=== PATIENT | female | born 1955 | race Caucasian/White ===

== ENCOUNTER 2020-04-02 23:42 | Inpatient (IN) | payer MEDICARE, SELFPAY ==
[2020-04-02 23:42] VITALS: TEMP 35.9; BMI 30.2
[2020-04-02 23:47] VITALS: PULSE 115; RESP 14; O2SAT 100
[2020-04-02 23:49] VITALS: BP 44/19; BP 78/25; PULSE 164; PULSE 47; RESP 10; RESP 12; TEMP 35.7; O2SAT 100; O2SAT 99
--- NOTE | 2020-04-02 23:54 | EKG12_ITS ---
Test Reason : RESP FAILURE Blood Pressure : / mmHG Vent. Rate : 114 BPM Atrial Rate : 114 BPM P-R Int : 174 ms QRS Dur : 084 ms QT Int : 322 ms P-R-T Axes : 040 077 012 degrees QTc Int : 443 ms Sinus tachycardia Right atrial enlargement Nonspecific ST and T wave abnormality Abnormal ECG Confirmed by MAYA FARRAR, PAPITO ([id number]), scientific editor ROBERT BA ([id number]) on 04/03/2020 12:54:02 PM Referred By: DARIUS Confirmed By:PAPITO TREJO MD
[2020-04-03] VITALS (50 sets, daily range): BP systolic 109–220; BP diastolic 50–114; PULSE 75–116; RESP 12–97; TEMP 35.9–38.7; O2SAT 16–100; BMI 26.4; BMI 58.2
--- NOTE | 2020-04-03 | RAD_ITS ---
STUDY: X-RAY CHEST REASON FOR EXAM: Female, 64 years old. Endotracheal and orogastric tube placements. TECHNIQUE: AP portable chest. COMPARISON: January 24, 2017. FINDINGS: Endotracheal tube tip 3.9 cm above the homer. Orogastric tube looped in the stomach with tip in the gastric fundus under the apex of the left hemidiaphragm. Subtle patchy perihilar and bibasilar lung opacities. Small right pleural effusion may be present. No pneumothorax. Normal size heart. Normal mediastinum and santiago. Normal visualized pulmonary arteries. Normal visualized aortic arch and descending thoracic aorta. Normal visualized thoracic spine. Deformity of the right humeral head unchanged. Degenerative changes of the left shoulder. There is no demonstrated abnormality of the visualized soft tissue structures of the upper abdomen. RAD/Chest 1 View (Portable) IMPRESSION: Support tubes in their expected locations. Mild vascular congestion and/or bilateral pneumonia. Electronically Signed: Raad Farrell MD at 1:14 EST , Service support ,
[2020-04-03] MEDS: Etomidate 20 MG/10 ML Vial 22 MG IV (00:03)
[2020-04-03] MEDS: Rocuronium Bromide 50 MG/5 ML Vial 100 MG IV (00:03)
[2020-04-03] MEDS: 0.9% Normal Saline 1,000 ML 1000 ML IV (00:04)
[2020-04-03] MEDS: Ipratropium/Albuterol Sulfate 3 ML AMPUL.NEB INHALATION ×5 (00:05→18:57)
[2020-04-03] MEDS: Albuterol 2.5 MG/3 ML VIAL.NEB. INHALATION ×3 (00:05)
--- NOTE | 2020-04-03 00:09 | ED.DCSUM_ITS ---
History of Present Illness Chief Complaint: CPR Informant: Patient Onset: Today Context: Sudden Onset Timing: Continuous Current Severity: Severe Maximum Severity: Severe Narrative: The patient is a 64-year-old female with questionable history of COPD, history of prior drug abuse, who presents to the emergency department with acute shortness of breath. Patient lives with her boyfriend. He apparently called because the patient was unresponsive. On squad arrival, the patient had pinpoint pupils and was apneic. There was drug paraphernalia at the scene. She was given intranasal Narcan. After Narcan, the patient became alert, but acutely combative, dyspneic, and markedly hypertensive. There is also concern for methamphetamine use. Squad was able to establish an EJ. The patient was not tolerating BiPAP and was combative the squad. On arrival, she is tachypneic and cyanotic. She does not give much history. Her saturations were in the upper 50s to low 60s. Prior similar symptoms: No Recent Illness/Hospitalization: No Past Medical History - Allergies and Home Meds Allergies/Adverse Reactions: Allergies No Known Allergies Allergy (Verified 01/21/17 17:53) Prior records reviewed: Yes Past Medical History: - - History of severe smoking, history of drug abuse Surgical History: noncontributory Smoking Status: Unknown if ever smoked Review of Systems ROS: Unable to Obtain Physical Exam Vital Signs/Narrative: Vital Signs Temp Temp Pulse Pulse Pulse Resp Resp 04/03/20 00:01 96.7 F L 113 H 14 04/02/20 23:49 96.3 F L 47 L 164 H 10 L 04/02/20 23:42 96.7 F L Resp BP BP BP Pulse Ox 04/03/20 00:01 220/110 H 100 04/02/20 23:49 12 44/19 L 78/25 L 04/02/20 23:42 Inital Vital Signs reviewed: Yes General: Acute Distress Head: Normocephalic Eyes: Perrl, EOMI Neck: Supple Cardiovascular: Regular rate, No murmurs, Tachycardia Respiratory: Diminished, Decreased Air Movement Abdomen: Soft, Nontender, Nondistended, Normal bowel sounds Extremities: Nontender Skin: Cyanosis Neurological: Confused, Disoriented Psychological: Agitated Diagnostic/Tx/Re-eval Clinical Impression(s) from Imaging Studies Chest X-Ray 04/03/20 00:00 IMPRESSION: Support tubes in their expected locations. Mild vascular congestion and/or bilateral pneumonia. Electronically Signed: Raad Farrell MD at 1:14 EST , Service support , Abnormal Lab Results 04/03/20 04/03/20 04/03/20 00:08 00:10 00:10 WBC 20.2 H RBC 4.81 Hgb 15.5 H Hct 50.4 H MCV 104.8 H MCH 32.2 H MCHC 30.8 L RDW Std Deviation 56.0 H RDW Coeff of Josue 14.2 Plt Count 323 MPV 9.8 Immature Gran % (Auto) 1.100 H Neut % (Auto) 77.4 H Lymph % (Auto) 14.9 L [place] % (Auto) 5.8 Eos % (Auto) 0.3 Baso % (Auto) 0.5 Absolute Neuts (auto) 15.6 H Absolute Lymphs (auto) 3.00 Nucleated RBC % 0 PT INR Specimen Type Sample Site pH Bicarbonate Actual Total CO2 Base Excess O2 Saturation O2 % ABG pCO2 ABG pO2 Respiration Rate O2 Delivery Device Vent Mode Tidal Volume POC PEEP Sodium 142 Potassium 4.1 Chloride 111 H Carbon Dioxide 24.0 Anion Gap 7 BUN 41 H Creatinine 1.62 H Estim Creat Clear Calc 28.11 Est GFR (MDRD) Af Amer 41 L Est GFR (MDRD) Non-Af 34 L BUN/Creatinine Ratio 25.3 H Glucose 136 H Lactic Acid Calcium 8.9 Phosphorus Magnesium Total Bilirubin 0.40 AST 302 H ALT 221 H Alkaline Phosphatase 129 H Troponin I 0.112 H B-Natriuretic Peptide Total Protein 7.4 Albumin 3.7 Globulin 3.7 Albumin/Globulin Ratio 1.0 Lipase 59 L Urine Color Urine Clarity Urine pH Ur Specific [place] Urine Protein Urine Glucose (UA) Urine Ketones Urine Occult Blood Urine Nitrite Urine Bilirubin Urine Urobilinogen Ur Leukocyte Esterase Urine RBC Urine WBC Ur Squamous Epith Cells Urine Bacteria Urine Mucus Urine Opiates Screen POSITIVE H Urine Methadone Screen NEGATIVE Ur Barbiturates Screen NEGATIVE Ur Phencyclidine Scrn NEGATIVE Ur Amphetamines Screen POSITIVE H U Methamphetamin-MDMA POSITIVE H U Benzodiazepines Scrn NEGATIVE Urine Cocaine Screen NEGATIVE U Cannabinoids Screen POSITIVE H Ur Drug Screen Comment Ethyl Alcohol 04/03/20 04/03/20 04/03/20 00:10 00:10 00:10 WBC RBC Hgb Hct MCV MCH MCHC RDW Std Deviation RDW Coeff of Jouse Plt Count MPV Immature Gran % (Auto) Neut % (Auto) Lymph % (Auto) [place] % (Auto) Eos % (Auto) Baso % (Auto) Absolute Neuts (auto) Absolute Lymphs (auto) Nucleated RBC % PT INR Specimen Type Sample Site pH Bicarbonate Actual Total CO2 Base Excess O2 Saturation O2 % ABG pCO2 ABG pO2 Respiration Rate O2 Delivery Device Vent Mode Tidal Volume POC PEEP Sodium Potassium Chloride Carbon Dioxide Anion Gap BUN Creatinine Estim Creat Clear Calc Est GFR (MDRD) Af Amer Est GFR (MDRD) Non-Af BUN/Creatinine Ratio Glucose Lactic Acid 1.8 Calcium Phosphorus Magnesium Total Bilirubin AST ALT Alkaline Phosphatase Troponin I B-Natriuretic Peptide 376.8 H Total Protein Albumin Globulin Albumin/Globulin Ratio Lipase Urine Color Urine Clarity Urine pH Ur Specific [place] Urine Protein Urine Glucose (UA) Urine Ketones Urine Occult Blood Urine Nitrite Urine Bilirubin Urine Urobilinogen Ur Leukocyte Esterase Urine RBC Urine WBC Ur Squamous Epith Cells Urine Bacteria Urine Mucus Urine Opiates Screen Urine Methadone Screen Ur Barbiturates Screen Ur Phencyclidine Scrn Ur Amphetamines Screen U Methamphetamin-MDMA U Benzodiazepines Scrn Urine Cocaine Screen U Cannabinoids Screen Ur Drug Screen Comment Ethyl Alcohol < 3.0 04/03/20 04/03/20 04/03/20 00:10 00:10 00:16 WBC RBC Hgb Hct MCV MCH MCHC RDW Std Deviation RDW Coeff of Josue Plt Count MPV Immature Gran % (Auto) Neut % (Auto) Lymph % (Auto) [place] % (Auto) Eos % (Auto) Baso % (Auto) Absolute Neuts (auto) Absolute Lymphs (auto) Nucleated RBC % PT 14.3 INR 1.2 Specimen Type Sample Site pH Bicarbonate Actual Total CO2 Base Excess O2 Saturation O2 % ABG pCO2 ABG pO2 Respiration Rate O2 Delivery Device Vent Mode Tidal Volume POC PEEP Sodium Potassium Chloride Carbon Dioxide Anion Gap BUN Creatinine Estim Creat Clear Calc Est GFR (MDRD) Af Amer Est GFR (MDRD) Non-Af BUN/Creatinine Ratio Glucose Lactic Acid Calcium Phosphorus 5.7 H Magnesium 2.4 Total Bilirubin AST ALT Alkaline Phosphatase Troponin I B-Natriuretic Peptide Total Protein Albumin Globulin Albumin/Globulin Ratio Lipase Urine Color Yellow Urine Clarity Clear Urine pH 6.0 Ur Specific [place] 1.020 Urine Protein 100 H Urine Glucose (UA) Normal Urine Ketones Negative Urine Occult Blood 25 H Urine Nitrite Negative Urine Bilirubin Negative Urine Urobilinogen Normal Ur Leukocyte Esterase Negative Urine RBC 0-5 SEEN Urine WBC 0 SEEN Ur Squamous Epith Cells 0 SEEN Urine Bacteria 0 SEEN Urine Mucus 0 SEEN Urine Opiates Screen Urine Methadone Screen Ur Barbiturates Screen Ur Phencyclidine Scrn Ur Amphetamines Screen U Methamphetamin-MDMA U Benzodiazepines Scrn Urine Cocaine Screen U Cannabinoids Screen Ur Drug Screen Comment Ethyl Alcohol 04/03/20 00:17 WBC RBC Hgb Hct MCV MCH MCHC RDW Std Deviation RDW Coeff of Josue Plt Count MPV Immature Gran % (Auto) Neut % (Auto) Lymph % (Auto) [place] % (Auto) Eos % (Auto) Baso % (Auto) Absolute Neuts (auto) Absolute Lymphs (auto) Nucleated RBC % PT INR Specimen Type ART Sample Site R Radial pH 7.08 L* Bicarbonate Actual 23.5 Total CO2 26 Base Excess -6 L O2 Saturation 99 O2 % 100 ABG pCO2 78.7 H* ABG pO2 197 H Respiration Rate 14 O2 Delivery Device Adult Vent Vent Mode AC Tidal Volume 450 POC PEEP 5 Sodium Potassium Chloride Carbon Dioxide Anion Gap BUN Creatinine Estim Creat Clear Calc Est GFR (MDRD) Af Amer Est GFR (MDRD) Non-Af BUN/Creatinine Ratio Glucose Lactic Acid Calcium Phosphorus Magnesium Total Bilirubin AST ALT Alkaline Phosphatase Troponin I B-Natriuretic Peptide Total Protein Albumin Globulin Albumin/Globulin Ratio Lipase Urine Color Urine Clarity Urine pH Ur Specific [place] Urine Protein Urine Glucose (UA) Urine Ketones Urine Occult Blood Urine Nitrite Urine Bilirubin Urine Urobilinogen Ur Leukocyte Esterase Urine RBC Urine WBC Ur Squamous Epith Cells Urine Bacteria Urine Mucus Urine Opiates Screen Urine Methadone Screen Ur Barbiturates Screen Ur Phencyclidine Scrn Ur Amphetamines Screen U Methamphetamin-MDMA U Benzodiazepines Scrn Urine Cocaine Screen U Cannabinoids Screen Ur Drug Screen Comment Ethyl Alcohol - Rhythm Strip Rhythm Strip: Sinus Tach Rate: 110 Ectopy: None - EKG Initial EKG Interpretation: Sinus Tachycardia, Non-Specific ST Changes Prior: No Prior - Medical Decision Making On arrival, the patient is cyanotic and combative. We were unable to get a good peripheral pulse ox. The highest was in the mid 60s. She would not tolerate the BiPAP. Decision was made to intubate the patient. The patient was intubated easily using glide scope. A 7.5 tube was placed. However, immediately after intubation, the patient had bradycardia and then lost pulses. This was a pproximately 5 to 10 seconds. CPR was started immediately. Patient was given 1 mg of epinephrine. After 2 minutes of CPR, the patient had return of spontaneous circulation. She had a perfusing rhythm. My suspicion is that she likely was markedly hypoxic causing her bradycardia and loss of pulse. Now that her oxygen is improved, her vitals have stabilized. The patient ended up being very hypertensive. She was given 2 mg of Ativan as I do feel that this is likely all drug-induced. Due to concern for aspiration, she was covered with Zosyn. She does have a marked leukocytosis, evidence of mild acute kidney injury, and her blood gas does show that she is hypercapnic. The patient was ventilated. Chest x-ray shows evidence of pulmonary edema and questionable pneumonia. The patient was also given Lasix. Noncontrast head CT was unremarkable. Her urine tox was positive for multiple substances. At this point, given the patient's acute respiratory failure, she will be admitted to the intensive care unit. Impression 1. Acute respiratory failure 2. Drug overdose 3. Flash pulmonary edema 4. Aspiration pneumonia 5. Sepsis 6. Respiratory arrest 7. Intubation by ED physician - Critical Care Time Critical care time (excluding procedures): 30-74 minutes, Discussing w/Patient &/or Family/[employer]r, Discussing w/Consultants, Arranging Admission or Transfer, Performing Direct Patient Care at Bedside ED Disposition - Plan for ED Patient:
[2020-04-03 00:19] LABS: Absolute Neutrophil Count 15.6 X10^3/uL (2.0-7.7); Basophil% 0.5 % (0-1); Eosinophil# 0.06 X10^3/uL; Eosinophils% 0.3 % (0-5); Hematocrit 50.4 % (37-47); Hemoglobin 15.5 g/dL (12.0-15.0); Lymphocyte % 14.9 % (19-41); Mean Corp Hgb Conc 30.8 g/dL (32-36); Mean Corpuscular Hgb 32.2 pg (27.0-32.0); Mean Corpuscular Volume 104.8 fL (81-99); Mean Platelet Vol. 9.8 fl (6.2-12.0); Monocyte# 1.18 X10^3/uL; Monocyte% 5.8 % (0-10); NRBC Flagged by Analyzer 0 % (0-5); Neutrophil # 15.62 X10^3/uL (2.7-7.7); Neutrophil % 77.4 % (47-70); Platelet Count 323 K/mm3 (150-450); RBC Distribution Width CV 14.2 % (11.6-14.6); Red Blood Count 4.81 M/mm3 (4.2-5.4); White Blood Count 20.2 K/mm3 (4.4-11.0)
[2020-04-03 00:20] LABS: Bacteria 0 SEEN /hpf (None Seen); Color, Urine Yellow (Yellow); Glucose, Dipstick Normal (Normal); Ketone-Dipstick Negative (Negative); Leukocyte Esterase-Dipstick Negative /ul (Negative); Mucous, Urine 0 SEEN /hpf (<or=2+); Nitrite-Dipstick Negative (Negative); Occult Blood-Urine 25 /ul (Negative); Protein-Dipstick 100 mg/dl (Negative); Squamous Epithelial Cells - UA 0 SEEN /hpf (5-10); Urine Bilirubin Dipstick Negative (Negative); Urine Clarity Clear (Clear); Urine Urobilinogen Normal (Normal); White Blood Cells 0 SEEN /hpf (0-5)
[2020-04-03] MEDS: LORazepam 2 MG/ML Syringe IV (00:25)
[2020-04-03 00:26] LABS: Base Excess -6 mmol/L (-2 to +2); Bicarbonate 23.5 mmol/L (22-26); Blood Gas Specimen Type ART; FI02 100; Mode AC; O2 Delivery Device Adult Vent; PEEP 5; PO2 197 mmHG (75-100); RR 14; SITE R Radial; SO2 99 % (95-99); Total Carbon Dioxide 26 mmol/L; Vt 450; pCO2 78.7 mmHg (35-45); pH 7.08 (7.35-7.45)
[2020-04-03 00:26] LABS: Red Blood Cells-Urine 0-5 SEEN /hpf (0-5)
[2020-04-03 00:31] LABS: Alcohol, Blood (Medical)-Serum < 3.0 mg/dL
[2020-04-03 00:34] LABS: International Normalized Ratio 1.2; Prothrombin Time (Protime)PT. 14.3 SECONDS (11.7-14.9)
[2020-04-03 00:34] LABS: Amphetamine Urine VISTA POSITIVE (<1000 ng/mL); Barbiturate Urine VISTA NEGATIVE (< 200 ng/mL); Benzodiazepine Urine VISTA NEGATIVE (< 200 ng/mL); Cocaine Urine VISTA NEGATIVE (< 300 ng/mL); Ecstacy Urine VISTA POSITIVE (< 500 ng/mL); Methadone Urine VISTA NEGATIVE (< 300 ng/mL); PCP Urine VISTA NEGATIVE (< 25 ng/mL); THC Urine VISTA POSITIVE (< 50 ng/mL); Vista UDS pH Range 6
[2020-04-03 00:35] LABS: BNP,B-Type NATRIURETIC PEPTIDE 376.8 pg/mL (0-100)
[2020-04-03 00:39] LABS: AST(SGOT) 302 U/L (15-37); Alanine Aminotransfer ALT/SGPT 221 U/L (13-56); Albumin, Serum 3.7 g/dL (3.2-5.0); Alkaline Phosphatase 129 U/L (45-117); Anion Gap 7 (5-15); BUN 41 mg/dL (7-18); BUN/Creat Ratio 25.3 RATIO (10-20); Calcium,Total 8.9 mg/dL (8.5-10.1); Chloride 111 mmol/L (98-107); Creatinine, Serum 1.62 mg/dL (0.55-1.02); EST Glomerular Filtration Rate 34 mL/min (>60); Est Glom Filt Rate - Afr Amer 41 mL/min (>60); Estimated Creatinine Clearance 28.11 ml/min; Globulin 3.7 g/dL (2.2-4.2); Glucose 136 mg/dL (74-106); Lipase 59 U/L (73-393); Potassium 4.1 mmol/L (3.5-5.1); Protein, Total 7.4 g/dL (6.4-8.2); Sodium Level 142 mmol/L (136-145)
[2020-04-03] MEDS: Furosemide 40 MG/4 ML Vial IV ×3 (00:42→17:06)
--- NOTE | 2020-04-03 00:45 | HP.PCM_ITS ---
Problem List (1) Sepsis Status: Acute Qualifiers: Sepsis type: sepsis due to unspecified organism Sepsis acute organ dysfunction status: unspecified Qualified Code(s): A41.9 - Sepsis, unspecified organism (2) Respiratory failure with hypoxia and hypercapnia Status: Acute Qualifiers: Chronicity: acute Qualified Code(s): J96.01 - Acute respiratory failure with hypoxia; J96.02 - Acute respiratory failure with hypercapnia (3) Pneumonia Status: Acute Qualifiers: Pneumonia type: due to unspecified organism Laterality: unspecified laterality Lung location: unspecified part of lung Qualified Code(s): J18.9 - Pneumonia, unspecified organism (4) Flash pulmonary edema Status: Acute (5) Opiate overdose Status: Acute Qualifiers: Encounter type: initial encounter Injury intent: undetermined intent Qualified Code(s): T40.604A - Poisoning by unspecified narcotics, undetermined, initial encounter (6) Cardiac arrest Status: Acute (7) CORNELIUS (acute kidney injury) Status: Acute (8) Elevated LFTs Status: Acute (9) Tobacco use Status: Chronic (10) HTN (hypertension) Status: Chronic Qualifiers: Hypertension type: essential hypertension Qualified Code(s): I10 - Essential (primary) hypertension (11) HLD (hyperlipidemia) Status: Chronic Qualifiers: Hyperlipidemia type: unspecified Qualified Code(s): E78.5 - Hyperlipidemia, unspecified (12) Anxiety and depression Status: Chronic (13) Opiate abuse, continuous Status: Chronic (14) Alcohol abuse Status: Chronic History of Present Illness Date of Admission: 04/03/20 Chief Complaint: OD, cardiac arrest The patient is a 64 y/o F w/ PMHx: Hypothyroidism, Anxiety and Depression, Heavy Tobacco use, EtOH Abuse (6 pack beer daily per daughter), Known Opiate abuse with prior history of withdrawal treatments with unfortunate relapse over the last several years secondary to the of her and son, Obesity who presents to the [facility] ED on 04/03/20 found unresponsive and cyanotic around the mouth and finger tips with agonal breathing per her boyfriend with recent intake of unclear drugs prompting her boyfriend to call EMS. Upon evaluation EMS noted that she was unresponsive with pinpoint pupils with immediate administration of Narcan awaking the patient. Upon transition to the ED patient was noted to be s ignificantly hypertensive with hypoxia in the 60s with no improvement despite even BiPAP usage with immediate intubation upon ED presentation. While in the emergency room patient did have onset of significant bradycardia with cardiac arrest with lack of pulse with initiation of 2 minutes of CPR and 1 mg of epinephrine with resumption of circulation. Additional work-up in the ED included initially T 96.7, heart rate 115, BP is initially extremely hypotensive however following intubation blood pressures became elevated at 220/114, most recent vital signs with T1 100.4 core temperature, heart rate 75, BP 109/64, respiratory rate 21, 97% mechanically ventilated with 70% FiO2, CBC with WBC 20.2, hemoglobin 15.5, platelet 323 with left shift, unremarkable coags, ABG with pH 7.08, PCO2 78.7, PO2 197 ventilated, CMP with chloride 111, BUN/creatinine 41/1.62, glucose 136, lactic acid 1.8, Phos 5.7, magnesium 2.4, total bilirubin 0.40, AST/ALT 302/221, alk phos 129, troponin 0 0.112, BNP 376.8 , lipase 59, urinalysis with specific gravity 1.020 otherwise not marked appearing, UDS with positive opiates, amphetamines, methamphetamines, cannabis, ethyl alcohol less than 3, blood culture x2 pending per ED, chest x-ray with vascular congestion versus bilateral pneumonia with ET tube and OG in place, CT of the brain with no acute intracranial findings per ED report but final read per radiology pending upon evaluation, EKG with sinus tachycardia with nonspecific ST changes with no acute evidence of ischemia. In the ED patient administered normal saline, rocuronium, Zosyn, Ativan, Lasix 40 mg IV x1, etomidate, DuoNeb and albuterol therapies, maintained on a Versed and fentanyl drip. Past Medical History Past Medical History (Chronic Problems): Chronic Problems Tobacco use (Chronic) HTN (hypertension) (Chronic) HLD (hyperlipidemia) (Chronic) Anxiety and depression (Chronic) Opiate abuse, continuous (Chronic) Alcohol abuse (Chronic) Allergies No Known Allergies Allergy (Verified 01/21/17 17:53) Home Medications: Ambulatory Orders Medication Instructions Recorded Amlodipine [Norvasc] 5 mg PO DAILY #30 tab 01/24/17 Amox/Clavulanate Tablet [Augmentin 875 mg PO Q12H #14 tab 01/24/17 Tablet] Fluoxetine [Prozac] 20 mg PO DAILY #30 cap 01/24/17 Folic Acid 1 mg PO DAILY@0800 #30 tab 01/24/17 Levothyroxine [Synthroid] 25 mcg PO DAILY@0600 #30 tab 01/24/17 Metoprolol Tartrate [Lopressor 50 mg PO BID #90 tab 01/24/17 (beta esha)] Nicotine [Nicoderm Cq (PBKC)] 21 mg TRANSDERM. DAILY #42 patch 01/24/17 Potassium Chloride Oral Tablet 20 meq PO DAILY #30 tab 01/24/17 [K-Dur] Thiamine Hydrochloride [Vitamin B1] 100 mg PO DAILYCM #30 tab 01/24/17 Surgical History: - - History of prior shoulder surgery, unclear for placement or arthroscopic per discussion with daughter, tailbone surgery, tonsillectomy. 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 Smoking Status: Current every day smoker Tobacco Use: Cigarettes Alcohol: Heavy - Per daughter report patient intake of at least 6 pack of beer daily. Drugs: - - Patient with reportedly OPD abuse but unclear specific history of usage, EMS commented on methamphetamines at scene, urine drug screen with positive opiates, amphetamine, methamphetamine, cannabis. - *Family History Maternal History Items: Hypertension Paternal History Items: Hypertension Review of Systems Unable to obtain accurate/complete ROS d/t: Unable to obtain as intubated, sedated, presented following OD. VTE Information - Inpt Only VTE Present on Admission: No VTE Mechan Device Prophylaxis: SCD's VTE Pharm Prophylaxis ordered?: Yes Subjective: Patient laying in the ED bed, sedated, intubated, no acute distress currently. Objective: Physical Examination: General: Patient sedated, intubated, laying in the ED bed, no acute distress noted. Skin: normal color, turgor, no icterus, cyanosis. HEENT: AT/NC, EOM unable to be assessed given intubated and sedated status, PERRLA, no longer pinpoint per EMS report initially with Narcan administration, dry MM, no carotid bruits or JVD noted. Lungs: Significantly coarse bilaterally, rales bases, intubated and sedated, symmetric rise, no obvious wheezing. Heart: Tachycardic with regular rhythm; no gallop, rub audible. Abdomen: soft, obese, NTTP, ND, normal BS, no HSM. Extremities: no cyanosis, clubbing, or edema. Neurological: Patient sedated, intubated, unable to answer any orientation questions; cognitive function not baseline intact; pupils equally reactive to light and accomodation; cranial nerves unable to be assessed given intubated and sedated status, not moving extremities to stimuli, strength accordingly severely globally decreased. Psychiatric: affect appears flat, sedated, no acute evidence of depressive or anxiety feelings. - Physical Exam Vitals/I&O's: Vital Signs Temp Pulse Resp BP Pulse Ox 100.3 F H 97 14 164/86 H 96 04/03/20 00:39 04/03/20 00:39 04/03/20 00:39 04/03/20 00:39 04/03/20 00:39 Oxygen Delivery Method Mechanical Ventilator Weight: 165 lb Body Mass Index (BMI) 30.2 Finger Stick Blood Glucose 77 Laboratory Results 04/03/20 00:08: Urine Opiates Screen POSITIVE H, Urine Methadone Screen NEGATIVE, Ur Barbiturates Screen NEGATIVE, Ur Phencyclidine Scrn NEGATIVE, Ur Amphetamines Screen POSITIVE H, U Methamphetamin-MDMA POSITIVE H, U Benzodiazepines Scrn NEGATIVE, Urine Cocaine Screen NEGATIVE, U Cannabinoids Screen POSITIVE H, Ur Drug Screen Comment 04/03/20 00:10: WBC 20.2 H, RBC 4.81, Hgb 15.5 H, Hct 50.4 H, MCV 104.8 H, MCH 32.2 H, MCHC 30.8 L, RDW Std Deviation 56.0 H, RDW Coeff of Josue 14.2, Plt Count 323, MPV 9.8, Immature Gran % (Auto) 1.100 H, Neut % (Auto) 77.4 H, Lymph % (Auto) 14.9 L, [place] % (Auto) 5.8, Eos % (Auto) 0.3, Baso % (Auto) 0.5, Absolute Neuts (auto) 15.6 H, Absolute Lymphs (auto) 3.00, Nucleated RBC % 0 04/03/20 00:10: Sodium 142, Potassium 4.1, Chloride 111 H, Carbon Dioxide 24.0, Anion Gap 7, BUN 41 H, Creatinine 1.62 H, Estim Creat Clear Calc 28.11, Est GFR (MDRD) Af Amer 41 L, Est GFR (MDRD) Non-Af 34 L, BUN/Creatinine Ratio 25.3 H, Glucose 136 H, Calcium 8.9, Total Bilirubin 0.40, AST 302 H, ALT 221 H, Alkaline Phosphatase 129 H, Troponin I 0.112 H, Total Protein 7.4, Albumin 3.7, Globulin 3.7, Albumin/Globulin Ratio 1.0, Lipase 59 L 04/03/20 00:10: Ethyl Alcohol < 3.0 04/03/20 00:10: Lactic Acid Pending 04/03/20 00:10: B-Natriuretic Peptide 376.8 H 04/03/20 00:10: Urine Color Yellow, Urine Clarity Clear, Urine pH 6.0, Ur Specific [place] 1.020, Urine Protein 100 H, Urine Glucose (UA) Normal, Urine Ketones Negative, Urine Occult Blood 25 H, Urine Nitrite Negative, Urine Bilirubin Negative, Urine Urobilinogen Normal, Ur Leukocyte Esterase Negative, Urine RBC 0-5 SEEN, Urine WBC 0 SEEN, Ur Squamous Epith Cells 0 SEEN, Urine Bacteria 0 SEEN, Urine Mucus 0 SEEN 04/03/20 00:10: Phosphorus Pending, Magnesium Pending 04/03/20 00:16: PT 14.3, INR 1.2 04/03/20 00:17: Specimen Type ART, Sample Site R Radial, pH 7.08 L*, Bicarbonate Actual 23.5, Total CO2 26, Base Excess -6 L, O2 Saturation 99, O2 % 100, ABG pCO2 78.7 H*, ABG pO2 197 H, Respiration Rate 14, O2 Delivery Device Adult Vent, Vent Mode AC, Tidal Volume 450, POC PEEP 5 Current Medications Sodium Chloride () 1,000 mls @ 1,000 mls/hr IV .Q1H ONE Stop: 04/03/20 00:53 Last Admin: 04/03/20 00:04 Dose: 1,000 mls/hr Documented by: Fentanyl Citrate 1,000 mcg/ (Sodium Chloride) 100 mls @ 2.5 mls/hr CONT INF .Q40H [facility]; Protocol Last Admin: 04/03/20 00:28 Dose: 25 mcg/hr, 2.5 mls/hr Documented by: Midazolam HCl 50 mg/ Sodium (Chloride) 100 mls @ 2 mls/hr CONT INF .Q50H [facility]; Protocol Last Admin: 04/03/20 00:16 Dose: 1 mg/hr, 2 mls/hr Documented by: Piperacillin Sod/Tazobactam (Sod 4.5 gm/ Sodium Chloride) 100 mls @ 200 mls/hr IV X1 ONE Stop: 04/03/20 01:06 Assessment/Plan All Active Problems Sepsis (Acute) Respiratory failure with hypoxia and hypercapnia (Acute) Pneumonia (Acute) Flash pulmonary edema (Acute) Opiate overdose (Acute) Cardiac arrest (Acute) CORNELIUS (acute kidney injury) (Acute) Elevated LFTs (Acute) The patient is a 64 y/o F w/ PMHx: Hypothyroidism, Anxiety and Depression, Heavy Tobacco use, EtOH Abuse (6 pack beer daily per daughter), Known Opiate abuse with prior history of withdrawal treatments with unfortunate relapse over the last several years secondary to the of her and son, Obesity who presents to the [facility] ED on 04/03/20 found unresponsive and cyanotic around the mouth and finger tips with agonal breathing per her boyfriend with recent intake of unclear drugs prompting her boyfriend to call EMS. 1. Acute Sepsis secondary to Acute Hypoxic and Hypercarbic Respiratory Railure secondary to Acute Opiate Overdose and Suspected Aspiration pneumonia as well as questionable flash pulmonary edema: CXR in the ED w/ questionable vascular con gestion versus pneumonia. Admission CBC w/ WBC elevation 20.2 with significant left shift. 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 Given concern for congestion patient was administered IV Lasix x1 in the emergency room, will plan repeat chest x-ray in a.m. and additional a.m. Lasix dose but defer further than this, echocardiogram requested as noted, continue treatment as noted below. Bld cx x 2 obtained in the ED. request case management involvement for substance abuse. 2. Indeterminate cardiac enzyme with cardiac arrest with ROSC: Patient with cardiac arrest likely secondary demand with overdose with respiratory failure, EKG with sinus tachycardia with no acute evidence of ischemia, troponin 0.112, BNP 376.8, chest x-ray with concern for overload with IV Lasix administered in the ED, will maintain on telemetry monitoring, cycle cardiac enzymes, magnesium 2.4, will cautiously maintain on aspirin therapy given elevated liver functions but normal coags noted, obtain FLP, maintain on therapeutic Lovenox pending repeat cardiac enzyme trending cautiously, will obtain echocardiogram. Given etiology will defer immediate cardiology involvement pending this work-up but if worsening cardiac enzymes would consult cardiology for further evaluation. 3. Elevated liver enzymes: Likely secondary to acute presentation with shock/demand with overdose with cardiac arrest. Admission AST/ALT 302/221, alk phos 129, given history of polysubstance abuse however will obtain concurrently hepatitis panel, will trend CMP. May also consider liver ultrasound. 4. Acute kidney injury: Secondary to acute presentation with shock/demand with overdose with cardiac arrest. Admission BUN/Cr 41/1.62, prior baseline creatinine noted to be 0.8 most recently although no recent labs. Given patient presentation with overloaded appearance with likely suspected flash pulmonary edema will defer any aggressive hydration, will continue to diurese, holding nephrotoxic regimen, if no significant improvement will obtain FeNa assessment, renal US. 5. Anxiety and depression: Likely contributing significantly to patient's polysubstance abuse with of her son and spouse, will continue patient Prozac regimen, will greatly benefit from counseling. 6. EtOH Abuse: Patient with routine consumption of up to 6 beers daily per her daughter. Will maintain on CIWA protocol, MVI, thiamine and folic acid. Will request case management consultation once appropriate for substance abuse. 7. Hypertension: We will hold patient Norvasc as well as metoprolol given blood pressures trending down with usage of sedated regimen for continued intubation/ventilation status, may resume once appropriate. 8. Hypothyroidism: Continue home synthroid regimen. 9. Tobacco Abuse: Encouraged cessation, inpatient consultation per RT, NR if desired. 10. Obesity: Weight loss and lifestyle changes will be encouraged. 11. DVT prophylaxis: SCDs, Lovenox. 12. CODE STATUS: Discussed patient's presentation with her daughter who is present. Daughter reports the patient has had significant issues over the last several years with depression and she cannot be sure that this was not a suicide attempt. Patient currently intubated and sedated and discussed current plan of care with daughter at length. Discussed CODE status at length including difference between FULL code, DNR-CCA and DNR-CC status. Following discussions about the differences in these status, daughter agreed with continued intubation with full code measures. Advanced Care Planning Face to Face Time: 16 minutes. Inpatient E&M: 09106 Init Hosp L3 Procedures: 04711 Advncd Care Plan 30 Min
[2020-04-03 00:50] LABS: Lactic Acid 1.8 mmol/L (0.4-1.9)
[2020-04-03 00:58] LABS: Magnesium 2.4 mg/dL (1.6-2.6); Phosphorus 5.7 mg/dL (2.5-4.9)
--- NOTE | 2020-04-03 01:24 | CPS ---
Dr. Orosco notified regarding pt.'s critically low pH (7.08), as well as pt.'s critically high PaCO2 (78.7 mmHg).
--- NOTE | 2020-04-03 01:31 | ED.RN ---
FAMILY CONTACT: KAYLEN COREAS [phone], NADIR (S/O) [phone].
--- NOTE | 2020-04-03 02:04 | ECHOD_ITS ---
Reason For Study: CARDIAC ARREST Procedure This was a 2D Doppler, Color Flow transthoracic echocardiogram. The study was technically difficult. Exam performed portable in ICU/CCU. PT is on ventilator. Left Ventricle Normal LV size. Severe assymetric septal hypertrophy. Left ventricular systolic function is hyperdynamic. The estimated ejection fraction is 75 %. Transmitral doppler flow suggestive of impaired relaxation of left ventricle. No regional wall motion abnormalities noted. Right Ventricle Mildly dilated right ventricle. Mild global right ventricular systolic dysfunction. Atria Normal left atrium. Normal right atrium. No doppler evidence for ASD. Mitral Valve There is mild mitral annular calcification. Extension of the mitral annular calcification onto the base of the posterior mitral valve leaflet. Mild (1+) mitral valve insufficiency. Tricuspid Valve Normal tricuspid valve. Mild to moderate (1-2+) tricuspid valve insufficiency. Right ventricular systolic pressure estimated to be 76 mmHg. Aortic Valve Trisinus/trileaflet aortic valve. Normal aortic valve. Pulmonic Valve The pulmonic valve is not well visualized. Great Vessels Normal sized aortic root. Pericardium/Pleural No pericardial effusion. MMode/2D Measurements & Calculations LVIDd: 3.6 cm IVSd: 1.7 cm Ao root diam: 2.7 cm LVIDs: 2.6 cm LVPWd: 1.3 cm RVDd: 3.5 cm FS: 27.4 % LAV(MOD-bp): 39.2 ml LA A4 area: 14.6 cm2 LA dimension(2D): 3.2 cm LAV(MOD-bp) Indexed: 24.2 ml/m2 LAV(MOD-sp2): 38.7 ml LAV(MOD-sp4): 35.0 ml RA A4 area: 14.4 cm2 Doppler Measurements & Calculations MV E max buck: 58.6 cm/sec Lat Peak E' Buck: 6.9 cm/sec Med Peak E' Buck: 3.7 cm/sec MV A max buck: 127.2 cm/sec E/E' lat: 8.5 E/E' med: 15.9 MV E/A: 0.46 Ao V2 max: 148.8 cm/sec LV V1 max: 93.7 cm/sec PA V2 max: 98.8 cm/sec Ao max P.9 mmHg LV V1 max P.5 mmHg TR max buck: 416.1 cm/sec TR max P.1 mmHg Interpretation Summary The study was technically difficult. Left ventricular systolic function is hyperdynamic. The estimated ejection fraction is 75 %. Severe assymetric septal hypertrophy. Mildly dilated right ventricle. Mild global right ventricular systolic dysfunction. There is mild mitral annular calcification. Extension of the mitral annular calcification onto the base of the posterior mitral valve leaflet. Mild (1+) mitral valve insufficiency. Mild to moderate (1-2+) tricuspid valve insufficiency. Right ventricular systolic pressure estimated to be 76 mmHg c/w severe pulmonary hypertension. Transmitral doppler flow suggestive of impaired relaxation of left ventricle Ordering Physician: Yenifer Sneed Referring Physician: ROGERS PCP Performed By: Carleen Wong RDCS, RVT
[2020-04-03] MEDS: Propofol 10MG/Ml 1,000 MG/100 ML Bottle 4.5 MG CONT INF (02:43)
[2020-04-03 03:06] LABS: Allen Test Positive; Base Excess -4 mmol/L (-2 to +2); Bicarbonate 22.2 mmol/L (22-26); Blood Gas Specimen Type ART; FI02 70; Mode AC; O2 Delivery Device Adult Vent; PEEP 5; PO2 68 mmHG (75-100); RR 16; SITE R Radial; SO2 91 % (95-99); Total Carbon Dioxide 24 mmol/L; Vt 500; pCO2 45.3 mmHg (35-45)
[2020-04-03 03:14] LABS: Absolute Lymphocyte Count 0.53 X10^3/uL (0.83-4.51); Absolute Neutrophil Count 14.5 X10^3/uL (2.0-7.7); Basophil# 0.03 X10^3/uL; Basophil% 0.2 % (0-1); Differential Indicated SCAN CRITERIA MET; Hematocrit 50.8 % (37-47); Hemoglobin 15.6 g/dL (12.0-15.0); Lymphocyte # 0.53 X10^3/ul (4.0); Lymphocyte % 3.3 % (19-41); Mean Corp Hgb Conc 30.7 g/dL (32-36); Mean Corpuscular Hgb 32.8 pg (27.0-32.0); Mean Corpuscular Volume 106.7 fL (81-99); Mean Platelet Vol. 9.8 fl (6.2-12.0); Monocyte# 0.72 X10^3/uL; Monocyte% 4.5 % (0-10); NRBC Flagged by Analyzer 0 % (0-5); Neutrophil # 14.53 X10^3/uL (2.7-7.7); Neutrophil % 91.6 % (47-70); POSITIVE DIFFERENTIAL YES; Platelet Count 215 K/mm3 (150-450); RBC Distribution Width CV 14.4 % (11.6-14.6); RBC Distribution Width SD 57.1 fl (35.1-43.9); Red Blood Count 4.76 M/mm3 (4.2-5.4); White Blood Count 15.9 K/mm3 (4.4-11.0)
[2020-04-03 03:55] LABS: ALB/GLOB Ratio 0.9 RATIO (0.9-2.4); AST(SGOT) 331 U/L (15-37); Alanine Aminotransfer ALT/SGPT 239 U/L (13-56); Albumin, Serum 3.6 g/dL (3.2-5.0); Alkaline Phosphatase 128 U/L (45-117); Anion Gap 12 (5-15); BUN 41 mg/dL (7-18); BUN/Creat Ratio 26.6 RATIO (10-20); Calcium,Total 9.7 mg/dL (8.5-10.1); Chloride 112 mmol/L (98-107); Cholesterol 164 mg/dL (200); Creatinine, Serum 1.54 mg/dL (0.55-1.02); EST Glomerular Filtration Rate 36 mL/min (>60); Est Glom Filt Rate - Afr Amer 44 mL/min (>60); Estimated Creatinine Clearance 26.86 ml/min; Glucose 89 mg/dL (74-106); High Density Lipoprotein 66 mg/dL; Potassium 4.3 mmol/L (3.5-5.1); Protein, Total 7.6 g/dL (6.4-8.2); Sodium Level 141 mmol/L (136-145); Triglycerides 114 mg/dL; Very Low Density Lipoprotein 23 mg/dL (5-40)
[2020-04-03 04:43] LABS: CPK Total, Creatine Kinase 1742 U/L (26-192); Triglycerides 110 mg/dL
[2020-04-03 04:49] LABS: HIV - WCH Non-Reactive (Nonreactive); Hepatitis B Surface Antibody Non-Reactive; Hepatitis B Surface Antigen Non-Reactive (Nonreactive); Hepatitis C Antibody Non-Reactive (Nonreactive)
[2020-04-03 05:14] LABS: M R Staph aureus DNA By PCR Negative (Negative); Probe Check PASS; Specimen Processing Control PASS
[2020-04-03] MEDS: Acetaminophen 650 MG/20 ML UDC GT (05:17)
[2020-04-03] MEDS: Levothyroxine 25 MCG TABLET PO (05:23)
[2020-04-03] MEDS: Enoxaparin 80 MG/0.8 ML Syringe 75 MG SC (05:23)
--- NOTE | 2020-04-03 05:46 | PCM.CON.CC ---
Reason for Consult Date of Consultation: 04/03/20 Reason for Consultation: Acute respiratory failure History of Present Illness: The patient is a 64-year-old female, with a history as outlined below, who presented to the emergency department on April 03 after becoming unresponsive. Per documentation, upon EMS arrival to the scene, the patient was noted to be unresponsive and apneic with drug paraphernalia present. On arrival to the emergency department, the patient was noted to be cyanotic and combative. The patient was nontolerant of noninvasive positive pressure ventilatory support. Therefore, the decision was made to emergently intubate the patient. Following intubation, the patient became bradycardic and subsequently went into PEA cardiac arrest, for which she received 1 round of epinephrine, prior to return of spontaneous circulation. Initial laboratory evaluation revealed an elevated white blood cell count to 16,000. Coagulation profile was within normal limits. Arterial blood gas obtained following intubation revealed a pH of 7.3 with a corresponding PCO2 of 45 and PO2 of 68. Chemistry profile was notable for a bicarbonate of 17 and creatinine of 1.54. AST and ALT were increased to 331 and 239, respectively. Alkaline phosphatase was increased to 128. CK was elevated to 1742. Initial troponin was elevated at 0.358 with a BNP of 376. Toxicology screen was positive for opiates, amphetamines, methamphetamine and cannabinoids. Alcohol level was negative. MRSA screen was negative. The patient initially received supplemental IV fluids and was placed on antimicrobials. She was admitted to the medical intensive care unit for further management. Past Medical History Past Medical History (Chronic Problems): Chronic Problems Tobacco use (Chronic) HTN (hypertension) (Chronic) HLD (hyperlipidemia) (Chronic) Anxiety and depression (Chronic) Opiate abuse, continuous (Chronic) Alcohol abuse (Chronic) Allergies No Known Allergies Allergy (Verified 01/21/17 17:53) Home Medications: Ambulatory Orders Medication Instructions Recorded Amlodipine [Norvasc] 5 mg PO DAILY #30 tab 01/24/17 Amox/Clavulanate Tablet [Augmentin 875 mg PO Q12H #14 tab 01/24/17 Tablet] Fluoxetine [Prozac] 20 mg PO DAILY #30 cap 01/24/17 Folic Acid 1 mg PO DAILY@0800 #30 tab 01/24/17 Levothyroxine [Synthroid] 25 mcg PO DAILY@0600 #30 tab 01/24/17 Metoprolol Tartrate [Lopressor 50 mg PO BID #90 tab 01/24/17 (beta esha)] Nicotine [Nicoderm Cq (PBKC)] 21 mg TRANSDERM. DAILY #42 patch 01/24/17 Potassium Chloride Oral Tablet 20 meq PO DAILY #30 tab 01/24/17 [K-Dur] Thiamine Hydrochloride [Vitamin B1] 100 mg PO DAILYCM #30 tab 01/24/17 Surgical History: - - History of prior shoulder surgery, unclear for placement or arthroscopic per discussion with daughter, tailbone surgery, tonsillectomy. 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 Smoking Status: Current every day smoker Tobacco Use: Cigarettes Alcohol: Heavy - Per daughter report patient intake of at least 6 pack of beer daily. Drugs: - - Patient with reportedly OPD abuse but unclear specific history of usage, EMS commented on methamphetamines at scene, urine drug screen with positive opiates, amphetamine, methamphetamine, cannabis. - *Family History Maternal History Items: Hypertension Paternal History Items: Hypertension Review of Systems Unable to obtain accurate/complete ROS d/t: Due to current intubation and mechanical ventilation status Patient Problems: Active and Suspected Problems Sepsis (Acute) Respiratory failure with hypoxia and hypercapnia (Acute) Pneumonia (Acute) Flash pulmonary edema (Acute) Opiate overdose (Acute) Cardiac arrest (Acute) CORNELIUS (acute kidney injury) (Acute) Elevated LFTs (Acute) Objective: The patient's most recent lab work, culture data and imaging studies have all been personally reviewed. Strep pneumoniae urinary antigen was positive. Respiratory viral panel was negative. Blood and sputum cultures are pending. - Physical Exam Vitals/I&O's: Vital Signs Temp Pulse Resp BP Pulse Ox 101.5 F H 93 16 166/87 H 100 04/03/20 05:00 04/03/20 05:11 04/03/20 05:11 04/03/20 05:00 04/03/20 05:11 Oxygen Delivery Method Mechanical Ventilator Weight: 135 lb 0.883 oz Body Mass Index (BMI) 26.4 Finger Stick Blood Glucose 77 Intake and Output for Last 24 Hours 04/01/20 04/02/20 04/03/20 23:59 23:59 23:59 Intake Total 1214.41 / 1214.41 Output Total 2100 / 2100 Balance -885.59 / -885.59 General: - - Intubated, sedated and mechanically ventilated. No ventilator dyssynchrony noted. HEENT: Atraumatic, PERRLA, Normocephalic Oral: No Gingival or Mucosal Lesions/ Ulcerations, - - Endotracheal and OG tubes in place Neck: Supple, No Nodes, Trachea Midline Lungs: No rhonchi, No wheeze, No rales, Diminished Cardiovascular: Regular rate, Regular Rhythm Abdomen: Bowel Sounds Present, Soft, Non Tender Extremities: No clubbing, No cyanosis, No edema Skin: No breakdown Musculoskeletal: No Muscle Wasting Lymphatic: No Cervical, Supraclavicular, or Inguinal Adenopathy Neurological: - - No focal neurological deficits. Currently sedated on the ventilator. Labs (Last 48 Hours) 04/03/20 04/03/20 04/03/20 00:08 00:10 00:10 WBC 20.2 H RBC 4.81 Hgb 15.5 H Hct 50.4 H MCV 104.8 H MCH 32.2 H MCHC 30.8 L RDW Std Deviation 56.0 H RDW Coeff of Josue 14.2 Plt Count 323 MPV 9.8 Immature Gran % (Auto) 1.100 H Neut % (Auto) 77.4 H Lymph % (Auto) 14.9 L Smyth % (Auto) 5.8 Eos % (Auto) 0.3 Baso % (Auto) 0.5 Absolute Neuts (auto) 15.6 H Absolute Lymphs (auto) 3.00 Nucleated RBC % 0 PT INR Specimen Type Sample Site pH Bicarbonate Actual Total CO2 Base Excess O2 Saturation O2 % ABG pCO2 ABG pO2 Michael Test Respiration Rate O2 Delivery Device Vent Mode Tidal Volume POC PEEP Sodium 142 Potassium 4.1 Chloride 111 H Carbon Dioxide 24.0 Anion Gap 7 BUN 41 H Creatinine 1.62 H Estim Creat Clear Calc 28.11 Est GFR (MDRD) Af Amer 41 L Est GFR (MDRD) Non-Af 34 L BUN/Creatinine Ratio 25.3 H Glucose 136 H Lactic Acid Calcium 8.9 Phosphorus Magnesium Total Bilirubin 0.40 AST 302 H ALT 221 H Alkaline Phosphatase 129 H Total Creatine Kinase Troponin I 0.112 H B-Natriuretic Peptide Total Protein 7.4 Albumin 3.7 Globulin 3.7 Albumin/Globulin Ratio 1.0 Triglycerides Cholesterol LDL Cholesterol VLDL Cholesterol HDL Cholesterol Lipase 59 L Urine Color Urine Clarity Urine pH Ur Specific [place] Urine Protein Urine Glucose (UA) Urine Ketones Urine Occult Blood Urine Nitrite Urine Bilirubin Urine Urobilinogen Ur Leukocyte Esterase Urine RBC Urine WBC Ur Squamous Epith Cells Urine Bacteria Urine Mucus Urine Opiates Screen POSITIVE H Urine Methadone Screen NEGATIVE Ur Barbiturates Screen NEGATIVE Ur Phencyclidine Scrn NEGATIVE Ur Amphetamines Screen POSITIVE H U Methamphetamin-MDMA POSITIVE H U Benzodiazepines Scrn NEGATIVE Urine Cocaine Screen NEGATIVE U Cannabinoids Screen POSITIVE H Ur Drug Screen Comment Ethyl Alcohol Hep Bs Antigen Hep Bs Antibody Hepatitis C Antibody HIV 1&2 Antibody MRSA (PCR) 04/03/20 04/03/20 04/03/20 00:10 00:10 00:10 WBC RBC Hgb Hct MCV MCH MCHC RDW Std Deviation RDW Coeff of Josue Plt Count MPV Immature Gran % (Auto) Neut % (Auto) Lymph % (Auto) Smyth % (Auto) Eos % (Auto) Baso % (Auto) Absolute Neuts (auto) Absolute Lymphs (auto) Nucleated RBC % PT INR Specimen Type Sample Site pH Bicarbonate Actual Total CO2 Base Excess O2 Saturation O2 % ABG pCO2 ABG pO2 Michael Test Respiration Rate O2 Delivery Device Vent Mode Tidal Volume POC PEEP Sodium Potassium Chloride Carbon Dioxide Anion Gap BUN Creatinine Estim Creat Clear Calc Est GFR (MDRD) Af Amer Est GFR (MDRD) Non-Af BUN/Creatinine Ratio Glucose Lactic Acid 1.8 Calcium Phosphorus Magnesium Total Bilirubin AST ALT Alkaline Phosphatase Total Creatine Kinase Troponin I B-Natriuretic Peptide 376.8 H Total Protein Albumin Globulin Albumin/Globulin Ratio Triglycerides Cholesterol LDL Cholesterol VLDL Cholesterol HDL Cholesterol Lipase Urine Color Urine Clarity Urine pH Ur Specific [place] Urine Protein Urine Glucose (UA) Urine Ketones Urine Occult Blood Urine Nitrite Urine Bilirubin Urine Urobilinogen Ur Leukocyte Esterase Urine RBC Urine WBC Ur Squamous Epith Cells Urine Bacteria Urine Mucus Urine Opiates Screen Urine Methadone Screen Ur Barbiturates Screen Ur Phencyclidine Scrn Ur Amphetamines Screen U Methamphetamin-MDMA U Benzodiazepines Scrn Urine Cocaine Screen U Cannabinoids Screen Ur Drug Screen Comment Ethyl Alcohol < 3.0 Hep Bs Antigen Hep Bs Antibody Hepatitis C Antibody HIV 1&2 Antibody MRSA (PCR) 04/03/20 04/03/20 04/03/20 00:10 00:10 00:10 WBC RBC Hgb Hct MCV MCH MCHC RDW Std Deviation RDW Coeff of Josue Plt Count MPV Immature Gran % (Auto) Neut % (Auto) Lymph % (Auto) Smyth % (Auto) Eos % (Auto) Baso % (Auto) Absolute Neuts (auto) Absolute Lymphs (auto) Nucleated RBC % PT INR Specimen Type Sample Site pH Bicarbonate Actual Total CO2 Base Excess O2 Saturation O2 % ABG pCO2 ABG pO2 Michael Test Respiration Rate O2 Delivery Device Vent Mode Tidal Volume POC PEEP Sodium Potassium Chloride Carbon Dioxide Anion Gap BUN Creatinine Estim Creat Clear Calc Est GFR (MDRD) Af Amer Est GFR (MDRD) Non-Af BUN/Creatinine Ratio Glucose Lactic Acid Calcium Phosphorus 5.7 H Magnesium 2.4 Total Bilirubin AST ALT Alkaline Phosphatase Total Creatine Kinase Troponin I B-Natriuretic Peptide Total Protein Albumin Globulin Albumin/Globulin Ratio Triglycerides Cholesterol LDL Cholesterol VLDL Cholesterol HDL Cholesterol Lipase Urine Color Yellow Urine Clarity Clear Urine pH 6.0 Ur Specific [place] 1.020 Urine Protein 100 H Urine Glucose (UA) Normal Urine Ketones Negative Urine Occult Blood 25 H Urine Nitrite Negative Urine Bilirubin Negative Urine Urobilinogen Normal Ur Leukocyte Esterase Negative Urine RBC 0-5 SEEN Urine WBC 0 SEEN Ur Squamous Epith Cells 0 SEEN Urine Bacteria 0 SEEN Urine Mucus 0 SEEN Urine Opiates Screen Urine Methadone Screen Ur Barbiturates Screen Ur Phencyclidine Scrn Ur Amphetamines Screen U Methamphetamin-MDMA U Benzodiazepines Scrn Urine Cocaine Screen U Cannabinoids Screen Ur Drug Screen Comment Ethyl Alcohol Hep Bs Antigen Non-Reactive Hep Bs Antibody Non-Reactive Hepatitis C Antibody Non-Reactive HIV 1&2 Antibody Non-Reactive MRSA (PCR) 04/03/20 04/03/20 04/03/20 00:16 00:17 02:45 WBC RBC Hgb Hct MCV MCH MCHC RDW Std Deviation RDW Coeff of Josue Plt Count MPV Immature Gran % (Auto) Neut % (Auto) Lymph % (Auto) Smyth % (Auto) Eos % (Auto) Baso % (Auto) Absolute Neuts (auto) Absolute Lymphs (auto) Nucleated RBC % PT 14.3 INR 1.2 Specimen Type ART Sample Site R Radial pH 7.08 L* Bicarbonate Actual 23.5 Total CO2 26 Base Excess -6 L O2 Saturation 99 O2 % 100 ABG pCO2 78.7 H* ABG pO2 197 H Michael Test Respiration Rate 14 O2 Delivery Device Adult Vent Vent Mode AC Tidal Volume 450 POC PEEP 5 Sodium Potassium Chloride Carbon Dioxide Anion Gap BUN Creatinine Estim Creat Clear Calc Est GFR (MDRD) Af Amer Est GFR (MDRD) Non-Af BUN/Creatinine Ratio Glucose Lactic Acid Calcium Phosphorus Magnesium Total Bilirubin AST ALT Alkaline Phosphatase Total Creatine Kinase Troponin I B-Natriuretic Peptide Total Protein Albumin Globulin Albumin/Globulin Ratio Triglycerides Cholesterol LDL Cholesterol VLDL Cholesterol HDL Cholesterol Lipase Urine Color Urine Clarity Urine pH Ur Specific [place] Urine Protein Urine Glucose (UA) Urine Ketones Urine Occult Blood Urine Nitrite Urine Bilirubin Urine Urobilinogen Ur Leukocyte Esterase Urine RBC Urine WBC Ur Squamous Epith Cells Urine Bacteria Urine Mucus Urine Opiates Screen Urine Methadone Screen Ur Barbiturates Screen Ur Phencyclidine Scrn Ur Amphetamines Screen U Methamphetamin-MDMA U Benzodiazepines Scrn Urine Cocaine Screen U Cannabinoids Screen Ur Drug Screen Comment Ethyl Alcohol Hep Bs Antigen Hep Bs Antibody Hepatitis C Antibody HIV 1&2 Antibody MRSA (PCR) Negative 04/03/20 04/03/20 04/03/20 02:58 03:00 03:00 WBC 15.9 H RBC 4.76 Hgb 15.6 H Hct 50.8 H MCV 106.7 H MCH 32.8 H MCHC 30.7 L RDW Std Deviation 57.1 H RDW Coeff of Josue 14.4 Plt Count 215 MPV 9.8 Immature Gran % (Auto) 0.400 Neut % (Auto) 91.6 H Lymph % (Auto) 3.3 L Smyth % (Auto) 4.5 Eos % (Auto) 0.0 Baso % (Auto) 0.2 Absolute Neuts (auto) 14.5 H Absolute Lymphs (auto) 0.53 L Nucleated RBC % 0 PT INR Specimen Type ART Sample Site R Radial pH 7.30 L Bicarbonate Actual 22.2 Total CO2 24 Base Excess -4 L O2 Saturation 91 L O2 % 70 ABG pCO2 45.3 H ABG pO2 68 L Michael Test Positive Respiration Rate 16 O2 Delivery Device Adult Vent Vent Mode AC Tidal Volume 500 POC PEEP 5 Sodium 141 Potassium 4.3 Chloride 112 H Carbon Dioxide 17.0 L Anion Gap 12 BUN 41 H Creatinine 1.54 H Estim Creat Clear Calc 26.86 Est GFR (MDRD) Af Amer 44 L Est GFR (MDRD) Non-Af 36 L BUN/Creatinine Ratio 26.6 H Glucose 89 Lactic Acid Calcium 9.7 Phosphorus Magnesium Total Bilirubin 0.80 AST 331 H ALT 239 H Alkaline Phosphatase 128 H Total Creatine Kinase Troponin I B-Natriuretic Peptide Total Protein 7.6 Albumin 3.6 Globulin 4.0 Albumin/Globulin Ratio 0.9 Triglycerides 114 Cholesterol 164 LDL Cholesterol 75 VLDL Cholesterol 23 HDL Cholesterol 66 Lipase Urine Color Urine Clarity Urine pH Ur Specific [place] Urine Protein Urine Glucose (UA) Urine Ketones Urine Occult Blood Urine Nitrite Urine Bilirubin Urine Urobilinogen Ur Leukocyte Esterase Urine RBC Urine WBC Ur Squamous Epith Cells Urine Bacteria Urine Mucus Urine Opiates Screen Urine Methadone Screen Ur Barbiturates Screen Ur Phencyclidine Scrn Ur Amphetamines Screen U Methamphetamin-MDMA U Benzodiazepines Scrn Urine Cocaine Screen U Cannabinoids Screen Ur Drug Screen Comment Ethyl Alcohol Hep Bs Antigen Hep Bs Antibody Hepatitis C Antibody HIV 1&2 Antibody MRSA (PCR) 04/03/20 04/03/20 03:00 03:00 WBC RBC Hgb Hct MCV MCH MCHC RDW Std Deviation RDW Coeff of Josue Plt Count MPV Immature Gran % (Auto) Neut % (Auto) Lymph % (Auto) Smyth % (Auto) Eos % (Auto) Baso % (Auto) Absolute Neuts (auto) Absolute Lymphs (auto) Nucleated RBC % PT INR Specimen Type Sample Site pH Bicarbonate Actual Total CO2 Base Excess O2 Saturation O2 % ABG pCO2 ABG pO2 Michael Test Respiration Rate O2 Delivery Device Vent Mode Tidal Volume POC PEEP Sodium Potassium Chloride Carbon Dioxide Anion Gap BUN Creatinine Estim Creat Clear Calc Est GFR (MDRD) Af Amer Est GFR (MDRD) Non-Af BUN/Creatinine Ratio Glucose Lactic Acid Calcium Phosphorus Magnesium Total Bilirubin AST ALT Alkaline Phosphatase Total Creatine Kinase 1742 H Troponin I 0.358 H B-Natriuretic Peptide Total Protein Albumin Globulin Albumin/Globulin Ratio Triglycerides 110 Cholesterol LDL Cholesterol VLDL Cholesterol HDL Cholesterol Lipase Urine Color Urine Clarity Urine pH Ur Specific [place] Urine Protein Urine Glucose (UA) Urine Ketones Urine Occult Blood Urine Nitrite Urine Bilirubin Urine Urobilinogen Ur Leukocyte Esterase Urine RBC Urine WBC Ur Squamous Epith Cells Urine Bacteria Urine Mucus Urine Opiates Screen Urine Methadone Screen Ur Barbiturates Screen Ur Phencyclidine Scrn Ur Amphetamines Screen U Methamphetamin-MDMA U Benzodiazepines Scrn Urine Cocaine Screen U Cannabinoids Screen Ur Drug Screen Comment Ethyl Alcohol Hep Bs Antigen Hep Bs Antibody Hepatitis C Antibody HIV 1&2 Antibody MRSA (PCR) Microbiology 04/03/20 02:30 Mucosa - Nose Respiratory Panel (PCR) - Final 04/03/20 00:08 Urine Catheter - Catheter Legionella Antigen - Final 04/03/20 00:08 Urine Catheter - Catheter Streptococcus pneumoniae Antigen (M - Final Streptococcus pneumonia Ag Clinical Impression(s) from Imaging Studies Chest X-Ray 04/03/20 00:00 IMPRESSION: Support tubes in their expected locations. Mild vascular congestion and/or bilateral pneumonia. Electronically Signed: Raad Farrell MD at 1:14 EST , Service support , Brain CT 04/03/20 23:54 IMPRESSION: Normal unenhanced CT scan of the brain. Electronically Signed: Raad Farrell MD at 1:45 EST , Service support , Current Medications Acetaminophen (Acetaminophen 650 Mg/20 Ml Udc) 650 mg GT Q6H PRN PRN PRN Reason: Pain 1-10 or Fever Last Admin: 04/03/20 05:17 Dose: 650 mg Documented by: Albuterol Sulfate (Albuterol 2.5 Mg/3 Ml Vial.Neb.) 2.5 mg INHALATION Q2H PRN PRN PRN Reason: Dyspnea, wheezing Albuterol/Ipratropium (Ipratropium/Albuterol Sulfate 3 Ml Ampul.Neb) 3 ml INHALATION Q4HWA.RT SHARDA Aspirin (Aspirin 81 Mg Tab.Chew) 81 mg PO DAILY@0800 [facility] Chlorhexidine Gluconate (Chlorhexidine 15 Ml) 15 ml PO BID [facility] Enoxaparin Sodium (Enoxaparin 80 Mg/0.8 Ml Syringe) 75 mg SC Q12@0600,1800 [facility] Last Admin: 04/03/20 05:23 Dose: 75 mg Documented by: Famotidine (Famotidine 20 Mg Tablet) 20 mg GT BID SHARDA Fluoxetine HCl (Fluoxetine 20 Mg Capsule) 20 mg PO DAILY [facility] Folic Acid (Folic Acid 1 Mg Tablet) 1 mg PO DAILY@0800 [facility] Stop: 04/05/20 08:01 Furosemide (Furosemide 40 Mg/4 Ml Vial) 40 mg IV BID@1000,1800 [facility] Stop: 04/03/20 18:01 Hydralazine HCl (Hydralazine 20 Mg/Ml Vial) 10 mg IV Q4H PRN PRN PRN Reason: SBP > 160 Fentanyl Citrate 1,000 mcg/ (Sodium Chloride) 100 mls @ 5 mls/hr CONT INF .Q20H [facility]; Protocol Last Admin: 04/03/20 02:35 Dose: Not Given Documented by: Piperacillin Sod/Tazobactam (Sod 3.375 gm/ Sodium Chloride) 50 mls @ 12.5 mls/hr IV Q8 [facility] Last Admin: 04/03/20 05:16 Dose: 12.5 mls/hr Documented by: Propofol (Diprivan) 1,000 mg in 100 mls @ 4.491 mls/hr CONT INF .Q12H [facility]; Protocol Last Titration: 04/03/20 05:15 Dose: 15 mcg/kg/min, 6.7 mls/hr Documented by: Sodium Chloride () 250 mls @ 15 mls/hr IV .[id number] PRN PRN Reason: Saline Flush Last Infusion: 04/03/20 05:17 Dose: 0 mls/hr Documented by: Sodium Chloride () 250 mls @ 15 mls/hr IV .[id number] PRN PRN Reason: Additional IVPB Infusion Levothyroxine Sodium (Levothyroxine 25 Mcg Tablet) 25 mcg PO DAILY@0600 [facility] Last Admin: 04/03/20 05:23 Dose: 25 mcg Documented by: Lorazepam (Lorazepam 1 Mg Tablet) 2 mg PO Q2H PRN PRN; Protocol PRN Reason: CIWA score > 8 but <15 Lorazepam (Lorazepam 1 Mg Tablet) 2 mg PO UD PRN; Protocol PRN Reason: CIWA score >/=15. Lorazepam (Lorazepam 2 Mg/Ml Syringe) 2 mg IV Q2H PRN PRN; Protocol PRN Reason: CIWA score > 8 but <15 Lorazepam (Lorazepam 2 Mg/Ml Syringe) 2 mg IV UD PRN; Protocol PRN Reason: CIWA score >/=15. Multivitamins/Minerals (Multivitamins,Ther W-Minerals Tablet) [facility] Nicotine (Nicotine 21 Mg Patch) 21 mg TD DAILY [facility] Sodium Chloride (Sodium Cl For Inhalation 15 Ml Vial.Neb.) 5 ml INHALATION Q5M PRN PRN Reason: Suctioning Sodium Chloride (0.9% Saline Lock 10 Ml Syringe) 10 - 40 ml IV UD PRN PRN Reason: SALINE FLUSH Thiamine HCl (Thiamine Hydrochloride 100 Mg Tablet) 100 mg PO BIDCM [facility] Stop: 04/05/20 17:01 Assessment/Plan Active and Suspected Problems Sepsis (Acute) Respiratory failure with hypoxia and hypercapnia (Acute) Pneumonia (Acute) Flash pulmonary edema (Acute) Opiate overdose (Acute) Cardiac arrest (Acute) CORNELIUS (acute kidney injury) (Acute) Elevated LFTs (Acute) RECOMMENDATIONS: 1. Continue patient on assist control mode of mechanical ventilation and wean FiO2 to maintain saturations at or above 90%. 2. Continue propofol and fentanyl for sedation. Goal to maintain a RASS of -1 to 1. 3. Continue scheduled bronchodilator therapy. 4. Discontinue CIWA monitoring while the patient is intubated. 5. Okay to start tube feeds today from my perspective. 6. Continue empiric antimicrobials. IMPRESSIONS: 1. Acute combined respiratory failure Most likely secondary to acute illicit drug ingestion coupled with possible aspiration/pneumococcal pneumonia. Low suspicion for coronavirus. The patient will be continued on invasive mechanical ventilatory support, with plans to wean FiO2 and PEEP as tolerated to maintain saturations at or above 90%. The patient will be continued on empiric antimicrobials, pending finalized infectious work-up. Continue propofol and fentanyl for sedation. Okay from my perspective to start tube feeds today. 2. Encephalopathy As above, the patient's initial presenting encephalopathy was likely secondary to acute illicit drug intoxication. In addition, the patient reportedly drinks a significant amount of alcohol on a daily basis. CT head was unremarkable. Continue to provide supportive measures as noted above. 3. Acute kidney injury Most likely prerenal in etiology. Continue to monitor urine output for now. No current indication for renal replacement therapy. 4. Indeterminate troponin elevation Likely secondary to acute presentation coupled with transient PEA arrest. Echocardiogram is currently pending. 5. Transaminitis Again, likely secondary to acute presentation and history of polysubstance/alcohol abuse. Hepatitis panel was unremarkable. We will continue to monitor for now. 6. History of polysubstance dependency The patient did have a markedly positive toxicology screen and reportedly has a history of alcoholism as well. Anticipate acute withdrawal symptoms within the next 24 to 48 hours. 7. Anxiety/hypertension/hypothyroidism Complicates care, management, recovery and prognosis. Continue home medications as indicated. TIME: 42 minutes of critical care time, independent of procedures, was spent addressing the patient's acute combined respiratory failure, encephalopathy, acute kidney injury, troponin elevation, transaminitis, history of polysubstance dependency, review of all data and collaboration with the care team. [phone]) [phone] [id number] Critical care first hour
--- NOTE | 2020-04-03 05:55 | RAD_ITS ---
STUDY: X-RAY CHEST REASON FOR EXAM: Female, 64 years old. Dyspnea, cough. Overdose. Intubated. TECHNIQUE: AP portable chest. COMPARISON: April 03, 2020 at 12:27 AM. FINDINGS: Endotracheal tube tip 3.9 cm above the homer. Enteric tube looped in the stomach with the tip directed medially in the region of the gastric cardia. Decreasing lung opacities suggestive of resolving vascular congestion. No effusions. No focal areas of consolidation. No pneumothorax. Normal size heart. Normal mediastinum and santiago. Normal visualized pulmonary arteries. Normal visualized aortic arch and descending thoracic aorta. Normal visualized thoracic spine. Normal visualized ribs, clavicles, and shoulders. There is no demonstrated abnormality of the visualized soft tissue structures of the upper abdomen. RAD/Chest 1 View (Portable) IMPRESSION: Resolving vascular congestion. Enteric tube tip at the gastric cardia. Consider repositioning tube. Endotracheal tube in its expected location. Electronically Signed: Raad Farrell MD at 6:51 EST , Service support ,
--- NOTE | 2020-04-03 05:55 | EKG12_ITS ---
Test Reason : AM EKG Blood Pressure : / mmHG Vent. Rate : 092 BPM Atrial Rate : 092 BPM P-R Int : 146 ms QRS Dur : 084 ms QT Int : 390 ms P-R-T Axes : 037 077 083 degrees QTc Int : 482 ms Normal sinus rhythm Normal ECG When compared with ECG of 21-JAN-2017 20:49, Questionable change in QRS axis Nonspecific T wave abnormality now evident in Lateral leads Confirmed by PHIL FARRAR, MICKI ([id number]), editor managing director ROBERT BA ([id number]) on 04/03/2020 12:56:19 P M Referred By: SHAILESH Confirmed By:SEVERO VILLARREAL MD
[2020-04-03] MEDS: Aspirin 81 MG TAB.CHEW PO (09:54)
[2020-04-03] MEDS: Thiamine Hydrochloride 100 MG Tablet PO (09:54)
[2020-04-03] MEDS: Folic Acid 1 MG Tablet PO (09:54)
[2020-04-03] MEDS: Famotidine 20 MG Tablet GT (09:54)
[2020-04-03] MEDS: FLUoxetine 20 MG Capsule PO (09:57)
--- NOTE | 2020-04-03 10:09 | PCM.NTREPORT ---
Nutrition Therapy Report - History Nutrition Services has been consulted to:: Manage enteral nutrition Current diet / nutrition support order:: NPO - Anthropometric Measurements Height:: 5 ft Weight:: 61.26 kg Body Mass Index (BMI):: 26.4 - Relevant Labs Relevant Labs:: WBC 15.9 K/mm3 (4.4-11.0) H 04/03/20 03:00 Hgb 15.6 g/dL (12.0-15.0) H 04/03/20 03:00 Hct 50.8 % (37-47) H 04/03/20 03:00 MCV 106.7 fL (81-99) H 04/03/20 03:00 MCH 32.8 pg (27.0-32.0) H 04/03/20 03:00 MCHC 30.7 g/dL (32-36) L 04/03/20 03:00 RDW Std Deviation 57.1 fl (35.1-43.9) H 04/03/20 03:00 Immature Gran % (Auto) 1.100 % (0.0-0.9) H 04/03/20 00:10 Neut % (Auto) 91.6 % (47-70) H 04/03/20 03:00 Lymph % (Auto) 3.3 % (19-41) L 04/03/20 03:00 Absolute Neuts (auto) 14.5 X10^3/uL (2.0-7.7) H 04/03/20 03:00 Absolute Lymphs (auto) 0.53 X10^3/uL (0.83-4.51) L 04/03/20 03:00 Chloride 112 mmol/L (98-107) H 04/03/20 03:00 Carbon Dioxide 17.0 mmol/L (21.0-32.0) L 04/03/20 03:00 BUN 41 mg/dL (7-18) H 04/03/20 03:00 Creatinine 1.54 mg/dL (0.55-1.02) H 04/03/20 03:00 Est GFR (MDRD) Af Amer 44 mL/min (>60) L 04/03/20 03:00 Est GFR (MDRD) Non-Af 36 mL/min (>60) L 04/03/20 03:00 BUN/Creatinine Ratio 26.6 RATIO (10-20) H 04/03/20 03:00 Glucose 136 mg/dL (74-106) H 04/03/20 00:10 Phosphorus 5.7 mg/dL (2.5-4.9) H 04/03/20 00:10 AST 331 U/L (15-37) H 04/03/20 03:00 ALT 239 U/L (13-56) H 04/03/20 03:00 Alkaline Phosphatase 128 U/L (45-117) H 04/03/20 03:00 Total Creatine Kinase 1742 U/L (26-192) H 04/03/20 03:00 Troponin I 0.869 ng/mL (<0.045) H* 04/03/20 06:10 B-Natriuretic Peptide 376.8 pg/mL (0-100) H 04/03/20 00:10 Lipase 59 U/L (73-393) L 04/03/20 00:10 - Assessment Food / Nutrition-Related History:: Currently intubated. Information gathered from EMR and ICU rounds. Pt unable to answer nutrition screening questions upon admission. No recent wt hx available in EMR. Per rounds, irene for enteral nutrition support this date. - Nutrition Diagnosis Problem / Etiology / Signs & Symptoms (PES):: inadequate oral intake related to resp. failure r/t resp. failure/mechanical intubation as evidenced by inability to consume sufficient engery via PO diet Evidence of Malnutrition Exists:: No - Nutrition Intervention Nutrition Prescription:: 4669-1634 calories/day (RMRx1.3). 90-122 g protein (1.5-2 g/kg). 1600mL fluid/day (1mL/calorie) - Food / Nutrient Delivery Interventions Summary of nutrition intervention:: will order enteral nutrition, NPO diet while intubated Nutrition support ordered as / adjusted to:: Vital AF 1.2 via OGT at goal rate of 55mL/hour w/ 90mL H2O flush every 4 hours to provide 1584 calories, 99 g protein, and 1610mL fluid/day. Would start at 25mL/hour and increase by 10mL every 8-12 hours as tolerated until goal rate achieved. - MNT Monitoring Further MNT monitoring and evaluation required?: Yes MNT Follow-up in:: 1-2 days
[2020-04-03] MEDS: Chlorhexidine 15 ML PO ×2 (10:31→21:26)
--- NOTE | 2020-04-03 10:45 | RAD_ITS ---
STUDY: X-RAY - ABDOMEN/PELVIS REASON FOR EXAM: Female, 64 years old. OG repositioning TECHNIQUE: Single AP view of the abdomen / pelvis. COMPARISON: None. FINDINGS: Enteric tube extends to the left upper quadrant/gastric fundus. No obvious dilated bowel seen on provided images. There is no demonstrated free abdominal air. The visualized liver, spleen and kidneys are grossly normal in size and morphology. Normal soft tissue structures. There is advanced degenerative changes of the shoulders. RAD/Abdomen Single View (Portable) IMPRESSION: Enteric tube extends to the left upper abdomen/gastric fundus. Electronically Signed: Tj Shepherd MD (Brooks) at 11:24 EST , Service support ,
--- NOTE | 2020-04-03 10:59 | CASEMGMT ---
Addendum entered by Elyse Oh 04/03/20 12:57: Social Work SW placed call to pt daughter Brenda Shelton and completed assessment. SW introduced self and role of SW. PCP: Daughter Uncertain Specialists: Daughter Uncertain Preferred Pharmacy: [facility] in [place] Insurance: [employer] Prescription Benefit: yes Living Will/HPOA: Daughter does not believe pt has made LW or HCPOA LNOK: Oldest daughter Yakelin Romero, youngest daughter Brenda Shelton, Significant other Jonathan Casanova Living Arrangements: Pt lives independently in a two story home with significant other. Bed and bath are on the first floor. Transportation: Pt does not drive, which according to dgt, can cause difficulties for pt to get to appointments. When needed, pt significant other drives. DME: Denies using any DME and denies needs. States has the following DME: shower chair, electric wheelchair which was sons. HHC/SNF: none Mental Health: Daughter denies any mental health diagnosis or concerns. 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 Alcohol use: Daughter states that as long as she remembers, pt has drank a 6 pack of beer a day. Dgt stating this is a life long habit and pt is very functional with no alcohol concerns. Drug use: Daughter states pt smokes cigarettes and smokes marijuana. No other drug use to daughter's knowledge. Deisy does state that 27 years ago pt became addicted to pain medication after a surgery and consequently went through a drug rehab program. Per Deisy, pt has had no relapses since that time. Toxicology screen from hospital admission shows patient testing positive for opiates, amphetamines, methamphetamines, and cannabinoids. SW did not inquire about this finding with daughter Deisy at this time. SW will follow up with patient when she is able to communicate. Plan: SW will continue to follow at this time. MEHRDAD will follow up with pt for discharge planning and drug use when she is able to communicate. ISADORA Rick Original Note: Social Work SW participated in interdisciplinary rounds. Pt currently on ventilator. Chart review indicates history of drug use and possible overdose. VM left with pt daughter Deisy requesting return call to complete initial assessment. SW will await return call. ISADORA Rick
--- NOTE | 2020-04-03 11:11 | RAD_ITS ---
STUDY: X-RAY - ABDOMEN/PELVIS REASON FOR EXAM: Female, 64 years old. OG TUBE REPOSITIONING #2 TECHNIQUE: Single AP view of the abdomen / pelvis. COMPARISON: None. FINDINGS: Enteric tube extends to the left upper quadrant/gastric fundus. No obvious dilated bowel seen on provided images. There is no demonstrated free abdominal air. The visualized liver, spleen and kidneys are grossly normal in size and morphology. Normal soft tissue structures. There is advanced degenerative changes of the shoulders. RAD/Abdomen Single View (Portable) IMPRESSION: Enteric tube extends to the left upper abdomen/gastric fundus. Electronically Signed: Tj Shepherd MD (Brooks) at 11:25 EST , Service support ,
--- NOTE | 2020-04-03 11:16 | PCM.CONS.C ---
Reason for Consult Date of Consultation: 04/03/20 Reason for Consultation: Cardiac arrest History of Present Illness: The patient is a 64 year old F [admitted to [facility] ICU after being found unresponsive with drug paraphernalia around her. Her UDS was positive for multiple substances. Patient was in respiratory arrest upon presentation to the ER and was intubated. Immediately after intubation patient briefly became bradycardic and was apparently in PEA. She required CPR for about 2 minutes and then her circulation returned. She has been admitted to the ICU overnight. 2D echo reveals preserved EF and asymmetric septal hypertrophy. Telemetry overnight does not reveal significant arrhythmias. She is intubated and sedated currently and the history is obtained from medical records and other providers. She is not on any pressors. Review of systems: Review of systems cannot be obtained as patient is intubated and sedated.] Past Medical History Allergies/Adverse Reactions: Allergies No Known Allergies Allergy (Verified 01/21/17 17:53) Home Medications: Ambulatory Orders Medication Instructions Recorded Amlodipine [Norvasc] 5 mg PO DAILY #30 tab 01/24/17 Amox/Clavulanate Tablet [Augmentin 875 mg PO Q12H #14 tab 01/24/17 Tablet] Fluoxetine [Prozac] 20 mg PO DAILY #30 cap 01/24/17 Folic Acid 1 mg PO DAILY@0800 #30 tab 01/24/17 Levothyroxine [Synthroid] 25 mcg PO DAILY@0600 #30 tab 01/24/17 Metoprolol Tartrate [Lopressor 50 mg PO BID #90 tab 01/24/17 (beta esha)] Nicotine [Nicoderm Cq (PBKC)] 21 mg TRANSDERM. DAILY #42 patch 01/24/17 Potassium Chloride Oral Tablet 20 meq PO DAILY #30 tab 01/24/17 [K-Dur] Thiamine Hydrochloride [Vitamin B1] 100 mg PO DAILYCM #30 tab 01/24/17 Past Medical History (Chronic Problems): Chronic Problems Tobacco use (Chronic) HTN (hypertension) (Chronic) HLD (hyperlipidemia) (Chronic) Anxiety and depression (Chronic) Opiate abuse, continuous (Chronic) Alcohol abuse (Chronic) Surgical History: - - History of prior shoulder surgery, unclear for placement or arthroscopic per discussion with daughter, tailbone surgery, tonsillectomy. 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 Smoking Status: Current every day smoker Tobacco Use: Cigarettes Alcohol: Heavy - Per daughter report patient intake of at least 6 pack of beer daily. Drugs: - - Patient with reportedly OPD abuse but unclear specific history of usage, EMS commented on methamphetamines at scene, urine drug screen with positive opiates, amphetamine, methamphetamine, cannabis. Objective: Vital Signs Temp Pulse Resp BP Pulse Ox 101.1 F H 91 16 136/76 H 97 04/03/20 10:00 04/03/20 10:09 04/03/20 10:09 04/03/20 10:00 04/03/20 10:09 Oxygen Flow Rate (L/min) 40 Oxygen Delivery Method Mechanical Ventilator Weight: 135 lb 0.883 oz Body Mass Index (BMI) 26.4 Finger Stick Blood Glucose 77 Intake and Output for Last 24 Hours 04/01/20 04/02/20 04/03/20 23:59 23:59 23:59 Intake Total 1389.77 / 1389.77 Output Total 2350 / 2350 Balance -960.23 / -960.23 General: - - Intubated, sedated Neck: Supple, No JVD Lungs: - - Coarse breath sounds Cardiovascular: Regular Rhythm Extremities: No edema 04/03/20 00:10: WBC 20.2 H, RBC 4.81, Hgb 15.5 H, Hct 50.4 H, MCV 104.8 H, MCH 32.2 H, MCHC 30.8 L, Plt Count 323, MPV 9.8, Immature Gran % (Auto) 1.100 H, Neut % (Auto) 77.4 H, Lymph % (Auto) 14.9 L, [place] % (Auto) 5.8, Eos % (Auto) 0.3, Baso % (Auto) 0.5, Absolute Neuts (auto) 15.6 H, Nucleated RBC % 0 04/03/20 00:10: Sodium 142, Potassium 4.1, Chloride 111 H, Carbon Dioxide 24.0, Anion Gap 7, BUN 41 H, Creatinine 1.62 H, Est GFR (MDRD) Af Amer 41 L, Est GFR (MDRD) Non-Af 34 L, BUN/Creatinine Ratio 25.3 H, Glucose 136 H, Calcium 8.9, Total Bilirubin 0.40, Troponin I 0.112 H 04/03/20 00:10: Lactic Acid 1.8 04/03/20 00:10: B-Natriuretic Peptide 376.8 H 04/03/20 00:10: Urine Color Yellow, Urine Clarity Clear, Urine pH 6.0, Ur Specific [place] 1.020, Urine Protein 100 H, Urine Glucose (UA) Normal, Urine Ketones Negative, Urine Occult Blood 25 H, Urine Nitrite Negative, Urine Bilirubin Negative, Urine Urobilinogen Normal, Ur Leukocyte Esterase Negative, Urine RBC 0-5 SEEN, Urine WBC 0 SEEN 04/03/20 00:10: Phosphorus 5.7 H, Magnesium 2.4 04/03/20 00:16: PT 14.3, INR 1.2 04/03/20 00:17: pH 7.08 L*, Bicarbonate Actual 23.5, Base Excess -6 L, O2 Saturation 99, ABG pCO2 78.7 H*, ABG pO2 197 H 04/03/20 02:58: pH 7.30 L, Bicarbonate Actual 22.2, Base Excess -4 L, O2 Saturation 91 L, ABG pCO2 45.3 H, ABG pO2 68 L, Michael Test Positive 04/03/20 03:00: WBC 15.9 H, RBC 4.76, Hgb 15.6 H, Hct 50.8 H, MCV 106.7 H, MCH 32.8 H, MCHC 30.7 L, Plt Count 215, MPV 9.8, Immature Gran % (Auto) 0.400, Neut % (Auto) 91.6 H, Lymph % (Auto) 3.3 L, [place] % (Auto) 4.5, Eos % (Auto) 0.0, Baso % (Auto) 0.2, Absolute Neuts (auto) 14.5 H, Nucleated RBC % 0 04/03/20 03:00: Sodium 141, Potassium 4.3, Chloride 112 H, Carbon Dioxide 17.0 L, Anion Gap 12, BUN 41 H, Creatinine 1.54 H, Est GFR (MDRD) Af Amer 44 L, Est GFR (MDRD) Non-Af 36 L, BUN/Creatinine Ratio 26.6 H, Glucose 89, Calcium 9.7, Total Bilirubin 0.80, Triglycerides 114, Cholesterol 164, LDL Cholesterol 75, VLDL Cholesterol 23, HDL Cholesterol 66 04/03/20 03:00: Triglycerides 110 04/03/20 03:00: Troponin I 0.358 H 04/03/20 06:10: Troponin I 0.869 H* Rhythm: EKG: ECHO: Stress Test: Cardiac Cath: PCI: CT Surgery: Holter monitor: EPS: PPM: CXR: Chest CT Scan: Assessment/Plan 1. Cardiac arrest: Appears to be related to drug overdose, hypoxia etc. No further cardiac work-up required at this time. Continue telemetry monitoring. If her clinical situation changes then we can consider further work-up. 2. Asymmetric septal hypertrophy: Patient can follow-up with Dr. Moe or primary care physician for this. 3. Elevated troponin: Likely related to respiratory arrest due to drug overdose. If patient has anginal symptoms then we can consider further work-up at that time. At this time she does not need any work-up or specific treatment for this.
[2020-04-03] MEDS: Vital AF 1.2 Cal Liquid 1,000 ML 55 ML GT (11:17)
--- NOTE | 2020-04-03 12:53 | NURSING ---
Patient's daughter, Deisy, given patient's phone.
[2020-04-03] MEDS: Propofol 10MG/Ml 1,000 MG/100 ML Bottle 9 MG CONT INF (13:46)
[2020-04-03] MEDS: Thiamine Hydrochloride 100 MG Tablet GT (17:06)
[2020-04-03] MEDS: 0.9% Saline Lock 10 ML Syringe IV (17:07)
--- NOTE | 2020-04-03 18:13 | PCM.HOSP.N ---
Hospitalist Note Patient was seen and examined briefly today in ICU, she remains on the ventilator at this time, she is able to follow some commands. Patient is being seen by critical care as well as cardiology at this time. I have made no changes in her medical care at this time.
[2020-04-03] MEDS: Senna/Docusate Sodium 1 Tablet 2 TABLET GT (21:26)
--- NOTE | 2020-04-03 22:34 | PCM.HOSP.N ---
Hospitalist Note Lab reported blood culture with gram positive cocci specifically in clusters, currently on zosyn only, will add Vancomycin.
--- NOTE | 2020-04-03 23:54 | CT_ITS ---
STUDY: CT BRAIN WITHOUT CONTRAST REASON FOR EXAM: Female, 64 years old. Unresponsive, narcan was given. Questionable overdose. Confusion. RADIATION DOSAGE (If Supplied By Facility): CTDIvol = ( 44.99 ) mGy, DLP = ( 762.36 ) mGycm TECHNIQUE: Transaxial CT imaging of the brain was performed without administration of intravenous contrast material. Individualized dose optimization techniques were used for this CT. COMPARISON: January 21, 2017. FINDINGS: Normal soft tissue structures. Normal calvarium. Normal size ventricles and extra-axial spaces for the patient''s age. Normal white matter tracts of the cerebral hemispheres. Normal basal ganglia and thalami. Normal brainstem. Normal cerebellum. There is no intracranial hemorrhage. There are no findings of an acute ischemic infarction. Normal visualized paranasal sinuses. The patient is intubated. An enteric tube is present. CT/Brain/Head without Contrast IMPRESSION: Normal unenhanced CT scan of the brain. Electronically Signed: Raad Farrell MD at 1:45 EST , Service support ,
[2020-04-04] VITALS (33 sets, daily range): BP systolic 110–165; BP diastolic 58–100; PULSE 80–102; RESP 14–25; TEMP 36.4–37.5; O2SAT 91–98
--- NOTE | 2020-04-04 00:44 | PCM.RX.CS ---
Consult Pharmacy has been consulted to manage selected antiobiotic: Vancomycin Type of Consult: New start Suspected Infection: Sepsis Labs: Sodium 141 mmol/L (136-145) 04/03/20 03:00 Potassium 4.3 mmol/L (3.5-5.1) 04/03/20 03:00 Chloride 112 mmol/L (98-107) H 04/03/20 03:00 Carbon Dioxide 17.0 mmol/L (21.0-32.0) L 04/03/20 03:00 Anion Gap 12 (5-15) 04/03/20 03:00 BUN 41 mg/dL (7-18) H 04/03/20 03:00 Creatinine 1.54 mg/dL (0.55-1.02) H 04/03/20 03:00 Est GFR (MDRD) Af Amer 44 mL/min (>60) L 04/03/20 03:00 Est GFR (MDRD) Non-Af 36 mL/min (>60) L 04/03/20 03:00 BUN/Creatinine Ratio 26.6 RATIO (10-20) H 04/03/20 03:00 Glucose 89 mg/dL (74-106) 04/03/20 03:00 Microbiology: Microbiology 04/03/20 00:10 Blood Culture (Wb) - Neck Blood Culture - Preliminary 04/03/20 02:30 Sputum, Induced/[place] Gram Stain - Final 04/03/20 07:35 Mucosa - Nose SARS-CoV-2 Antigen (Rapid) - Final 04/03/20 02:30 Mucosa - Nose Respiratory Panel (PCR) - Final 04/03/20 00:08 Urine Catheter - Catheter Legionella Antigen - Final 04/03/20 00:08 Urine Catheter - Catheter Streptococcus pneumoniae Antigen (M - Final Streptococcus pneumonia Ag Weight used for dosin.26 kg Estimated Creatinine Clearance: 30.58 Goal Trough: 15-20 mcg/mL Pharmacy Plan for Drug Dosing: Pharmacy Service will continue to monitor and adjust dosing as required. Medications Vancomycin HCl 750 mg/ Sodium (Chloride) 265 mls @ 250 mls/hr IV Q24H SHARDA Vancomycin HCl 1,500 mg/ (Sodium Chloride) 530 mls @ 250 mls/hr IV X1 ONE Stop: 04/04/20 01:07 Last Admin: 04/03/20 23:36 Dose: 250 mls/hr Documented by: Follow-Up Labs: Trough Vancomycin Labs to be done on [date and time ordered]: 04/05 @ 2300
[2020-04-04] MEDS: Propofol 10MG/Ml 1,000 MG/100 ML Bottle 9 MG CONT INF (01:00)
[2020-04-04] MEDS: Levothyroxine 25 MCG TABLET GT (05:08)
[2020-04-04] MEDS: Enoxaparin 30 MG/0.3 ML Syringe SC (05:08)
--- NOTE | 2020-04-04 06:36 | PN_ITS ---
Subjective: The patient was seen and examined at the bedside this morning. Events from the last 24 hours have been reviewed. The patient is currently afebrile, hemodynamically stable and maintaining appropriate oxygen saturations on spontaneous mode of mechanical ventilation with an FiO2 requirement of 30%. There were no overnight issues identified by the nursing staff. Secretions are minimal. The patient has been tolerating tube feeds. She is currently doing well this morning on her spontaneous breathing trial. Objective: The patient's most recent lab work, culture data and imaging studies have all been personally reviewed. Surface echocardiogram revealed normal LV size with severe asymmetric septal hypertrophy, along with evidence of diastolic dysfunction. The RV was mildly dilated with global RV systolic dysfunction and a right ventricular systolic pressure estimated to be 76 mmHg. Strep pneumoniae urinary antigen was positive. Initial blood culture was positive for coag negative staph. Respiratory viral panel was negative. Rapid coronavirus antigen testing was negative. Sputum culture is pending. General: Alert, Cooperative, - - Tolerating spontaneous mode of mechanical ventilation currently. Remains intubated. HEENT: Atraumatic, Normocephalic Oral: No Gingival or Mucosal Lesions/ Ulcerations, - - Endotracheal and OG tubes remain in place. Neck: Supple, No Nodes, Trachea Midline Lungs: No rhonchi, No wheeze, No rales, Diminished Cardiovascular: Regular rate, Regular Rhythm Abdomen: Bowel Sounds Present, Soft, Non Tender Extremities: No clubbing, No cyanosis, No edema Skin: No breakdown Musculoskeletal: No Tenderness to Palpation of Joints or Extremities Lymphatic: No Cervical, Supraclavicular, or Inguinal Adenopathy Neurological: - - No focal neurological deficits. Alert and following commands appropriately. Vital Signs Temp Pulse Resp BP Pulse Ox 99.0 F 94 14 140/68 H 94 04/04/20 06:00 04/04/20 06:00 04/04/20 06:00 04/04/20 06:00 04/04/20 06:00 Oxygen Flow Rate (L/min) 40 Oxygen Delivery Method Mechanical Ventilator Weight: 131 lb Body Mass Index (BMI) 26.4 Finger Stick Blood Glucose 77 Intake and Output for Last 24 Hours 04/02/20 04/03/20 04/04/20 23:59 23:59 23:59 Intake Total 3073.14 / 3083.14 899.90 / 899.90 Output Total 5050 / 5050 450 / 450 Balance -1976.86 / -1965.86 449.90 / 449.90 Labs (Last 48 Hours) 04/03/20 04/03/20 04/03/20 00:08 00:10 00:10 WBC 20.2 H RBC 4.81 Hgb 15.5 H Hct 50.4 H MCV 104.8 H MCH 32.2 H MCHC 30.8 L RDW Std Deviation 56.0 H RDW Coeff of Josue 14.2 Plt Count 323 MPV 9.8 Immature Gran % (Auto) 1.100 H Neut % (Auto) 77.4 H Lymph % (Auto) 14.9 L [place] % (Auto) 5.8 Eos % (Auto) 0.3 Baso % (Auto) 0.5 Absolute Neuts (auto) 15.6 H Absolute Lymphs (auto) 3.00 Nucleated RBC % 0 PT INR Specimen Type Sample Site pH Bicarbonate Actual Total CO2 Base Excess O2 Saturation O2 % ABG pCO2 ABG pO2 Michael Test Respiration Rate O2 Delivery Device Vent Mode Tidal Volume POC PEEP Sodium 142 Potassium 4.1 Chloride 111 H Carbon Dioxide 24.0 Anion Gap 7 BUN 41 H Creatinine 1.62 H Estim Creat Clear Calc 28.11 Est GFR (MDRD) Af Amer 41 L Est GFR (MDRD) Non-Af 34 L BUN/Creatinine Ratio 25.3 H Glucose 136 H Lactic Acid Calcium 8.9 Phosphorus Magnesium Total Bilirubin 0.40 AST 302 H ALT 221 H Alkaline Phosphatase 129 H Total Creatine Kinase Troponin I 0.112 H B-Natriuretic Peptide Total Protein 7.4 Albumin 3.7 Globulin 3.7 Albumin/Globulin Ratio 1.0 Triglycerides Cholesterol LDL Cholesterol VLDL Cholesterol HDL Cholesterol Lipase 59 L Urine Color Urine Clarity Urine pH Ur Specific [place] Urine Protein Urine Glucose (UA) Urine Ketones Urine Occult Blood Urine Nitrite Urine Bilirubin Urine Urobilinogen Ur Leukocyte Esterase Urine RBC Urine WBC Ur Squamous Epith Cells Urine Bacteria Urine Mucus Urine Opiates Screen POSITIVE H Urine Methadone Screen NEGATIVE Ur Barbiturates Screen NEGATIVE Ur Phencyclidine Scrn NEGATIVE Ur Amphetamines Screen POSITIVE H U Methamphetamin-MDMA POSITIVE H U Benzodiazepines Scrn NEGATIVE Urine Cocaine Screen NEGATIVE U Cannabinoids Screen POSITIVE H Ur Drug Screen Comment Ethyl Alcohol Hep Bs Antigen Hep Bs Antibody Hepatitis C Antibody HIV 1&2 Antibody MRSA (PCR) 04/03/20 04/03/20 04/03/20 00:10 00:10 00:10 WBC RBC Hgb Hct MCV MCH MCHC RDW Std Deviation RDW Coeff of Josue Plt Count MPV Immature Gran % (Auto) Neut % (Auto) Lymph % (Auto) [place] % (Auto) Eos % (Auto) Baso % (Auto) Absolute Neuts (auto) Absolute Lymphs (auto) Nucleated RBC % PT INR Specimen Type Sample Site pH Bicarbonate Actual Total CO2 Base Excess O2 Saturation O2 % ABG pCO2 ABG pO2 Michael Test Respiration Rate O2 Delivery Device Vent Mode Tidal Volume POC PEEP Sodium Potassium Chloride Carbon Dioxide Anion Gap BUN Creatinine Estim Creat Clear Calc Est GFR (MDRD) Af Amer Est GFR (MDRD) Non-Af BUN/Creatinine Ratio Glucose Lactic Acid 1.8 Calcium Phosphorus Magnesium Total Bilirubin AST ALT Alkaline Phosphatase Total Creatine Kinase Troponin I B-Natriuretic Peptide 376.8 H Total Protein Albumin Globulin Albumin/Globulin Ratio Triglycerides Cholesterol LDL Cholesterol VLDL Cholesterol HDL Cholesterol Lipase Urine Color Urine Clarity Urine pH Ur Specific [place] Urine Protein Urine Glucose (UA) Urine Ketones Urine Occult Blood Urine Nitrite Urine Bilirubin Urine Urobilinogen Ur Leukocyte Esterase Urine RBC Urine WBC Ur Squamous Epith Cells Urine Bacteria Urine Mucus Urine Opiates Screen Urine Methadone Screen Ur Barbiturates Screen Ur Phencyclidine Scrn Ur Amphetamines Screen U Methamphetamin-MDMA U Benzodiazepines Scrn Urine Cocaine Screen U Cannabinoids Screen Ur Drug Screen Comment Ethyl Alcohol < 3.0 Hep Bs Antigen Hep Bs Antibody Hepatitis C Antibody HIV 1&2 Antibody MRSA (PCR) 04/03/20 04/03/20 04/03/20 00:10 00:10 00:10 WBC RBC Hgb Hct MCV MCH MCHC RDW Std Deviation RDW Coeff of Josue Plt Count MPV Immature Gran % (Auto) Neut % (Auto) Lymph % (Auto) [place] % (Auto) Eos % (Auto) Baso % (Auto) Absolute Neuts (auto) Absolute Lymphs (auto) Nucleated RBC % PT INR Specimen Type Sample Site pH Bicarbonate Actual Total CO2 Base Excess O2 Saturation O2 % ABG pCO2 ABG pO2 Michael Test Respiration Rate O2 Delivery Device Vent Mode Tidal Volume POC PEEP Sodium Potassium Chloride Carbon Dioxide Anion Gap BUN Creatinine Estim Creat Clear Calc Est GFR (MDRD) Af Amer Est GFR (MDRD) Non-Af BUN/Creatinine Ratio Glucose Lactic Acid Calcium Phosphorus 5.7 H Magnesium 2.4 Total Bilirubin AST ALT Alkaline Phosphatase Total Creatine Kinase Troponin I B-Natriuretic Peptide Total Protein Albumin Globulin Albumin/Globulin Ratio Triglycerides Cholesterol LDL Cholesterol VLDL Cholesterol HDL Cholesterol Lipase Urine Color Yellow Urine Clarity Clear Urine pH 6.0 Ur Specific [place] 1.020 Urine Protein 100 H Urine Glucose (UA) Normal Urine Ketones Negative Urine Occult Blood 25 H Urine Nitrite Negative Urine Bilirubin Negative Urine Urobilinogen Normal Ur Leukocyte Esterase Negative Urine RBC 0-5 SEEN Urine WBC 0 SEEN Ur Squamous Epith Cells 0 SEEN Urine Bacteria 0 SEEN Urine Mucus 0 SEEN Urine Opiates Screen Urine Methadone Screen Ur Barbiturates Screen Ur Phencyclidine Scrn Ur Amphetamines Screen U Methamphetamin-MDMA U Benzodiazepines Scrn Urine Cocaine Screen U Cannabinoids Screen Ur Drug Screen Comment Ethyl Alcohol Hep Bs Antigen Non-Reactive Hep Bs Antibody Non-Reactive Hepatitis C Antibody Non-Reactive HIV 1&2 Antibody Non-Reactive MRSA (PCR) 04/03/20 04/03/20 04/03/20 00:16 00:17 02:45 WBC RBC Hgb Hct MCV MCH MCHC RDW Std Deviation RDW Coeff of Josue Plt Count MPV Immature Gran % (Auto) Neut % (Auto) Lymph % (Auto) [place] % (Auto) Eos % (Auto) Baso % (Auto) Absolute Neuts (auto) Absolute Lymphs (auto) Nucleated RBC % PT 14.3 INR 1.2 Specimen Type ART Sample Site R Radial pH 7.08 L* Bicarbonate Actual 23.5 Total CO2 26 Base Excess -6 L O2 Saturation 99 O2 % 100 ABG pCO2 78.7 H* ABG pO2 197 H Michael Test Respiration Rate 14 O2 Delivery Device Adult Vent Vent Mode AC Tidal Volume 450 POC PEEP 5 Sodium Potassium Chloride Carbon Dioxide Anion Gap BUN Creatinine Estim Creat Clear Calc Est GFR (MDRD) Af Amer Est GFR (MDRD) Non-Af BUN/Creatinine Ratio Glucose Lactic Acid Calcium Phosphorus Magnesium Total Bilirubin AST ALT Alkaline Phosphatase Total Creatine Kinase Troponin I B-Natriuretic Peptide Total Protein Albumin Globulin Albumin/Globulin Ratio Triglycerides Cholesterol LDL Cholesterol VLDL Cholesterol HDL Cholesterol Lipase Urine Color Urine Clarity Urine pH Ur Specific [place] Urine Protein Urine Glucose (UA) Urine Ketones Urine Occult Blood Urine Nitrite Urine Bilirubin Urine Urobilinogen Ur Leukocyte Esterase Urine RBC Urine WBC Ur Squamous Epith Cells Urine Bacteria Urine Mucus Urine Opiates Screen Urine Methadone Screen Ur Barbiturates Screen Ur Phencyclidine Scrn Ur Amphetamines Screen U Methamphetamin-MDMA U Benzodiazepines Scrn Urine Cocaine Screen U Cannabinoids Screen Ur Drug Screen Comment Ethyl Alcohol Hep Bs Antigen Hep Bs Antibody Hepatitis C Antibody HIV 1&2 Antibody MRSA (PCR) Negative 04/03/20 04/03/20 04/03/20 02:58 03:00 03:00 WBC 15.9 H RBC 4.76 Hgb 15.6 H Hct 50.8 H MCV 106.7 H MCH 32.8 H MCHC 30.7 L RDW Std Deviation 57.1 H RDW Coeff of Josue 14.4 Plt Count 215 MPV 9.8 Immature Gran % (Auto) 0.400 Neut % (Auto) 91.6 H Lymph % (Auto) 3.3 L [place] % (Auto) 4.5 Eos % (Auto) 0.0 Baso % (Auto) 0.2 Absolute Neuts (auto) 14.5 H Absolute Lymphs (auto) 0.53 L Nucleated RBC % 0 PT INR Specimen Type ART Sample Site R Radial pH 7.30 L Bicarbonate Actual 22.2 Total CO2 24 Base Excess -4 L O2 Saturation 91 L O2 % 70 ABG pCO2 45.3 H ABG pO2 68 L Michael Test Positive Respiration Rate 16 O2 Delivery Device Adult Vent Vent Mode AC Tidal Volume 500 POC PEEP 5 Sodium 141 Potassium 4.3 Chloride 112 H Carbon Dioxide 17.0 L Anion Gap 12 BUN 41 H Creatinine 1.54 H Estim Creat Clear Calc 26.86 Est GFR (MDRD) Af Amer 44 L Est GFR (MDRD) Non-Af 36 L BUN/Creatinine Ratio 26.6 H Glucose 89 Lactic Acid Calcium 9.7 Phosphorus Magnesium Total Bilirubin 0.80 AST 331 H ALT 239 H Alkaline Phosphatase 128 H Total Creatine Kinase Troponin I B-Natriuretic Peptide Total Protein 7.6 Albumin 3.6 Globulin 4.0 Albumin/Globulin Ratio 0.9 Triglycerides 114 Cholesterol 164 LDL Cholesterol 75 VLDL Cholesterol 23 HDL Cholesterol 66 Lipase Urine Color Urine Clarity Urine pH Ur Specific [place] Urine Protein Urine Glucose (UA) Urine Ketones Urine Occult Blood Urine Nitrite Urine Bilirubin Urine Urobilinogen Ur Leukocyte Esterase Urine RBC Urine WBC Ur Squamous Epith Cells Urine Bacteria Urine Mucus Urine Opiates Screen Urine Methadone Screen Ur Barbiturates Screen Ur Phencyclidine Scrn Ur Amphetamines Screen U Methamphetamin-MDMA U Benzodiazepines Scrn Urine Cocaine Screen U Cannabinoids Screen Ur Drug Screen Comment Ethyl Alcohol Hep Bs Antigen Hep Bs Antibody Hepatitis C Antibody HIV 1&2 Antibody MRSA (PCR) 04/03/20 04/03/20 04/03/20 03:00 03:00 06:10 WBC RBC Hgb Hct MCV MCH MCHC RDW Std Deviation RDW Coeff of Josue Plt Count MPV Immature Gran % (Auto) Neut % (Auto) Lymph % (Auto) [place] % (Auto) Eos % (Auto) Baso % (Auto) Absolute Neuts (auto) Absolute Lymphs (auto) Nucleated RBC % PT INR Specimen Type Sample Site pH Bicarbonate Actual Total CO2 Base Excess O2 Saturation O2 % ABG pCO2 ABG pO2 Michael Test Respiration Rate O2 Delivery Device Vent Mode Tidal Volume POC PEEP Sodium Potassium Chloride Carbon Dioxide Anion Gap BUN Creatinine Estim Creat Clear Calc Est GFR (MDRD) Af Amer Est GFR (MDRD) Non-Af BUN/Creatinine Ratio Glucose Lactic Acid Calcium Phosphorus Magnesium Total Bilirubin AST ALT Alkaline Phosphatase Total Creatine Kinase 1742 H Troponin I 0.358 H 0.869 H* B-Natriuretic Peptide Total Protein Albumin Globulin Albumin/Globulin Ratio Triglycerides 110 Cholesterol LDL Cholesterol VLDL Cholesterol HDL Cholesterol Lipase Urine Color Urine Clarity Urine pH Ur Specific [place] Urine Protein Urine Glucose (UA) Urine Ketones Urine Occult Blood Urine Nitrite Urine Bilirubin Urine Urobilinogen Ur Leukocyte Esterase Urine RBC Urine WBC Ur Squamous Epith Cells Urine Bacteria Urine Mucus Urine Opiates Screen Urine Methadone Screen Ur Barbiturates Screen Ur Phencyclidine Scrn Ur Amphetamines Screen U Methamphetamin-MDMA U Benzodiazepines Scrn Urine Cocaine Screen U Cannabinoids Screen Ur Drug Screen Comment Ethyl Alcohol Hep Bs Antigen Hep Bs Antibody Hepatitis C Antibody HIV 1&2 Antibody MRSA (PCR) Microbiology 04/03/20 00:10 Blood Culture (Wb) - Neck Bacteria Detection (PCR) - Preliminary Coag Negative Staph 04/03/20 00:10 Blood Culture (Wb) - Neck Blood Culture - Preliminary 04/03/20 02:30 Sputum, Induced/Lukens Gram Stain - Final 04/03/20 07:35 Mucosa - Nose SARS-CoV-2 Antigen (Rapid) - Final 04/03/20 02:30 Mucosa - Nose Respiratory Panel (PCR) - Final 04/03/20 00:08 Urine Catheter - Catheter Legionella Antigen - Final 04/03/20 00:08 Urine Catheter - Catheter Streptococcus pneumoniae Antigen (M - Final Streptococcus pneumonia Ag Clinical Impression(s) from Imaging Studies Chest X-Ray 04/03/20 00:00 IMPRESSION: Support tubes in their expected locations. Mild vascular congestion and/or bilateral pneumonia. Electronically Signed: Raad Farrell MD at 1:14 EST , Service support , Chest X-Ray 04/03/20 05:55 IMPRESSION: Resolving vascular congestion. Enteric tube tip at the gastric cardia. Consider repositioning tube. Endotracheal tube in its expected location. Electronically Signed: Raad Farrell MD at 6:51 EST , Service support , KUB X-Ray 04/03/20 10:45 IMPRESSION: Enteric tube extends to the left upper abdomen/gastric fundus. Electronically Signed: Tj Shepherd MD ([place]) at 11:24 EST , Service support , KUB X-Ray 04/03/20 11:11 IMPRESSION: Enteric tube extends to the left upper abdomen/gastric fundus. Electronically Signed: Tj Shepherd MD ([place]) at 11:25 EST , Service support , Brain CT 04/03/20 23:54 IMPRESSION: Normal unenhanced CT scan of the brain. Electronically Signed: Raad Farrell MD at 1:45 EST , Service support , Medical Necessity - Tobacco Use Smoking Status: Current every day smoker Tobacco Use: Cigarettes Assessment/Plan All Active Problems Sepsis (Acute) Respiratory failure with hypoxia and hypercapnia (Acute) Pneumonia (Acute) Flash pulmonary edema (Acute) Opiate overdose (Acute) Cardiac arrest (Acute) CORNELIUS (acute kidney injury) (Acute) Elevated LFTs (Acute) RECOMMENDATIONS: 1. Proceed with a trial of extubation this morning. 2. Once extubated, wean supplemental oxygen to maintain saturations at or above 90%. 3. Encourage incentive spirometer use and mobilize patient as tolerated. 4. Perform bedside swallow evaluation and advance diet accordingly. 5. Restart CIWA protocol. 6. Continue antimicrobials. 7. Continue scheduled bronchodilator therapy. IMPRESSIONS: 1. Acute combined respiratory failure Most likely secondary to acute illicit drug ingestion coupled with possible aspiration/pneumococcal pneumonia. Low suspicion for coronavirus. The patient has improved from an oxygenation standpoint. She passed her spontaneous breathing trial this morning and will be extubated accordingly. We will plan to continue antimicrobials to complete treatment course. Continue scheduled bronchodilator therapy. Once extubated, wean supplemental oxygen to maintain saturations at or above 90%. Encourage incentive spirometer use and mobilize patient as tolerated. 2. Encephalopathy Resolved. As above, the patient's initial presenting encephalopathy was likely secondary to acute illicit drug intoxication. In addition, the patient reportedly drinks a significant amount of alcohol on a daily basis. CT head was unremarkable. Continue to provide supportive measures as noted above. 3. Acute kidney injury Most likely prerenal in etiology. Continue to monitor urine output for now. No current indication for renal replacement therapy. 4. Indeterminate troponin elevation Likely secondary to acute presentation coupled with transient PEA arrest. 5. Transaminitis Again, likely secondary to acute presentation and history of polysubstance/alcohol abuse. Hepatitis panel was unremarkable. We will continue to monitor for now. 6. History of polysubstance dependency The patient did have a markedly positive toxicology screen and reportedly has a history of alcoholism as well. Once extubated, will restart CIWA protocol. 7. Anxiety/hypertension/hypothyroidism Complicates care, management, recovery and prognosis. Continue home medications as indicated. TIME: 38 minutes of critical care time, independent of procedures, was spent addressing the patient's acute combined respiratory failure, encephalopathy, acute kidney injury, troponin elevation, transaminitis, history of polysubstance dependency, review of all data and collaboration with the care team. ([id number]) [id number] Critical care first hour
[2020-04-04] MEDS: Ipratropium/Albuterol Sulfate 3 ML AMPUL.NEB INHALATION ×3 (07:08→19:04)
[2020-04-04 08:34] LABS: ALB/GLOB Ratio 0.8 RATIO (0.9-2.4); AST(SGOT) 97 U/L (15-37); Alanine Aminotransfer ALT/SGPT 142 U/L (13-56); Albumin, Serum 3.1 g/dL (3.2-5.0); Alkaline Phosphatase 89 U/L (45-117); Anion Gap 6 (5-15); BUN 49 mg/dL (7-18); BUN/Creat Ratio 30.4 RATIO (10-20); Calcium,Total 9.2 mg/dL (8.5-10.1); Chloride 108 mmol/L (98-107); Creatinine, Serum 1.61 mg/dL (0.55-1.02); EST Glomerular Filtration Rate 34 mL/min (>60); Est Glom Filt Rate - Afr Amer 42 mL/min (>60); Estimated Creatinine Clearance 25.69 ml/min; Globulin 3.9 g/dL (2.2-4.2); Glucose 120 mg/dL (74-106); Potassium 3.6 mmol/L (3.5-5.1); Sodium Level 141 mmol/L (136-145)
[2020-04-04] MEDS: Acetaminophen 325 MG Tablet 650 MG PO ×2 (09:19→15:21)
[2020-04-04] MEDS: Thiamine Hydrochloride 100 MG Tablet GT (09:20)
[2020-04-04] MEDS: Multivitamins,Ther W-Minerals Tablet 1 TABLET GT (09:20)
[2020-04-04] MEDS: Folic Acid 1 MG Tablet GT (09:20)
[2020-04-04] MEDS: Famotidine 20 MG Tablet GT (09:21)
[2020-04-04] MEDS: FLUoxetine 20 MG Capsule GT (09:21)
[2020-04-04] MEDS: Aspirin 81 MG TAB.CHEW GT (09:21)
--- NOTE | 2020-04-04 09:59 | PCM.PN.HOSP ---
Patient Problems: Active and Suspected Problems Sepsis (Acute) Respiratory failure with hypoxia and hypercapnia (Acute) Pneumonia (Acute) Flash pulmonary edema (Acute) Opiate overdose (Acute) Cardiac arrest (Acute) CORNELIUS (acute kidney injury) (Acute) Elevated LFTs (Acute) Reason for Visit: Follow-up for acute combined respiratory failure, encephalopathy, acute kidney injury and bacteremia Objective: Seen and examined Change of attending was done as per request of patient from Dr. Francisco to me. Patient does not want to see Dr. Hung In summary, patient was admitted for acute combined respiratory failure with acute shortness of breath, unresponsive state, pinpoint pupils, severely hypoxic and apneic and drug paraphernalia at the scene found by paramedics.. She was given intranasal Narcan and was intubated in ED. As per patient, her friend, nurse at house told him that her lips are blue and cyanotic. She was intubated after she was not tolerant to NIPPV. Soon after intubation she went into brief period of cardiac arrest, PEA for which she required 1 epinephrine and CPR before ROSC. She is extubated in the morning. U tox positive of opioids, amphetamines, methamphetamines and cannabinoids. She admitted using oral opioids but denies using IV heroine or fentanyl. She is current, respiratory status is stable. Heart rate in the 80s. Complain of mild chest pain due to CPR. Physical exam General: Alert, Oriented x3, Cooperative HEENT: Atraumatic, PERRLA, EOMI, Normocephalic Oral: No Gingival or Mucosal Lesions/ Ulcerations Neck: Supple, No JVD, Negative Carotid Bruits Lungs: Air entry diminished in bilateral lung bases. No crepitation/rhonchi Cardiovascular: Mild tenderness over right upper and midsternal chest. Regular rate, Regular Rhythm, Normal S1, Normal S2, No murmurs Abdomen: Bowel Sounds Present, Soft, Non Tender, Non-Distended : No renal angle tenderness. No suprapubic tenderness. Extremities: No edema, Capillary Refill Less than 3 Seconds Skin: No rashes, No breakdown Musculoskeletal: No Tenderness to Palpation of Joints or Extremities Neurological: Cranial nerves II-XII grossly intact, Deep Tendon Reflexes 2+/4 and Symmetrical, Neuro grossly intact Psych/Mental Status: Normal Affect, Appropriate. Vitals/I&O's: Vital Signs Temp Pulse Resp BP Pulse Ox 99 F 80 16 121/58 H 98 04/04/20 08:00 04/04/20 09:00 04/04/20 09:00 04/04/20 09:00 04/04/20 09:00 Oxygen Flow Rate (L/min) 2 Oxygen Delivery Method Nasal Cannula Weight: 131 lb Body Mass Index (BMI) 26.4 Finger Stick Blood Glucose 77 Intake and Output for Last 24 Hours 04/02/20 04/03/20 04/04/20 23:59 23:59 23:59 Intake Total 3073.14 / 3083.14 949.90 / 949.90 Output Total 5050 / 5050 450 / 450 Balance -1976.86 / -1966.86 499.90 / 499.90 Microbiology Past 72 Hours 04/03/20 00:10 Blood Culture (Wb) - Neck Bacteria Detection (PCR) - Final Coag Negative Staph 04/03/20 00:10 Blood Culture (Wb) - Neck Blood Culture - Preliminary Coag Negative Staph 04/03/20 02:30 Sputum, Induced/Lukens Gram Stain - Final 04/03/20 07:35 Mucosa - Nose SARS-CoV-2 Antigen (Rapid) - Final 04/03/20 02:30 Mucosa - Nose Respiratory Panel (PCR) - Final 04/03/20 00:08 Urine Catheter - Catheter Legionella Antigen - Final 04/03/20 00:08 Urine Catheter - Catheter Streptococcus pneumoniae Antigen (M - Final Streptococcus pneumonia Ag Laboratory Results 04/04/20 07:57: WBC Cancelled, Corrected WBC Cancelled, RBC Cancelled, Hgb Cancelled, Hct Cancelled, MCV Cancelled, MCH Cancelled, MCHC Cancelled, RDW Std Deviation Cancelled, RDW Coeff of Josue Cancelled, Plt Count Cancelled, MPV Cancelled, Immature Gran % (Auto) Cancelled, Neut % (Auto) Cancelled, Lymph % (Auto) Cancelled, [place] % (Auto) Cancelled, Eos % (Auto) Cancelled, Baso % (Auto) Cancelled, Absolute Neuts (auto) Cancelled, Absolute Lymphs (auto) Cancelled, Total Counted Cancelled, Neutrophils % (Manual) Cancelled, Band Neutrophils % Cancelled, Lymphocytes % (Manual) Cancelled, Monocytes % (Manual) Cancelled, Eosinophils % (Manual) Cancelled, Basophils % (Manual) Cancelled, Metamyelocytes % Cancelled, Myelocytes % Cancelled, Promyelocytes % Cancelled, Blast Cells % Cancelled, Plasma Cell % (Manual) Cancelled, Other Cells % Cancelled, Nucleated RBC % Cancelled, Nucleated RBCs/100 WBC Cancelled, Differential Comment Cancelled, Diff Path Review Cancelled, Hypersegmented Neuts Cancelled, Atypical Lymphocytes Cancelled, Reactive Lymphocytes Cancelled, Smudge Cells Cancelled, Toxic Granulation Cancelled, Toxic Vacuolation Cancelled, Dohle Bodies Cancelled, Tyrone Rods Cancelled, Platelet Estimate Cancelled, Plt Morphology Comment Cancelled, RBC Morphology Cancelled, Polychromasia Cancelled, Hypochromasia Cancelled, Poikilocytosis Cancelled, Basophilic Stippling Cancelled, Anisocytosis Cancelled, Microcytosis Cancelled, Macrocytosis Cancelled, Spherocytes Cancelled, Sickle Cells Cancelled, Target Cells Cancelled, Tear Drop Cells Cancelled, Ovalocytes Cancelled, Stomatocytes Cancelled, [place] Bodies Cancelled, Kenneth Cells Cancelled, Bite Cells Cancelled, Crenated Cell Cancelled, Acanthocytes (Spur) Cancelled, Rouleaux Cancelled, Schistocytes Cancelled 04/04/20 07:57: Sodium 141, Potassium 3.6, Chloride 108 H, Carbon Dioxide 27.0, Anion Gap 6, BUN 49 H, Creatinine 1.61 H, Estim Creat Clear Calc 25.69, Est GFR (MDRD) Af Amer 42 L, Est GFR (MDRD) Non-Af 34 L, BUN/Creatinine Ratio 30.4 H, Glucose 120 H, Calcium 9.2, Total Bilirubin 0.80, AST 97 H, ALT 142 H, Alkaline Phosphatase 89, Total Protein 7.0, Albumin 3.1 L, Globulin 3.9, Albumin/Globulin Ratio 0.8 L Current Medications Acetaminophen (Acetaminophen 325 Mg Tablet) 650 mg PO Q6H PRN PRN PRN Reason: Pain 1-10 or Fever Last Admin: 04/04/20 09:19 Dose: 650 mg Documented by: Albuterol Sulfate (Albuterol 2.5 Mg/3 Ml Vial.Neb.) 2.5 mg INHALATION Q2H PRN PRN PRN Reason: Dyspnea, wheezing Albuterol/Ipratropium (Ipratropium/Albuterol Sulfate 3 Ml Ampul.Neb) 3 ml INHALATION Q4HWA.RT [facility] Last Admin: 04/04/20 07:08 Dose: 3 ml Documented by: Aspirin (Aspirin 81 Mg Tab.Chew) 81 mg GT DAILY@0800 [facility] Last Admin: 04/04/20 09:21 Dose: 81 mg Documented by: Enoxaparin Sodium (Enoxaparin 30 Mg/0.3 Ml Syringe) 30 mg SC DAILY@0600 [facility] Last Admin: 04/04/20 05:08 Dose: 30 mg Documented by: Famotidine (Famotidine 20 Mg Tablet) 20 mg GT DAILY [facility] Last Admin: 04/04/20 09:21 Dose: 20 mg Documented by: Fluoxetine HCl (Fluoxetine 20 Mg Capsule) 20 mg GT DAILY [facility] Last Admin: 04/04/20 09:21 Dose: 20 mg Documented by: Folic Acid (Folic Acid 1 Mg Tablet) 1 mg GT DAILY@0800 [facility] Stop: 04/05/20 08:01 Last Admin: 04/04/20 09:20 Dose: 1 mg Documented by: Hydralazine HCl (Hydralazine 20 Mg/Ml Vial) 10 mg IV Q4H PRN PRN PRN Reason: SBP > 160 Piperacillin Sod/Tazobactam (Sod 3.375 gm/ Sodium Chloride) 50 mls @ 12.5 mls/hr IV Q8 [facility] Last Infusion: 04/04/20 09:16 Dose: Infused Documented by: Sodium Chloride () 250 mls @ 15 mls/hr IV .[id number] PRN PRN Reason: Saline Flush Last Infusion: 04/04/20 01:25 Dose: 15 mls/hr Documented by: Sodium Chloride () 250 mls @ 15 mls/hr IV .[id number] PRN PRN Reason: Additional IVPB Infusion Last Infusion: 04/04/20 01:49 Dose: 15 mls/hr Documented by: Vancomycin IV Pharmacy to Dose (1 ea/ Sodium Chloride) 500 mls @ 250 mls/hr IV X1 PRN; Protocol PRN Reason: Rx to Dose Vancomycin HCl 750 mg/ Sodium (Chloride) 265 mls @ 250 mls/hr IV Q24H [facility] Levothyroxine Sodium (Levothyroxine 25 Mcg Tablet) 25 mcg GT DAILY@0600 [facility] Last Admin: 04/04/20 05:08 Dose: 25 mcg Documented by: Multivitamins/Minerals (Multivitamins,Ther W-Minerals Tablet) [facility] Last Admin: 04/04/20 09:20 Dose: 1 tablet Documented by: Nicotine (Nicotine 21 Mg Patch) 21 mg TD DAILY [facility] Last Admin: 04/04/20 09:20 Dose: 21 mg Documented by: Senna/Docusate Sodium (Senna/Docusate Sodium 1 Tablet) 2 tablet GT BID [facility] Last Admin: 04/03/20 21:26 Dose: 2 tablet Documented by: Sodium Chloride (Sodium Cl For Inhalation 15 Ml Vial.Neb.) 5 ml INHALATION Q5M PRN PRN Reason: Suctioning Sodium Chloride (0.9% Saline Lock 10 Ml Syringe) 10 - 40 ml IV UD PRN PRN Reason: SALINE FLUSH Last Admin: 04/03/20 17:07 Dose: 10 ml Documented by: Thiamine HCl (Thiamine Hydrochloride 100 Mg Tablet) [facility] Stop: 04/05/20 17:01 Last Admin: 04/04/20 09:20 Dose: 100 mg Documented by: STROKE Vital Signs/Narrative: Vital Signs Temp Pulse Resp BP Pulse Ox 04/04/20 09:00 80 16 121/58 H 98 04/04/20 08:00 99 F 93 15 148/100 H 95 04/04/20 07:49 88 20 H 94 04/04/20 07:20 88 17 04/04/20 07:16 92 04/04/20 07:00 90 24 H 135/87 H 97 04/04/20 06:00 99.0 F 94 14 140/68 H 94 Medical Necessity - Tobacco Use Smoking Status: Current every day smoker Tobacco Use: Cigarettes Assessment/Plan All Active Problems Sepsis (Acute) Respiratory failure with hypoxia and hypercapnia (Acute) Pneumonia (Acute) Flash pulmonary edema (Acute) Opiate overdose (Acute) Cardiac arrest (Acute) CORNELIUS (acute kidney injury) (Acute) Elevated LFTs (Acute) This 64-year-old patient female admitted with shortness of breath, apnea, hypoxia with drug paraphernalia resulting into acute combined respiratory failure and then intubation. She is a chronic alcohol and opioid use and dependence/polysubstance dependency. 1. Acute combined respiratory failure mostly secondary to polysubstance use with possible aspiration/pneumococcal pneumonia: Patient is extubated in the morning. Urinary antigen positive for strep pneumonia. Blood culture showed coagulase-negative staph. Respiratory panel rapid SARS-CoV-2 antigen negative. On 2 L of oxygen. On IV Zosyn and vancomycin but seems preliminary blood culture shows staph is coagulase-negative therefore does not need vancomycin. 2. Chronic alcohol use, chronic opioid/polysubstance use including methamphetamine, amphetamine, cannabinoids with chronic alcoholic/polysubstance use hepatitis: Patient takes sixpack of beer daily as per the daughter. On admission, EtOH was negative. Transaminases AST more than ALT elevated; improving. Total bili normal. Serum albumin low. 3. Acute kidney injury with rhabdomyolysis: Total CK 1742. Continue IV fluid. Repeat CK level. BUN/creatinine elevated. 49/1.61. Patient chest x-ray was reviewed which previously showed vascular congestion hand bilateral pneumonia. Repeat chest x-ray has cleared. Lasix is discontinued. Will consult nephrology. 4. Acute encephalopathy from polysubstance use: Resolved. Patient is talking coherent and is alert awake oriented x3. 5. Cardiac arrest, PEA status post CPR mostly secondary to polysubstance use with elevated troponin: Cardiology Manager is consulted. The echo was reported below. Mild right ventricular failure, chronic diastolic heart failure, mild MR Mild to moderate TR. Interpretation Summary Left ventricular systolic function is hyperdynamic. The estimated ejection fraction is 75 %. Severe assymetric septal hypertrophy. Mildly dilated right ventricle. Mild global right ventricular systolic dysfunction. There is mild mitral annular calcification. Extension of the mitral annular calcification onto the base of the posterior mitral valve leaflet. Mild (1+) mitral valve insufficiency. Mild to moderate (1-2+) tricuspid valve insufficiency. Right ventricular systolic pressure estimated to be 76 mmHg c/w severe pulmonary hypertension. Transmitral doppler flow suggestive of impaired relaxation of left ventricle Other comorbidities include hypertension, dyslipidemia, anxiety and depression, and hypothyroidism: VTE prophylaxis: Lovenox 30 mg subcu daily. CODE STATUS: Full code. Total time of the visit including total time spent in counseling or coordination of care, (more than 50% of the total time, spent in obtaining medical information from nurses and other ancillary care providers,explaining to the patient about labs, imaging, diagnosis and management), discussion with application consultant, review of labs and imaging is 30 minutes. Clinical Impression(s) from Imaging Studies Chest X-Ray 04/03/20 00:00 IMPRESSION: Support tubes in their expected locations. Mild vascular congestion and/or bilateral pneumonia. Electronically Signed: Raad Farrell MD at 1:14 EST , Service support , Chest X-Ray 04/03/20 05:55 IMPRESSION: Resolving vascular congestion. Enteric tube tip at the gastric cardia. Consider repositioning tube. Endotracheal tube in its expected location. Electronically Signed: Raad Farrell MD at 6:51 EST , Service support , KUB X-Ray 04/03/20 10:45 IMPRESSION: Enteric tube extends to the left upper abdomen/gastric fundus. Electronically Signed: Tj Shepherd MD ([place]) at 11:24 EST , Service support , KUB X-Ray 04/03/20 11:11 IMPRESSION: Enteric tube extends to the left upper abdomen/gastric fundus. Electronically Signed: Tj Shepherd MD ([place]) at 11:25 EST , Service support , Brain CT 04/03/20 23:54 IMPRESSION: Normal unenhanced CT scan of the brain. Electronically Signed: Raad Farrell MD at 1:45 EST , Service support , Inpatient E&M: [id number] [facility] L3
[2020-04-04 10:50] LABS: Basophil# 0.04 X10^3/uL; Basophil% 0.2 % (0-1); Eosinophil# 0.01 X10^3/uL; Eosinophils% 0.1 % (0-5); Hematocrit 42.4 % (37-47); Hemoglobin 14.1 g/dL (12.0-15.0); Mean Corp Hgb Conc 33.3 g/dL (32-36); Mean Corpuscular Hgb 32.7 pg (27.0-32.0); Mean Corpuscular Volume 98.4 fL (81-99); Mean Platelet Vol. 10.4 fl (6.2-12.0); Monocyte# 0.94 X10^3/uL; Monocyte% 5.8 % (0-10); NRBC Flagged by Analyzer 0 % (0-5); Neutrophil # 12.98 X10^3/uL (2.7-7.7); Neutrophil % 80.5 % (47-70); Platelet Count 244 K/mm3 (150-450); RBC Distribution Width CV 14.6 % (11.6-14.6); Red Blood Count 4.31 M/mm3 (4.2-5.4); White Blood Count 16.1 K/mm3 (4.4-11.0)
[2020-04-04 11:08] LABS: CPK Total, Creatine Kinase 297 U/L (26-192)
--- NOTE | 2020-04-04 12:10 | CASEMGMT ---
Social Work SW attended pt rounds. Pt extubated this morning and is sitting in bed, A&Ox3. SW met with pt after rounds and confirmed information obtained from daughter yesterday. Pt states she did just get insurance and has not found a PCP as of yet. SW provided list of area PCP for pt to choose from. Pt appreciative. Pt has no specialists, would like to use [facility] as pharmacy. Pt states she does not have a living will or health care POA but would like to complete these documents during hospital stay. Pt states she wants to talk to her daughter first and will then meet with SW to complete AD. SW will attempt to see pt later today as time allows. SW spoke with pt about drug and alcohol use. Pt states she drinks 3-4 beers a day and only on the weekends. Pt also states she smokes marijuana, but denies any other drug use at this time. SW inquired about opioids, methamphetamines and amphetamines, all of which were present on toxicology report, and pt denies using illicit drugs. SW inquired if she used drugs prior to hospitalization and pt denies. Pt does eventually states that she parties once in a while but denies using drugs regularly and not prior to hospitalization. SW inquired if pt would like resources for drug or alcohol use and pt adamantly denies. Pt denies any concerns with returning home at time of discharge. Per Pt, significant other can assist as needed. SW will follow up for advance directives. ISADORA Rick
--- NOTE | 2020-04-04 12:58 | CON.PCM_ITS ---
Consultation - Renal PCP/ Referring MD: Requesting physician: [] Primary care physician: No Primary Care Phys - History of Present Illness History of Present Illness: The patient is a 64 year old F PMH of Etoh abuse, polysubstance abuse, depression and anxiety, hypothyroidism . Patient was brought in to [facility] yesterday after she was found to be cyanotic and unresponsive. EMS gave her Narcan which help her to wake up. In ED she was severe hypertensive and hypoxic despite BiPAP so she was intubated . shortly after that she had CPA and CPR applied .she gained the circulation after 2 minutes. Patient was admitted to ICU. Chest xray showed b/l infiltrates from pneumonia/Pulmonary edema Patient was started on Abx and lasix. BC came back positive for G- staph. Patient improved . she was extubated this am. On NC at 2 l/min Renal team was consulted for CORNELIUS. Cr in 2017 was 0.9 mg/dl. Patient presented with Cr 1.6 mg/dl. She made 5 L with lasix 40 mg IV BID yesterday. lasix stopped Patient is hemodynamically stable. Echo reviewed. Patient has severe pulmonary HTN with Right ventricle systolic dysfunction and TR +2. Patient also left ventricle septal hypertrophy No complaints No NSADs use [] ROS: 12 systems review is negative today - Allergies Allergies: Allergies No Known Allergies Allergy (Verified 01/21/17 17:53) - Current Medications Current Medications: Current Medications Acetaminophen (Acetaminophen 325 Mg Tablet) 650 mg PO Q6H PRN PRN PRN Reason: Pain 1-10 or Fever Last Admin: 04/04/20 09:19 Dose: 650 mg Documented by: Albuterol Sulfate (Albuterol 2.5 Mg/3 Ml Vial.Neb.) 2.5 mg INHALATION Q2H PRN PRN PRN Reason: Dyspnea, wheezing Albuterol/Ipratropium (Ipratropium/Albuterol Sulfate 3 Ml Ampul.Neb) 3 ml INHALATION Q4HWA.RT [facility] Last Admin: 04/04/20 07:08 Dose: 3 ml Documented by: Aspirin (Aspirin 81 Mg Tab.Chew) 81 mg PO DAILY@0800 SHAR[facility] Enoxaparin Sodium (Enoxaparin 30 Mg/0.3 Ml Syringe) 30 mg SC DAILY@0600 [facility] Last Admin: 04/04/20 05:08 Dose: 30 mg Documented by: Famotidine (Famotidine 20 Mg Tablet) 20 mg PO DAILY [facility] Fluoxetine HCl (Fluoxetine 20 Mg Capsule) 20 mg PO DAILY [facility] Folic Acid (Folic Acid 1 Mg Tablet) 1 mg PO DAILY@0800 [facility] Stop: 04/05/20 08:01 Hydralazine HCl (Hydralazine 20 Mg/Ml Vial) 10 mg IV Q4H PRN PRN PRN Reason: SBP > 160 Piperacillin Sod/Tazobactam (Sod 3.375 gm/ Sodium Chloride) 50 mls @ 12.5 mls/hr IV Q8 [facility] Last Infusion: 04/04/20 09:16 Dose: Infused Documented by: Sodium Chloride () 250 mls @ 15 mls/hr IV .[id number] PRN PRN Reason: Saline Flush Last Infusion: 04/04/20 01:25 Dose: 15 mls/hr Documented by: Sodium Chloride () 250 mls @ 15 mls/hr IV .[id number] PRN PRN Reason: Additional IVPB Infusion Last Infusion: 04/04/20 01:49 Dose: 15 mls/hr Documented by: Levothyroxine Sodium (Levothyroxine 25 Mcg Tablet) 25 mcg PO DAILY@0600 [facility] Lorazepam (Lorazepam 1 Mg Tablet) 2 mg PO Q2H PRN PRN; Protocol PRN Reason: CIWA score > 8 but <15 Lorazepam (Lorazepam 1 Mg Tablet) 2 mg PO UD PRN; Protocol PRN Reason: CIWA score >/=15. Lorazepam (Lorazepam 2 Mg/Ml Syringe) 2 mg IV Q2H PRN PRN; Protocol PRN Reason: CIWA score > 8 but <15 Lorazepam (Lorazepam 2 Mg/Ml Syringe) 2 mg IV UD PRN; Protocol PRN Reason: CIWA score >/=15. Multivitamins/Minerals (Multivitamins,Ther W-Minerals Tablet) 1 tablet GT DAILYCM [facility] Last Admin: 04/04/20 09:20 Dose: 1 tablet Documented by: Nicotine (Nicotine 21 Mg Patch) 21 mg TD DAILY [facility] Last Admin: 04/04/20 09:20 Dose: 21 mg Documented by: Senna/Docusate Sodium (Senna/Docusate Sodium 1 Tablet) 2 tablet PO BID [facility] Sodium Chloride (Sodium Cl For Inhalation 15 Ml Vial.Neb.) 5 ml INHALATION Q5M PRN PRN Reason: Suctioning Sodium Chloride (0.9% Saline Lock 10 Ml Syringe) 10 - 40 ml IV UD PRN PRN Reason: SALINE FLUSH Last Admin: 04/03/20 17:07 Dose: 10 ml Documented by: Thiamine HCl (Thiamine Hydrochloride 100 Mg Tablet) 100 mg PO BIDCM [facility]AR[facility] Stop: 04/05/20 17:01 - Past Medical History Past Medical History (Chronic Problems): Chronic Problems Tobacco use (Chronic) HTN (hypertension) (Chronic) HLD (hyperlipidemia) (Chronic) Anxiety and depression (Chronic) Opiate abuse, continuous (Chronic) Alcohol abuse (Chronic) - Past Surgical History Surgical History: - - History of prior shoulder surgery, unclear for placement or arthroscopic per discussion with daughter, tailbone surgery, tonsillectomy. - Social History Smoking Status: Current every day smoker Alcohol: Heavy - Per daughter report patient intake of at least 6 pack of beer daily. Drugs: - - Patient with reportedly OPD abuse but unclear specific history of usage, EMS commented on methamphetamines at scene, urine drug screen with positive opiates, amphetamine, methamphetamine, cannabis. - Family History Maternal History Items: Hypertension Paternal History Items: Hypertension Patient Problems: Active and Suspected Problems Sepsis (Acute) Respiratory failure with hypoxia and hypercapnia (Acute) Pneumonia (Acute) Flash pulmonary edema (Acute) Opiate overdose (Acute) Cardiac arrest (Acute) CORNELIUS (acute kidney injury) (Acute) Elevated LFTs (Acute) - Physical Exam Vitals/I&O's: Vital Signs Temp Pulse Resp BP Pulse Ox 98.7 F 84 17 160/86 H 96 04/04/20 12:00 04/04/20 12:00 04/04/20 12:00 04/04/20 12:00 04/04/20 12:00 Oxygen Flow Rate (L/min) 2 Oxygen Delivery Method Nasal Cannula Weight: 59.421 kg Body Mass Index (BMI) 26.4 Finger Stick Blood Glucose 77 Intake and Output for Last 24 Hours 04/02/20 04/03/20 04/04/20 23:59 23:59 23:59 Intake Total 3073.14 / 3083.14 1349.90 / 1349.90 Output Total 5050 / 5050 800 / 800 Balance -1976.86 / -1965.86 549.90 / 549.90 General: Alert, Oriented x3 HEENT: Atraumatic Oral: Moist Mucosa Neck: Supple, No JVD Lungs: - - b/l coarse BS Cardiovascular: Regular rate, Regular Rhythm, Normal S1, Normal S2 Abdomen: Bowel Sounds Present, Soft, Non Tender Extremities: No clubbing, No cyanosis, No edema Skin: No rashes Musculoskeletal: No Tenderness to Palpation of Joints or Extremities Lymphatic: No Cervical, Supraclavicular, or Inguinal Adenopathy Neurological: Cranial nerves II-XII grossly intact, Neuro grossly intact Psych/Mental Status: Appropriate Microbiology Past 72 Hours 04/03/20 02:30 Sputum, Induced/Lukens Gram Stain - Final 04/03/20 02:30 Sputum, Induced/Lukens Respiratory Culture - Preliminary Alpha Hemolytic Streptococcus GNR Possible Haemophilus sp. 04/03/20 00:10 Blood Culture (Wb) - Neck Bacteria Detection (PCR) - Final Coag Negative Staph 04/03/20 00:10 Blood Culture (Wb) - Neck Blood Culture - Preliminary Coag Negative Staph 04/03/20 07:35 Mucosa - Nose SARS-CoV-2 Antigen (Rapid) - Final 04/03/20 02:30 Mucosa - Nose Respiratory Panel (PCR) - Final 04/03/20 00:08 Urine Catheter - Catheter Legionella Antigen - Final 04/03/20 00:08 Urine Catheter - Catheter Streptococcus pneumoniae Antigen (M - Final Streptococcus pneumonia Ag Laboratory Results 04/04/20 07:57: WBC Cancelled, Corrected WBC Cancelled, RBC Cancelled, Hgb Cancelled, Hct Cancelled, MCV Cancelled, MCH Cancelled, MCHC Cancelled, RDW Std Deviation Cancelled, RDW Coeff of Josue Cancelled, Plt Count Cancelled, MPV Cancelled, Immature Gran % (Auto) Cancelled, Neut % (Auto) Cancelled, Lymph % (Auto) Cancelled, [place] % (Auto) Cancelled, Eos % (Auto) Cancelled, Baso % (Auto) Cancelled, Absolute Neuts (auto) Cancelled, Absolute Lymphs (auto) Cancelled, Total Counted Cancelled, Neutrophils % (Manual) Cancelled, Band Neutrophils % Cancelled, Lymphocytes % (Manual) Cancelled, Monocytes % (Manual) Cancelled, Eosinophils % (Manual) Cancelled, Basophils % (Manual) Cancelled, Metamyelocytes % Cancelled, Myelocytes % Cancelled, Promyelocytes % Cancelled, Blast Cells % Cancelled, Plasma Cell % (Manual) Cancelled, Other Cells % Cancelled, Nucleated RBC % Cancelled, Nucleated RBCs/100 WBC Cancelled, Differential Comment Cancelled, Diff Path Review Cancelled, Hypersegmented Neuts Cancelled, Atypical Lymphocytes Cancelled, Reactive Lymphocytes Cancelled, Smudge Cells Cancelled, Toxic Granulation Cancelled, Toxic Vacuolation Cancelled, Dohle Bodies Cancelled, Tyrone Rods Cancelled, Platelet Estimate Cancelled, Plt Morphology Comment Cancelled, RBC Morphology Cancelled, Polychromasia Cancelled, Hypoc hromasia Cancelled, Poikilocytosis Cancelled, Basophilic Stippling Cancelled, Anisocytosis Cancelled, Microcytosis Cancelled, Macrocytosis Cancelled, Spherocytes Cancelled, Sickle Cells Cancelled, Target Cells Cancelled, Tear Drop Cells Cancelled, Ovalocytes Cancelled, Stomatocytes Cancelled, [place] Bodies Cancelled, Oj Cells Cancelled, Bite Cells Cancelled, Crenated Cell Cancelled, Acanthocytes (Spur) Cancelled, Rouleaux Cancelled, Schistocytes Cancelled 04/04/20 07:57: Sodium 141, Potassium 3.6, Chloride 108 H, Carbon Dioxide 27.0, Anion Gap 6, BUN 49 H, Creatinine 1.61 H, Estim Creat Clear Calc 25.69, Est GFR (MDRD) Af Amer 42 L, Est GFR (MDRD) Non-Af 34 L, BUN/Creatinine Ratio 30.4 H, Glucose 120 H, Calcium 9.2, Total Bilirubin 0.80, AST 97 H, ALT 142 H, Alkaline Phosphatase 89, Total Protein 7.0, Albumin 3.1 L, Globulin 3.9, Albumin/Globulin Ratio 0.8 L 04/04/20 07:57: Total Creatine Kinase 297 H 04/04/20 10:40: WBC 16.1 H, RBC 4.31, Hgb 14.1, Hct 42.4, MCV 98.4 D, MCH 32.7 H, MCHC 33.3 D, RDW Std Deviation 53.0 H, RDW Coeff of Josue 14.6, Plt Count 244, MPV 10.4, Immature Gran % (Auto) 0.400, Neut % (Auto) 80.5 H, Lymph % (Auto) 1 3.0 L, [place] % (Auto) 5.8, Eos % (Auto) 0.1, Baso % (Auto) 0.2, Absolute Neuts (auto) 13.0 H, Absolute Lymphs (auto) 2.10, Nucleated RBC % 0 Current Medications Acetaminophen (Acetaminophen 325 Mg Tablet) 650 mg PO Q6H PRN PRN PRN Reason: Pain 1-10 or Fever Last Admin: 04/04/20 09:19 Dose: 650 mg Documented by: Albuterol Sulfate (Albuterol 2.5 Mg/3 Ml Vial.Neb.) 2.5 mg INHALATION Q2H PRN PRN PRN Reason: Dyspnea, wheezing Albuterol/Ipratropium (Ipratropium/Albuterol Sulfate 3 Ml Ampul.Neb) 3 ml INHALATION Q4HWA.RT [facility] Last Admin: 04/04/20 07:08 Dose: 3 ml Documented by: Aspirin (Aspirin 81 Mg Tab.Chew) 81 mg PO DAILY@0800 [facility] Enoxaparin Sodium (Enoxaparin 30 Mg/0.3 Ml Syringe) 30 mg SC DAILY@0600 [facility] Last Admin: 04/04/20 05:08 Dose: 30 mg Documented by: Famotidine (Famotidine 20 Mg Tablet) 20 mg PO DAILY [facility] Fluoxetine HCl (Fluoxetine 20 Mg Capsule) 20 mg PO DAILY [facility] Folic Acid (Folic Acid 1 Mg Tablet) 1 mg PO DAILY@0800 [facility] Stop: 04/05/20 08:01 Hydralazine HCl (Hydralazine 20 Mg/Ml Vial) 10 mg IV Q4H PRN PRN PRN Reason: SBP > 160 Piperacillin Sod/Tazobactam (Sod 3.375 gm/ Sodium Chloride) 50 mls @ 12.5 mls/hr IV Q8 [facility] Last Infusion: 04/04/20 09:16 Dose: Infused Documented by: Sodium Chloride () 250 mls @ 15 mls/hr IV .[id number] PRN PRN Reason: Saline Flush Last Infusion: 04/04/20 01:25 Dose: 15 mls/hr Documented by: Sodium Chloride () 250 mls @ 15 mls/hr IV .[id number] PRN PRN Reason: Additional IVPB Infusion Last Infusion: 04/04/20 01:49 Dose: 15 mls/hr Documented by: Levothyroxine Sodium (Levothyroxine 25 Mcg Tablet) 25 mcg PO DAILY@0600 [facility] Lorazepam (Lorazepam 1 Mg Tablet) 2 mg PO Q2H PRN PRN; Protocol PRN Reason: CIWA score > 8 but <15 Lorazepam (Lorazepam 1 Mg Tablet) 2 mg PO UD PRN; Protocol PRN Reason: CIWA score >/=15. Lorazepam (Lorazepam 2 Mg/Ml Syringe) 2 mg IV Q2H PRN PRN; Protocol PRN Reason: CIWA score > 8 but <15 Lorazepam (Lorazepam 2 Mg/Ml Syringe) 2 mg IV UD PRN; Protocol PRN Reason: CIWA score >/=15. Multivitamins/Minerals (Multivitamins,Ther [facility]inerals [facility]t) [facility] Last Admin: 04/04/20 09:20 Dose: 1 tablet Documented by: Nicotine (Nicotine 21 Mg Patch) 21 mg TD DAILY [facility] Last Admin: 04/04/20 09:20 Dose: 21 mg Documented by: Senna/Docusate Sodium (Senna/Docusate Sodium 1 Tablet) 2 tablet PO BID [facility] Sodium Chloride (Sodium Cl For Inhalation 15 Ml Vial.Neb.) 5 ml INHALATION Q5M PRN PRN Reason: Suctioning Sodium Chloride (0.9% Saline Lock 10 Ml Syringe) 10 - 40 ml IV UD PRN PRN Reason: SALINE FLUSH Last Admin: 04/03/20 17:07 Dose: 10 ml Documented by: Thiamine HCl ([facility] Hydro[facility]ide 100 Mg Tablet) [facility] Stop: 04/05/20 17:01 Assessment/Plan All Active Problems Sepsis (Acute) Respiratory failure with hypoxia and hypercapnia (Acute) Pneumonia (Acute) Flash pulmonary edema (Acute) Opiate overdose (Acute) Cardiac arrest (Acute) CORNELIUS (acute kidney injury) (Acute) Elevated LFTs (Acute) 1- Acute kidney injury. Unknown if the patient has CKD at baseline. last Cr from 2.17 was 0.9 mg/dl UA showed 100 protein. Patient has severe pulmonary HTN along with reduce R ventricle systolic function. Patient could have CRS contributing to CORNELIUS/CKD CORNELIUS could be hemodynamic from CPA and overdiuresis Cr is 1.6 mg/dl this am. patient made 5 L with lasix Agree with holding diuretics for now. VS has been stable Keep MAP > 65 No need for FILTERER Check RFP in am 2- Acute hypoxic RF from aspiration pneumonia. CHF could be contributing too Improved. extubated. continue pneumonia treatment as you are doing Hold lasix for now. Might have to resume it if respiratory status worsens 3- HTN: BP is above the target. Will add norvasc 5 mg PO daily On hydralazine PRN 4- Opiate and polysubstance over dose. Better. s/p Narcan administration Depression and anxiety management as per the primary service Thank you for the consult, Renal team will continue to follow Please call if any question or concern at [phone] Jens Shen MD
[2020-04-04] MEDS: 0.9% Saline Lock 10 ML Syringe IV (13:07)
[2020-04-04] MEDS: hydrALAZINE 20 MG/ML Vial 10 MG IV (13:14)
--- NOTE | 2020-04-04 13:33 | PN.CARD_ITS ---
Subjectve: Patient is extubated. Patient denies any anginal symptoms prior to the respiratory arrest. She does have history of shortness of breath but is also a smoker and intends to quit. She denies any dizziness prior to this event. Objective: Vital Signs Temp Pulse Resp BP Pulse Ox 98.7 F 86 19 H 165/85 H 97 04/04/20 12:00 04/04/20 13:24 04/04/20 13:24 04/04/20 13:14 04/04/20 13:00 Oxygen Flow Rate (L/min) 2 Oxygen Delivery Method Nasal Cannula Weight: 131 lb Body Mass Index (BMI) 26.4 Finger Stick Blood Glucose 77 Intake and Output for Last 24 Hours 04/02/20 04/03/20 04/04/20 23:59 23:59 23:59 Intake Total 3073.14 / 3083.14 1699.90 / 1699.90 Output Total 5050 / 5050 900 / 900 Balance -1976.86 / -1966.86 799.90 / 799.90 General: Awake, Alert, Oriented x 3 HEENT: Atraumatic Oral: Moist Mucosa Cardiovascular: Regular Rhythm 04/04/20 07:57: WBC Cancelled, Corrected WBC Cancelled, RBC Cancelled, Hgb Cancelled, Hct Cancelled, MCV Cancelled, MCH Cancelled, MCHC Cancelled, Plt Count Cancelled, MPV Cancelled, Immature Gran % (Auto) Cancelled, Neut % (Auto) Cancelled, Lymph % (Auto) Cancelled, [place] % (Auto) Cancelled, Eos % (Auto) Cancelled, Baso % (Auto) Cancelled, Absolute Neuts (auto) Cancelled, Total Counted Cancelled, Neutrophils % (Manual) Cancelled, Band Neutrophils % Cancelled, Lymphocytes % (Manual) Cancelled, Monocytes % (Manual) Cancelled, Eosinophils % (Manual) Cancelled, Basophils % (Manual) Cancelled, Metamyelocytes % Cancelled, Myelocytes % Cancelled, Promyelocytes % Cancelled, Blast Cells % Cancelled, Plasma Cell % (Manual) Cancelled, Other Cells % Cancelled, Nucleated RBC % Cancelled 04/04/20 07:57: Sodium 141, Potassium 3.6, Chloride 108 H, Carbon Dioxide 27.0, Anion Gap 6, BUN 49 H, Creatinine 1.61 H, Est GFR (MDRD) Af Amer 42 L, Est GFR (MDRD) Non-Af 34 L, BUN/Creatinine Ratio 30.4 H, Glucose 120 H, Calcium 9.2, Total Bilirubin 0.80 04/04/20 10:40: WBC 16.1 H, RBC 4.31, Hgb 14.1, Hct 42.4, MCV 98.4 D, MCH 32.7 H, MCHC 33.3 D, Plt Count 244, MPV 10.4, Immature Gran % (Auto) 0.400, Neut % (Auto) 80.5 H, Lymph % (Auto) 13.0 L, [place] % (Auto) 5.8, Eos % (Auto) 0.1, Baso % (Auto) 0.2, Absolute Neuts (auto) 13.0 H, Nucleated RBC % 0 Rhythm: EKG: ECHO: Stress Test: Cardiac Cath: PCI: CT Surgery: Holter monitor: EPS: PPM: CXR: Chest CT Scan: Medical Necessity - Tobacco Use Smoking Status: Current every day smoker Tobacco Use: Cigarettes Assessment/Plan 1. Cardiac arrest: Appears to be related to drug overdose, hypoxia etc. No further cardiac work-up required at this time. Follow-up with Dr. Moe as an outpatient. 2. Asymmetric septal hypertrophy: Patient can follow-up with Dr. Moe. 3. Elevated troponin: Likely related to respiratory arrest due to drug overdose. If patient has anginal symptoms then we can consider further work-up at that time. At this time she does not need any work-up or specific treatment for this. 4. Pulmonary hypertension: Patient has history of smoking. She was also intuba xiang due to respiratory arrest when the echo was done. 2D echo can be repeated as an outpatient to recheck the pulmonary pressures. We will sign off at this time. Please let us know if we can be of any further assistance.
--- NOTE | 2020-04-04 15:11 | CASEMGMT ---
Social Work SW assisted pt in completing Healthcare POA and Living Will documents. Pt naming her daughter Brenda Shelton as HCPOA. Originals given to pt and copies placed on pt chart. ISADORA Hwang
[2020-04-04] MEDS: amLODIPine 5 MG Tablet PO (15:21)
[2020-04-04] MEDS: Thiamine Hydrochloride 100 MG Tablet PO (16:57)
[2020-04-04] MEDS: Ibuprofen 600 MG Tablet PO (19:59)
[2020-04-05] VITALS (17 sets, daily range): BP systolic 149–168; BP diastolic 78–90; PULSE 64–89; RESP 16–20; TEMP 36.1–36.8; O2SAT 91–99
[2020-04-05] MEDS: Acetaminophen 325 MG Tablet 650 MG PO ×2 (00:19→06:21)
[2020-04-05] MEDS: Ketorolac 15 MG/ML Vial IV (05:11)
--- NOTE | 2020-04-05 05:49 | PCM.PN.INT ---
Subjective: The patient was seen and examined at the bedside this morning. Events from the last 24 hours have been reviewed. The patient is currently afebrile, hemodynamically stable and maintaining appropriate oxygen saturations on 1 L/min via nasal cannula. The patient did report the presence of rib pain overnight, which was treated with Toradol x1. Objective: The patient's most recent lab work, culture data and imaging studies have all been personally reviewed. Surface echocardiogram revealed normal LV size with severe asymmetric septal hypertrophy, along with evidence of diastolic dysfunction. The RV was mildly dilated with global RV systolic dysfunction and a right ventricular systolic pressure estimated to be 76 mmHg. Strep pneumoniae urinary antigen was positive. Initial blood culture was positive for coag negative staph. Respiratory viral panel was negative. Rapid coronavirus antigen testing was negative. Sputum culture is currently growing alpha hemolytic Streptococcus and possible Haemophilus. General: Alert, Cooperative, No apparent distress HEENT: Atraumatic, Normocephalic Oral: No Gingival or Mucosal Lesions/ Ulcerations Neck: Supple, No Nodes, Trachea Midline Lungs: No rhonchi, No wheeze, No rales, Diminished Cardiovascular: Regular rate, Regular Rhythm, Normal S1, Normal S2, No murmurs Abdomen: Bowel Sounds Present, Soft, Non Tender Extremities: No clubbing, No cyanosis, No edema Skin: No breakdown Musculoskeletal: No Tenderness to Palpation of Joints or Extremities Lymphatic: No Cervical, Supraclavicular, or Inguinal Adenopathy Neurological: Cranial nerves II-XII grossly intact, Neuro grossly intact Psych/Mental Status: Normal Affect Vital Signs Temp Pulse Resp BP Pulse Ox 98.0 F 82 19 H 164/88 H 96 04/05/20 02:00 04/05/20 03:16 04/05/20 02:00 04/05/20 02:00 04/05/20 02:00 Oxygen Flow Rate (L/min) 1 Oxygen Delivery Method Nasal Cannula Weight: 128 lb 8 oz Body Mass Index (BMI) 26.4 Finger Stick Blood Glucose 77 Intake and Output for Last 24 Hours 04/03/20 04/04/20 04/05/20 23:59 23:59 23:59 Intake Total 3073.14 / 3083.14 2678.15 / 2678.15 50 / 50 Output Total 5050 / 5050 1225 / 1225 Balance -86 / -1965.86 1453.15 / 1453.15 50 / 50 Labs (Last 48 Hours) 04/03/20 04/04/20 04/04/20 06:10 07:57 07:57 WBC Cancelled Corrected WBC Cancelled RBC Cancelled Hgb Cancelled Hct Cancelled MCV Cancelled MCH Cancelled MCHC Cancelled RDW Std Deviation Cancelled RDW Coeff of Josue Cancelled Plt Count Cancelled MPV Cancelled Immature Gran % (Auto) Cancelled Neut % (Auto) Cancelled Lymph % (Auto) Cancelled Will % (Auto) Cancelled Eos % (Auto) Cancelled Baso % (Auto) Cancelled Absolute Neuts (auto) Cancelled Absolute Lymphs (auto) Cancelled Total Counted Cancelled Neutrophils % (Manual) Cancelled Band Neutrophils % Cancelled Lymphocytes % (Manual) Cancelled Monocytes % (Manual) Cancelled Eosinophils % (Manual) Cancelled Basophils % (Manual) Cancelled Metamyelocytes % Cancelled Myelocytes % Cancelled Promyelocytes % Cancelled Blast Cells % Cancelled Plasma Cell % (Manual) Cancelled Other Cells % Cancelled Nucleated RBC % Cancelled Nucleated RBCs/100 WBC Cancelled Differential Comment Cancelled Diff Path Review Cancelled Hypersegmented Neuts Cancelled Atypical Lymphocytes Cancelled Reactive Lymphocytes Cancelled Smudge Cells Cancelled Toxic Granulation Cancelled Toxic Vacuolation Cancelled Dohle Bodies Cancelled Tyrone Rods Cancelled Platelet Estimate Cancelled Plt Morphology Comment Cancelled RBC Morphology Cancelled Polychromasia Cancelled Hypochromasia Cancelled Poikilocytosis Cancelled Basophilic Stippling Cancelled Anisocytosis Cancelled Microcytosis Cancelled Macrocytosis Cancelled Spherocytes Cancelled Sickle Cells Cancelled Target Cells Cancelled Tear Drop Cells Cancelled Ovalocytes Cancelled Stomatocytes Cancelled [place] Bodies Cancelled [place] Cells Cancelled Bite Cells Cancelled Crenated Cell Cancelled Acanthocytes (Spur) Cancelled Rouleaux Cancelled Schistocytes Cancelled Sodium 141 Potassium 3.6 Chloride 108 H Carbon Dioxide 27.0 Anion Gap 6 BUN 49 H Creatinine 1.61 H Estim Creat Clear Calc 25.69 Est GFR (MDRD) Af Amer 42 L Est GFR (MDRD) Non-Af 34 L BUN/Creatinine Ratio 30.4 H Glucose 120 H Calcium 9.2 Total Bilirubin 0.80 AST 97 H ALT 142 H Alkaline Phosphatase 89 Total Creatine Kinase Troponin I 0.869 H* Total Protein 7.0 Albumin 3.1 L Globulin 3.9 Albumin/Globulin Ratio 0.8 L 04/04/20 04/04/20 07:57 10:40 WBC 16.1 H Corrected WBC RBC 4.31 Hgb 14.1 Hct 42.4 MCV 98.4 D MCH 32.7 H MCHC 33.3 D RDW Std Deviation 53.0 H RDW Coeff of Josue 14.6 Plt Count 244 MPV 10.4 Immature Gran % (Auto) 0.400 Neut % (Auto) 80.5 H Lymph % (Auto) 13.0 L Will % (Auto) 5.8 Eos % (Auto) 0.1 Baso % (Auto) 0.2 Absolute Neuts (auto) 13.0 H Absolute Lymphs (auto) 2.10 Total Counted Neutrophils % (Manual) Band Neutrophils % Lymphocytes % (Manual) Monocytes % (Manual) Eosinophils % (Manual) Basophils % (Manual) Metamyelocytes % Myelocytes % Promyelocytes % Blast Cells % Plasma Cell % (Manual) Other Cells % Nucleated RBC % 0 Nucleated RBCs/100 WBC Differential Comment Diff Path Review Hypersegmented Neuts Atypical Lymphocytes Reactive Lymphocytes Smudge Cells Toxic Granulation Toxic Vacuolation Dohle Bodies Tyrone Rods Platelet Estimate Plt Morphology Comment RBC Morphology Polychromasia Hypochromasia Poikilocytosis Basophilic Stippling Anisocytosis Microcytosis Macrocytosis Spherocytes Sickle Cells Target Cells Tear Drop Cells Ovalocytes Stomatocytes [place] Bodies [place] Cells Bite Cells Crenated Cell Acanthocytes (Spur) Rouleaux Schistocytes Sodium Potassium Chloride Carbon Dioxide Anion Gap BUN Creatinine Estim Creat Clear Calc Est GFR (MDRD) Af Amer Est GFR (MDRD) Non-Af BUN/Creatinine Ratio Glucose Calcium Total Bilirubin AST ALT Alkaline Phosphatase Total Creatine Kinase 297 H Troponin I Total Protein Albumin Globulin Albumin/Globulin Ratio Microbiology 04/03/20 02:30 Sputum, Induced/Lukens Gram Stain - Final 04/03/20 02:30 Sputum, Induced/Lukens Respiratory Culture - Preliminary Alpha Hemolytic Streptococcus GNR Possible Haemophilus sp. 04/03/20 00:10 Blood Culture (Wb) - Neck Bacteria Detection (PCR) - Final Coag Negative Staph 04/03/20 00:10 Blood Culture (Wb) - Neck Blood Culture - Preliminary Coag Negative Staph 04/03/20 07:35 Mucosa - Nose SARS-CoV-2 Antigen (Rapid) - Final 04/03/20 02:30 Mucosa - Nose Respiratory Panel (PCR) - Final 04/03/20 00:08 Urine Catheter - Catheter Legionella Antigen - Final 04/03/20 00:08 Urine Catheter - Catheter Streptococcus pneumoniae Antigen (M - Final Streptococcus pneumonia Ag Clinical Impression(s) from Imaging Studies Chest X-Ray 04/03/20 00:00 IMPRESSION: Support tubes in their expected locations. Mild vascular congestion and/or bilateral pneumonia. Electronically Signed: Raad Farrell MD at 1:14 EST , Service support , Chest X-Ray 04/03/20 05:55 IMPRESSION: Resolving vascular congestion. Enteric tube tip at the gastric cardia. Consider repositioning tube. Endotracheal tube in its expected location. Electronically Signed: Raad Farrell MD at 6:51 EST , Service support , KUB X-Ray 04/03/20 10:45 IMPRESSION: Enteric tube extends to the left upper abdomen/gastric fundus. Electronically Signed: Tj Shepherd MD ([place]) at 11:24 EST , Service support , KUB X-Ray 04/03/20 11:11 IMPRESSION: Enteric tube extends to the left upper abdomen/gastric fundus. Electronically Signed: Tj Shepherd MD ([place]) at 11:25 EST , Service support , Brain CT 04/03/20 23:54 IMPRESSION: Normal unenhanced CT scan of the brain. Electronically Signed: Raad Farrell MD at 1:45 EST , Service support , Medical Necessity - Tobacco Use Smoking Status: Current every day smoker Tobacco Use: Cigarettes Assessment/Plan All Active Problems Sepsis (Acute) Respiratory failure with hypoxia and hypercapnia (Acute) Pneumonia (Acute) Flash pulmonary edema (Acute) Opiate overdose (Acute) Cardiac arrest (Acute) CORNELIUS (acute kidney injury) (Acute) Elevated LFTs (Acute) RECOMMENDATIONS: 1. Continue antimicrobials as ordered. 2. Wean supplemental oxygen to maintain saturations at or above 90%. 3. Encourage incentive spirometer use and mobilize patient as tolerated. 4. Continue scheduled bronchodilator therapy. 5. Continue CIWA protocol and nicotine replacement therapy. 6. The patient is medically stable for transfer out of the intensive care unit. 7. Given the patient's lack of further ICU needs, will sign off. Please call with any additional questions. IMPRESSIONS: 1. Acute combined respiratory failure Most likely secondary to acute illicit drug ingestion coupled with probable aspiration/pneumococcal pneumonia. Although the patient was intubated in the emergency department, she was able to be liberated from invasive mechanical ventilatory support within 48 hours. She remains on antimicrobials. Plan to continue to wean oxygen to maintain saturations at or above 90%. Encourage incentive spirometer use and mobilize patient as tolerated. Scheduled bronchodilators will also be continued. 2. Encephalopathy Resolved. As above, the patient's initial presenting encephalopathy was likely secondary to acute illicit drug intoxication. In addition, the patient reportedly drinks a significant amount of alcohol on a daily basis. CT head was unremarkable. Continue to provide supportive measures as noted above. 3. Acute kidney injury Most likely prerenal in etiology. Continue to monitor urine output for now. No current indication for renal replacement therapy. 4. History of polysubstance dependency The patient did have a markedly positive toxicology screen and reportedly has a history of alcoholism as well. Continue CIWA protocol. 5. Anxiety/hypertension/hypothyroidism Complicates care, management, recovery and prognosis. Continue home medications as indicated. This note was generated with [employer] software. It may contain incorrect words, spelling, and punctuation that were not noted in checking the note before signing. Inpatient E&M: 33014 [facility]
[2020-04-05] MEDS: Enoxaparin 30 MG/0.3 ML Syringe SC (06:21)
[2020-04-05] MEDS: Levothyroxine 25 MCG TABLET PO (06:21)
[2020-04-05] MEDS: Ipratropium/Albuterol Sulfate 3 ML AMPUL.NEB INHALATION ×5 (07:08→22:59)
--- NOTE | 2020-04-05 07:36 | PN_ITS ---
Patient Problems: Active and Suspected Problems Sepsis (Acute) Respiratory failure with hypoxia and hypercapnia (Acute) Pneumonia (Acute) Flash pulmonary edema (Acute) Opiate overdose (Acute) Cardiac arrest (Acute) CORNELIUS (acute kidney injury) (Acute) Elevated LFTs (Acute) Reason for Visit: Follow-up for polysubstance use, acute respiratory failure status post intubation and then extubation and opioid withdrawal syndrome Objective: Seen and examined. No fever. T-max 99.5 yesterday afternoon. In the morning afebrile. Blood pressure was elevated in systolic 170s to 180s prior related to withdrawal syndrome. Pulse ox 96% on 1 L of oxygen. Patient having restlessness of legs, anxiety, sweating, high blood pressure suggestive of opioid withdrawal syndrome Physical exam General: Alert, Oriented x3, Cooperative HEENT: Atraumatic, PERRLA, EOMI, Normocephalic Oral: No Gingival or Mucosal Lesions/ Ulcerations Neck: Supple, No JVD, Negative Carotid Bruits Lungs: Air entry diminished in bilateral lung bases. No crepitation/rhonchi Cardiovascular: Mild tenderness over right upper and midsternal chest. Regular rate, Regular Rhythm, Normal S1, Normal S2, No murmurs Abdomen: Bowel Sounds Present, Soft, Non Tender, Non-Distended : No renal angle tenderness. No suprapubic tenderness. Extremities: No edema, Capillary Refill Less than 3 Seconds Skin: No rashes, No breakdown Musculoskeletal: No Tenderness to Palpation of Joints or Extremities Neurological: Cranial nerves II-XII grossly intact, Deep Tendon Reflexes 2+/4 and Symmetrical, Neuro grossly intact Psych/Mental Status: Restless, anxious Vitals/I&O's: Vital Signs Temp Pulse Resp BP Pulse Ox 98.0 F 82 19 H 164/88 H 96 04/05/20 02:00 04/05/20 03:16 04/05/20 02:00 04/05/20 02:00 04/05/20 02:00 Oxygen Flow Rate (L/min) 1 Oxygen Delivery Method Nasal Cannula Weight: 128 lb 8 oz Body Mass Index (BMI) 26.4 Finger Stick Blood Glucose 77 Intake and Output for Last 24 Hours 04/03/20 04/04/20 04/05/20 23:59 23:59 23:59 Intake Total 3073.14 / 3083.14 2678.15 / 2678.15 50 / 50 Output Total 5050 / 5050 1225 / 1225 350 / 350 Balance -1975.86 / -1966.86 1453.15 / 1453.15 -300 / -300 Microbiology Past 72 Hours 04/03/20 02:30 Sputum, Induced/Lukens Gram Stain - Final 04/03/20 02:30 Sputum, Induced/Lukens Respiratory Culture - Preliminary Streptococcus pneumoniae GNR Possible Haemophilus sp. Staphylococcus aureus 04/03/20 00:10 Blood Culture (Wb) - Neck Bacteria Detection (PCR) - Final Coag Negative Staph 04/03/20 00:10 Blood Culture (Wb) - Neck Blood Culture - Preliminary Coag Negative Staph 04/03/20 07:35 Mucosa - Nose SARS-CoV-2 Antigen (Rapid) - Final 04/03/20 02:30 Mucosa - Nose Respiratory Panel (PCR) - Final 04/03/20 00:08 Urine Catheter - Catheter Legionella Antigen - Final 04/03/20 00:08 Urine Catheter - Catheter Streptococcus pneumoniae Antigen (M - Final Streptococcus pneumonia Ag Laboratory Results 04/04/20 07:57: WBC Cancelled, Corrected WBC Cancelled, RBC Cancelled, Hgb Cancelled, Hct Cancelled, MCV Cancelled, MCH Cancelled, MCHC Cancelled, RDW Std Deviation Cancelled, RDW Coeff of Josue Cancelled, Plt Count Cancelled, MPV Cancelled, Immature Gran % (Auto) Cancelled, Neut % (Auto) Cancelled, Lymph % (Auto) Cancelled, Bates % (Auto) Cancelled, Eos % (Auto) Cancelled, Baso % (Auto) Cancelled, Absolute Neuts (auto) Cancelled, Absolute Lymphs (auto) Cancelled, Total Counted Cancelled, Neutrophils % (Manual) Cancelled, Band Neutrophils % Cancelled, Lymphocytes % (Manual) Cancelled, Monocytes % (Manual) Cancelled, Eosinophils % (Manual) Cancelled, Basophils % (Manual) Cancelled, Metamyelocytes % Cancelled, Myelocytes % Cancelled, Promyelocytes % Cancelled, Blast Cells % Cancelled, Plasma Cell % (Manual) Cancelled, Other Cells % Cancelled, Nucleated RBC % Cancelled, Nucleated RBCs/100 WBC Cancelled, Differential Comment Cancelled, Diff Path Review Cancelled, Hypersegmented Neuts Cancelled, Atypical Lymphocytes Cancelled, Reactive Lymphocytes Cancelled, Smudge Cells Cancelled, Toxic Granulation Cancelled, Toxic Vacuolation Cancelled, Dohle Bodies Cancelled, Tyrone Rods Cancelled, Platelet Estimate Cancelled, Plt Morphology C omment Cancelled, RBC Morphology Cancelled, Polychromasia Cancelled, Hypochromasia Cancelled, Poikilocytosis Cancelled, Basophilic Stippling Cancelled, Anisocytosis Cancelled, Microcytosis Cancelled, Macrocytosis Cancelled, Spherocytes Cancelled, Sickle Cells Cancelled, Target Cells Cancelled, Tear Drop Cells Cancelled, Ovalocytes Cancelled, Stomatocytes Cancelled, Renteria-Whitmore Bodies Cancelled, Oj Cells Cancelled, Bite Cells Cancelled, Crenated Cell Cancelled, Acanthocytes (Spur) Cancelled, Rouleaux Cancelled, Schistocytes Cancelled 04/04/20 07:57: Sodium 141, Potassium 3.6, Chloride 108 H, Carbon Dioxide 27.0, Anion Gap 6, BUN 49 H, Creatinine 1.61 H, Estim Creat Clear Calc 25.69, Est GFR (MDRD) Af Amer 42 L, Est GFR (MDRD) Non-Af 34 L, BUN/Creatinine Ratio 30.4 H, Glucose 120 H, Calcium 9.2, Total Bilirubin 0.80, AST 97 H, ALT 142 H, Alkaline Phosphatase 89, Total Protein 7.0, Albumin 3.1 L, Globulin 3.9, Albumin/Globulin Ratio 0.8 L 04/04/20 07:57: Total Creatine Kinase 297 H 04/04/20 10:40: WBC 16.1 H, RBC 4.31, Hgb 14.1, Hct 42.4, MCV 98.4 D, MCH 32.7 H, MCHC 33.3 D, RDW Std Deviation 53.0 H, RDW Coeff of Josue 14.6, Plt Count 244, MPV 10.4, Immature Gran % (Auto) 0.400, Neut % (Auto) 80.5 H, Lymph % (Auto) 13.0 L, Bates % (Auto) 5.8, Eos % (Auto) 0.1, Baso % (Auto) 0.2, Absolute Neuts (auto) 13.0 H, Absolute Lymphs (auto) 2.10, Nucleated RBC % 0 Current Medications Acetaminophen (Acetaminophen 325 Mg Tablet) 650 mg PO Q6H PRN PRN PRN Reason: Pain 1-10 or Fever Last Admin: 04/05/20 06:21 Dose: 650 mg Documented by: Albuterol Sulfate (Albuterol 2.5 Mg/3 Ml Vial.Neb.) 2.5 mg INHALATION Q2H PRN PRN PRN Reason: Dyspnea, wheezing Albuterol/Ipratropium (Ipratropium/Albuterol Sulfate 3 Ml Ampul.Neb) 3 ml INHALATION Q4HWA.RT [facility] Last Admin: 04/05/20 07:08 Dose: 3 ml Documented by: Amlodipine Besylate (Amlodipine 5 Mg Tablet) 5 mg PO DAILY [facility] Last Admin: 04/04/20 15:21 Dose: 5 mg Documented by: Aspirin (Aspirin 81 Mg Tab.Chew) 81 mg PO DAILY@0800 [facility] Enoxaparin Sodium (Enoxaparin 30 Mg/0.3 Ml Syringe) 30 mg SC DAILY@0600 [facility] Last Admin: 04/05/20 06:21 Dose: 30 mg Documented by: Famotidine (Famotidine 20 Mg Tablet) 20 mg PO DAILY [facility] Fluoxetine HCl (Fluoxetine 20 Mg Capsule) 20 mg PO DAILY [facility] Folic Acid (Folic Acid 1 Mg Tablet) 1 mg PO DAILY@0800 [facility] Stop: 04/05/20 08:01 Hydralazine HCl (Hydralazine 20 Mg/Ml Vial) 10 mg IV Q4H PRN PRN PRN Reason: SBP > 160 Last Admin: 04/04/20 13:14 Dose: 10 mg Documented by: Piperacillin Sod/Tazobactam (Sod 3.375 gm/ Sodium Chloride) 50 mls @ 12.5 mls/hr IV Q8 [facility] Last Admin: 04/05/20 06:22 Dose: 12.5 mls/hr Documented by: Sodium Chloride () 250 mls @ 15 mls/hr IV .[id number] PRN PRN Reason: Saline Flush Last Infusion: 04/05/20 01:01 Dose: 15 mls/hr Documented by: Sodium Chloride () 250 mls @ 15 mls/hr IV .[id number] PRN PRN Reason: Additional IVPB Infusion Last Infusion: 04/04/20 19:30 Dose: Infused Documented by: Levothyroxine Sodium (Levothyroxine 25 Mcg Tablet) 25 mcg PO DAILY@0600 [facility] Last Admin: 04/05/20 06:21 Dose: 25 mcg Documented by: Lorazepam (Lorazepam 1 Mg Tablet) 2 mg PO Q2H PRN PRN; Protocol PRN Reason: CIWA score > 8 but <15 Lorazepam (Lorazepam 1 Mg Tablet) 2 mg PO UD PRN; Protocol PRN Reason: CIWA score >/=15. Lorazepam (Lorazepam 2 Mg/Ml Syringe) 2 mg IV Q2H PRN PRN; Protocol PRN Reason: CIWA score > 8 but <15 Lorazepam (Lorazepam 2 Mg/Ml Syringe) 2 mg IV UD PRN; Protocol PRN Reason: CIWA score >/=15. Multivitamins/Minerals (Multivitamins,Ther W-Minerals Tablet) [facility] Admin: 04/04/20 09:20 Dose: 1 tablet Documented by: Nicotine (Nicotine 21 Mg Patch) 21 mg TD DAILY [facility] Last Admin: 04/04/20 09:20 Dose: 21 mg Documented by: Senna/Docusate Sodium (Senna/Docusate Sodium 1 Tablet) 2 tablet PO BID [facility] Last Admin: 04/04/20 20:45 Dose: Not Given Documented by: Sodium Chloride (Sodium Cl For Inhalation 15 Ml Vial.Neb.) 5 ml INHALATION Q5M PRN PRN Reason: Suctioning Sodium Chloride (0.9% Saline Lock 10 Ml Syringe) 10 - 40 ml IV UD PRN PRN Reason: SALINE FLUSH Last Admin: 04/04/20 13:07 Dose: 10 ml Documented by: Thiamine HCl (Thiamine Hydrochloride 100 Mg Tablet) [facility] Stop: 04/05/20 17:01 Last Admin: 04/04/20 16:57 Dose: 100 mg Documented by: Medical Necessity - Tobacco Use Smoking Status: Current every day smoker Tobacco Use: Cigarettes Assessment/Plan All Active Problems Sepsis (Acute) Respiratory failure with hypoxia and hypercapnia (Acute) Pneumonia (Acute) Flash pulmonary edema (Acute) Opiate overdose (Acute) Cardiac arrest (Acute) CORNELIUS (acute kidney injury) (Acute) Elevated LFTs (Acute) This 64-year-old patient female admitted with shortness of breath, apnea, hypoxia with drug paraphernalia resulting into acute combined respiratory failure and then intubation. She is a chronic alcohol and opioid use and dependence/polysubstance dependency. 1. Acute combined respiratory failure mostly secondary to polysubstance use with possible aspiration/pneumococcal pneumonia: Patient is extubated in the morning. Urinary antigen positive for strep pneumonia. Blood culture showed coagulase-negative staph. Respiratory panel rapid SARS-CoV-2 antigen negative. On 2 L of oxygen. On IV Zosyn and vancomycin but seems preliminary blood culture shows staph is coagulase-negative therefore does not need vancomycin. 04/05: Has almost resolved. Only on 1 L of oxygen. 2. Chronic alcohol use, chronic opioid/polysubstance use including methamphetamine, amphetamine, cannabinoids with chronic alcoholic/polysubstance use hepatitis: Patient takes sixpack of beer daily as per the daughter. On admission, EtOH was negative. Transaminases AST more than ALT elevated; improving. Total bili normal. Serum albumin low. 04/05: Patient having opioid withdrawal syndrome. Started on buprenorphine based protocol order set along with other supportive medications. Patient on amlodipine for hypertension. 3. Acute kidney injury with rhabdomyolysis: Total CK 1742. Continue IV fluid. Repeat CK level. BUN/creatinine elevated. 49/1.61. Patient chest x-ray was reviewed which previously showed vascular congestion hand bilateral pneumonia. Repeat chest x-ray has cleared. Lasix is discontinued. Will consult nephrology. 04/05: Seen by dialysis equipment technician. Unknown whether patient has CKD at baseline. Last creatinine from March 2016 was 0.9. Possible cardiorenal syndrome patient has severe pulmonary hypertension, RVSP 76 mmHg. Creatinine kinase improved to 97. 4. Acute encephalopathy from polysubstance use: Resolved. Patient is talking coherent and is alert awake oriented x3. 5. Cardiac arrest, PEA status post CPR mostly secondary to polysubstance use with elevated troponin, severe pulmonary hypertension: Mechanical Laboratory Technician is consulted. The echo was reported below. Mild right ventricular failure, chronic diastolic heart failure, mild MR Mild to moderate TR. Interpretation Summary Left ventricular systolic function is hyperdynamic. The estimated ejection fraction is 75 %. Severe assymetric septal hypertrophy. Mildly dilated right ventricle. Mild global right ventricular systolic dysfunction. There is mild mitral annular calcification. Extension of the mitral annular calcification onto the base of the posterior mitral valve leaflet. Mild (1+) mitral valve insufficiency. Mild to moderate (1-2+) tricuspid valve insufficiency. Right ventricular systolic pressure estimated to be 76 mmHg c/w severe pulmonary hypertension. Transmitral doppler flow suggestive of impaired relaxation of left ventricle Other comorbidities include hypertension, dyslipidemia, anxiety and depression, and hypothyroidism: VTE prophylaxis: Lovenox 30 mg subcu daily. CODE STATUS: Full code. Patient status is changed to PCU. Total time of the visit including total time spent in counseling or coordination of care, (more than 50% of the total time, spent in obtaining medical info rmation from nurses and other ancillary care providers,explaining to the patient about labs, imaging, diagnosis and management), discussion with industry consultant, review of labs and imaging is 30 minutes. Microbiology Past 72 Hours 04/03/20 02:30 Sputum, Induced/Lukens Gram Stain - Final 04/03/20 02:30 Sputum, Induced/Lukens Respiratory Culture - Preliminary Streptococcus pneumoniae Haemophilus influenzae Staphylococcus aureus 04/03/20 00:16 Blood Culture (Wb) - Left Hand Blood Culture - Preliminary No growth in 48 hours. 04/03/20 00:10 Blood Culture (Wb) - Neck Bacteria Detection (PCR) - Final Coag Negative Staph 04/03/20 00:10 Blood Culture (Wb) - Neck Blood Culture - Preliminary Coag Negative Staph 04/03/20 07:35 Mucosa - Nose SARS-CoV-2 Antigen (Rapid) - Final 04/03/20 02:30 Mucosa - Nose Respiratory Panel (PCR) - Final 04/03/20 00:08 Urine Catheter - Catheter Legionella Antigen - Final 04/03/20 00:08 Urine Catheter - Catheter Streptococcus pneumoniae Antigen (M - Final Streptococcus pneumonia Ag Clinical Impression(s) from Imaging Studies Chest X-Ray 04/03/20 00:00 IMPRESSION: Support tubes in their expected locations. Mild vascular congestion and/or bilateral pneumonia. Electronically Signed: Raad Farrell MD at 1:14 EST , Service support , Chest X-Ray 04/03/20 05:55 IMPRESSION: Resolving vascular congestion. Enteric tube tip at the gastric cardia. Consider repositioning tube. Endotracheal tube in its expected location. Electronically Signed: Raad Farrell MD at 6:51 EST , Service support , KUB X-Ray 04/03/20 10:45 IMPRESSION: Enteric tube extends to the left upper abdomen/gastric fundus. Electronically Signed: Tj Shepherd MD ([place]) at 11:24 EST , Service support , KUB X-Ray 04/03/20 11:11 IMPRESSION: Enteric tube extends to the left upper abdomen/gastric fundus. Electronically Signed: Tj Shepherd MD ([place]) at 11:25 EST , Service support , Brain CT 04/03/20 23:54 IMPRESSION: Normal unenhanced CT scan of the brain. Electronically Signed: Raad Farrell MD at 1:45 EST , Service support , Inpatient E&M: [id number] Subs Hosp L3
[2020-04-05] MEDS: Thiamine Hydrochloride 100 MG Tablet PO ×2 (10:26→17:56)
[2020-04-05] MEDS: Folic Acid 1 MG Tablet PO (10:26)
[2020-04-05] MEDS: FLUoxetine 20 MG Capsule PO ×2 (10:27)
[2020-04-05] MEDS: Famotidine 20 MG Tablet PO (10:27)
[2020-04-05] MEDS: Multivitamins,Ther W-Minerals Tablet 1 TABLET GT (10:27)
[2020-04-05] MEDS: Aspirin 81 MG TAB.CHEW PO (10:28)
[2020-04-05] MEDS: Senna/Docusate Sodium 1 Tablet 2 TABLET PO (10:29)
[2020-04-05] MEDS: amLODIPine 5 MG Tablet PO (10:33)
[2020-04-05] MEDS: Methocarbamol 750 MG Tablet 1500 MG PO (10:35)
[2020-04-05] MEDS: LORazepam 2 MG/ML Syringe IV (12:55)
[2020-04-05] MEDS: 0.9% Saline Lock 10 ML Syringe IV ×2 (12:57→12:58)
[2020-04-05] MEDS: Potassium Chloride Oral Tablet 20 MEQ PO (13:38)
[2020-04-05] MEDS: Metoprolol Tartrate 50 MG Tablet PO ×2 (13:38→22:25)
--- NOTE | 2020-04-05 13:58 | PCM.HP.ID ---
Problem List (1) Pneumonia Status: Acute Qualifiers: Pneumonia type: due to unspecified organism Laterality: unspecified laterality Lung location: unspecified part of lung Qualified Code(s): J18.9 - Pneumonia, unspecified organism Reason for Consult: pneumonia Consulted by: Dr. Raymundo History of Present Illness: The patient is a 64 year old F presented 04/03 after being found down. She does not recall what happened. Had a week or so of fever, cough, purulent sputum, dyspnea, not feeling well. Does snort meth and opiates. Does not use needles or share straws. Taken to ED, admitted to icu on vent, given vanc/zosyn. Now off vent, breathing better, no fever overnight. Full ROS performed and neg except as noted above. - Medical History Past Medical History (Chronic Problems): Chronic Problems Tobacco use (Chronic) HTN (hypertension) (Chronic) HLD (hyperlipidemia) (Chronic) Anxiety and depression (Chronic) Opiate abuse, continuous (Chronic) Alcohol abuse (Chronic) Allergies/Adverse Reactions: Allergies No Known Allergies Allergy (Verified 01/21/17 17:53) Home Medications: Ambulatory Orders Medication Instructions Recorded Amlodipine [Norvasc] 5 mg PO DAILY #30 tab 01/24/17 Amox/Clavulanate Tablet [Augmentin 875 mg PO Q12H #14 tab 01/24/17 Tablet] Fluoxetine [Prozac] 20 mg PO DAILY #30 cap 01/24/17 Folic Acid 1 mg PO DAILY@0800 #30 tab 01/24/17 Levothyroxine [Synthroid] 25 mcg PO DAILY@0600 #30 tab 01/24/17 Metoprolol Tartrate [Lopressor 50 mg PO BID #90 tab 01/24/17 (beta esha)] Nicotine [Nicoderm Cq (PBKC)] 21 mg TRANSDERM. DAILY #42 patch 01/24/17 Potassium Chloride Oral Tablet 20 meq PO DAILY #30 tab 01/24/17 [K-Dur] Thiamine Hydrochloride [Vitamin B1] 100 mg PO DAILYCM #30 tab 01/24/17 - Social History Tobacco Use: cigarettes Vital Signs Temp Pulse Resp BP Pulse Ox 98.0 F 84 20 H 164/88 H 99 04/05/20 02:00 04/05/20 13:38 04/05/20 11:05 04/05/20 02:00 04/05/20 07:06 Oxygen Flow Rate (L/min) 1 Oxygen Delivery Method Nasal Cannula Weight: 58.287 kg Body Mass Index (BMI) 26.4 Finger Stick Blood Glucose 77 Microbiology Past 72 Hours 04/03/20 02:30 Gram Stain - Final Sputum, Induced/Lukens Respiratory Culture - Preliminary Streptococcus pneumoniae Haemophilus influenzae Staphylococcus aureus 04/03/20 00:16 Blood Culture - Preliminary Blood Culture (Wb) - Left Hand No growth in 48 hours. 04/03/20 00:10 Bacteria Detection (PCR) - Final Blood Culture (Wb) - Neck Coag Negative Staph Blood Culture - Preliminary Coag Negative Staph 04/03/20 07:35 SARS-CoV-2 Antigen (Rapid) - Final Mucosa - Nose 04/03/20 02:30 Respiratory Panel (PCR) - Final Mucosa - Nose 04/03/20 00:08 Legionella Antigen - Final Urine Catheter - Catheter Streptococcus pneumoniae Antigen (M - Final Streptococcus pneumonia Ag - Other Studies Radiology: [] reviewed Other Studies: [] Route of nutrition/ use of supplements: [] Nutritional Intake: [] IV Site: [] Espino Catheter: [] - Physical Exam General: Alert, Oriented x3, Cooperative, No apparent distress HEENT: Atraumatic, PERRLA, EOMI Neck: Supple, No Nodes Lungs: Rhonchi Cardiovascular: Regular rate, Regular Rhythm Abdomen: Soft, Non Tender, Non-Distended Extremities: No edema Skin: No rashes IV Site: Peripheral, without redness Musculoskeletal: No Tenderness to Palpation of Joints or Extremities Neurological: Cranial nerves II-XII grossly intact - Assessment/Plan Antibiotics: [] Assessment/Plan: [] Active and Suspected Problems Sepsis (Acute) Respiratory failure with hypoxia and hypercapnia (Acute) Pneumonia (Acute) Flash pulmonary edema (Acute) Opiate overdose (Acute) Cardiac arrest (Acute) CORNELIUS (acute kidney injury) (Acute) Elevated LFTs (Acute) sepsis due to polymicrobial pneumonia and suspected aspiration - 1 of 2 bcx with CoNS, consistent with contaminant. Sputum cx with strep pneumo, h. flu, and staph aureus. Much improved, vanc stopped 04/04. MRSA screen neg. Will cont vanc pending final susceptibility testing. LFTs improved. opiate and meth use - hiv and hep panel neg. Denies IVDU. Will follow, thank you
[2020-04-05 14:03] LABS: Absolute Lymphocyte Count 1.67 X10^3/uL (0.83-4.51); Absolute Neutrophil Count 10.1 X10^3/uL (2.0-7.7); Basophil# 0.04 X10^3/uL; Basophil% 0.3 % (0-1); Eosinophil# 0.04 X10^3/uL; Eosinophils% 0.3 % (0-5); Hematocrit 43.4 % (37-47); Hemoglobin 13.8 g/dL (12.0-15.0); Lymphocyte # 1.67 X10^3/ul (4.0); Lymphocyte % 13.3 % (19-41); Mean Corp Hgb Conc 31.8 g/dL (32-36); Mean Corpuscular Hgb 31.7 pg (27.0-32.0); Mean Corpuscular Volume 99.8 fL (81-99); Mean Platelet Vol. 9.6 fl (6.2-12.0); Monocyte# 0.74 X10^3/uL; Monocyte% 5.9 % (0-10); NRBC Flagged by Analyzer 0 % (0-5); Neutrophil # 10.07 X10^3/uL (2.7-7.7); Platelet Count 233 K/mm3 (150-450); RBC Distribution Width CV 14.3 % (11.6-14.6); RBC Distribution Width SD 52.3 fl (35.1-43.9); Red Blood Count 4.35 M/mm3 (4.2-5.4); White Blood Count 12.6 K/mm3 (4.4-11.0)
--- NOTE | 2020-04-05 14:19 | PCM.PN.REN ---
Patient Problems: Active and Suspected Problems Sepsis (Acute) Respiratory failure with hypoxia and hypercapnia (Acute) Pneumonia (Acute) Flash pulmonary edema (Acute) Opiate overdose (Acute) Cardiac arrest (Acute) CORNELIUS (acute kidney injury) (Acute) Elevated LFTs (Acute) Subjective: No complaints. No N/V/SOB - Physical Exam Vitals/I&O's: Vital Signs Temp Pulse Resp BP Pulse Ox 98.0 F 84 20 H 164/88 H 99 04/05/20 02:00 04/05/20 13:38 04/05/20 11:05 04/05/20 02:00 04/05/20 07:06 Oxygen Flow Rate (L/min) 1 Oxygen Delivery Method Nasal Cannula Weight: 58.287 kg Body Mass Index (BMI) 26.4 Finger Stick Blood Glucose 77 Intake and Output for Last 24 Hours 04/03/20 04/04/20 04/05/20 23:59 23:59 23:59 Intake Total 3073.14 / 3083.14 2678.15 / 2678.15 146.25 / 146.25 Output Total 5050 / 5050 1225 / 1225 350 / 350 Balance -1976.86 / -1966.86 1453.15 / 1453.15 -203.75 / -203.75 General: Alert, Oriented x3 HEENT: Atraumatic Oral: Moist Mucosa Neck: Supple, No JVD Lungs: Clear to auscultation, Normal air movement, No rhonchi, No wheeze Cardiovascular: Regular rate, Regular Rhythm, Normal S1, Normal S2 Abdomen: Bowel Sounds Present, Soft, Non Tender, Non-Distended Extremities: No clubbing, No cyanosis, No edema Skin: No rashes Musculoskeletal: No Tenderness to Palpation of Joints or Extremities Lymphatic: No Cervical, Supraclavicular, or Inguinal Adenopathy Neurological: Cranial nerves II-XII grossly intact, Neuro grossly intact Psych/Mental Status: Appropriate Microbiology Past 72 Hours 04/03/20 02:30 Sputum, Induced/Lukens Gram Stain - Final 04/03/20 02:30 Sputum, Induced/Lukens Respiratory Culture - Preliminary Streptococcus pneumoniae Haemophilus influenzae Staphylococcus aureus 04/03/20 00:16 Blood Culture (Wb) - Left Hand Blood Culture - Preliminary No growth in 48 hours. 04/03/20 00:10 Blood Culture (Wb) - Neck Bacteria Detection (PCR) - Final Coag Negative Staph 04/03/20 00:10 Blood Culture (Wb) - Neck Blood Culture - Preliminary Coag Negative Staph 04/03/20 07:35 Mucosa - Nose SARS-CoV-2 Antigen (Rapid) - Final 04/03/20 02:30 Mucosa - Nose Respiratory Panel (PCR) - Final 04/03/20 00:08 Urine Catheter - Catheter Legionella Antigen - Final 04/03/20 00:08 Urine Catheter - Catheter Streptococcus pneumoniae Antigen (M - Final Streptococcus pneumonia Ag Laboratory Results 04/05/20 13:40: WBC 12.6 H, RBC 4.35, Hgb 13.8, Hct 43.4, MCV 99.8 H, MCH 31.7, MCHC 31.8 L, RDW Std Deviation 52.3 H, RDW Coeff of Josue 14.3, Plt Count 233, MPV 9.6, Immature Gran % (Auto) 0.200, Neut % (Auto) 80.0 H, Lymph % (Auto) 13.3 L, Davidson % (Auto) 5.9, Eos % (Auto) 0.3, Baso % (Auto) 0.3, Absolute Neuts (auto) 10.1 H, Absolute Lymphs (auto) 1.67, Nucleated RBC % 0 04/05/20 13:40: Sodium Pending, Potassium Pending, Chloride Pending, Carbon Dioxide Pending, Anion Gap Pending, BUN Pending, Creatinine Pending, Est GFR (MDRD) Af Amer Pending, Est GFR (MDRD) Non-Af Pending, BUN/Creatinine Ratio Pending, Glucose Pending, Calcium Pending, Total Bilirubin Pending, AST Pending, ALT Pending, Alkaline Phosphatase Pending, Total Protein Pending, Albumin Pending Current Medications Acetaminophen (Acetaminophen 325 Mg Tablet) 650 mg PO Q6H PRN PRN PRN Reason: Pain 1-10 or Fever Last Admin: 04/05/20 06:21 Dose: 650 mg Documented by: Al Hydroxide/Mg Hydroxide (Mag Hydrox/Al Hydrox/Simeth 30 Ml Udc) 30 ml PO Q6H PRN PRN PRN Reason: dyspesia Albuterol Sulfate (Albuterol 2.5 Mg/3 Ml Vial.Neb.) 2.5 mg INHALATION Q2H PRN PRN PRN Reason: Dyspnea, wheezing Albuterol/Ipratropium (Ipratropium/Albuterol Sulfate 3 Ml Ampul.Neb) 3 ml INHALATION Q4HWA.RT [facility] Last Admin: 04/05/20 11:05 Dose: 3 ml Documented by: Amlodipine Besylate (Amlodipine 5 Mg Tablet) 5 mg PO DAILY [facility] Last Admin: 04/05/20 10:33 Dose: 5 mg Documented by: Aspirin (Aspirin 81 Mg Tab.Chew) 81 mg PO DAILY@0800 [facility] Last Admin: 04/05/20 10:28 Dose: 81 mg Documented by: Bisacodyl (Bisacodyl 10 Mg Suppository) 10 mg RC DAILY PRN PRN Reason: Constipation Buprenorphine HCl (Buprenorphine Hcl 2 Mg Tab.Subl) 0 mg SL Q8H [facility]; Taper Stop: 04/08/20 08:44 Clonidine (Clonidine Hcl 0.1 Mg Tablet) 0.1 mg PO Q8H PRN PRN PRN Reason: RESTLESSNESS Dicyclomine HCl (Dicyclomine 10 Mg Capsule) 20 mg PO Q6H PRN PRN PRN Reason: Abdominal Discomfort Enoxaparin Sodium (Enoxaparin 30 Mg/0.3 Ml Syringe) 30 mg SC DAILY@0600 [facility] Last Admin: 04/05/20 06:21 Dose: 30 mg Documented by: Famotidine (Famotidine 20 Mg Tablet) 20 mg PO DAILY [facility] Last Admin: 04/05/20 10:27 Dose: 20 mg Documented by: Fluoxetine HCl (Fluoxetine 20 Mg Capsule) 20 mg PO DAILY [facility] Last Admin: 04/05/20 10:27 Dose: 20 mg Documented by: Gabapentin (Gabapentin 300 Mg Capsule) 300 mg PO Q8H PRN PRN PRN Reason: moderate to severe anxiety Hydralazine HCl (Hydralazine 20 Mg/Ml Vial) 10 mg IV Q4H PRN PRN PRN Reason: SBP > 160 Last Admin: 04/04/20 13:14 Dose: 10 mg Documented by: Hydroxyzine Pamoate (Hydroxyzine Carrol 25 Mg Capsule) 50 mg PO Q6H PRN PRN PRN Reason: mild anxiety Piperacillin Sod/Tazobactam (Sod 3.375 gm/ Sodium Chloride) 50 mls @ 12.5 mls/hr IV Q8 [facility] Last Infusion: 04/05/20 10:33 Dose: Infused Documented by: Sodium Chloride () 250 mls @ 15 mls/hr IV .[id number] PRN PRN Reason: Saline Flush Last Infusion: 04/05/20 12:00 Dose: Infused Documented by: Sodium Chloride () 250 mls @ 15 mls/hr IV .[id number] PRN PRN Reason: Additional IVPB Infusion Last Infusion: 04/04/20 19:30 Dose: Infused Documented by: Vancomycin IV Pharmacy to Dose (1 ea/ Sodium Chloride) 500 mls @ 250 mls/hr IV X1 PRN; Protocol PRN Reason: Rx to Dose Levothyroxine Sodium (Levothyroxine 25 Mcg Tablet) 25 mcg PO DAILY@0600 [facility] Last Admin: 04/05/20 06:21 Dose: 25 mcg Documented by: Loperamide HCl (Loperamide 2 Mg Capsule) 2 mg PO Q4H PRN PRN PRN Reason: LOOSE STOOLS Lorazepam (Lorazepam 1 Mg Tablet) 2 mg PO Q2H PRN PRN; Protocol PRN Reason: CIWA score > 8 but <15 Lorazepam (Lorazepam 1 Mg Tablet) 2 mg PO UD PRN; Protocol PRN Reason: CIWA score >/=15. Lorazepam (Lorazepam 2 Mg/Ml Syringe) 2 mg IV Q2H PRN PRN; Protocol PRN Reason: CIWA score > 8 but <15 Last Admin: 04/05/20 12:55 Dose: 2 mg Documented by: Lorazepam (Lorazepam 2 Mg/Ml Syringe) 2 mg IV UD PRN; Protocol PRN Reason: CIWA score >/=15. Methocarbamol (Methocarbamol 750 Mg Tablet) 1,500 mg PO Q6H PRN PRN PRN Reason: MUSCLE SPASM Last Admin: 04/05/20 10:35 Dose: 1,500 mg Documented by: Metoprolol Tartrate (Metoprolol Tartrate 50 Mg Tablet) 50 mg PO BID [facility] Last Admin: 04/05/20 13:38 Dose: 50 mg Documented by: Multivitamins/Minerals (Multivitamins,Ther [facility]Minerals [facility]) [facility] Admin: 04/05/20 10:27 Dose: 1 tablet Documented by: Nicotine (Nicotine 21 Mg Patch) 21 mg TD DAILY [facility] Last Admin: 04/05/20 10:32 Dose: 21 mg Documented by: Ondansetron HCl (Ondansetron 8 Mg Tablet) 8 mg PO Q8H PRN PRN PRN Reason: NAUSEA Potassium Chloride (Potassium Chloride Oral Tablet 20 Meq) 20 meq PO DAILY [facility] Last Admin: 04/05/20 13:38 Dose: 20 meq Documented by: Senna (Senna Tablet) 2 tablet PO QHS PRN PRN Reason: Constipation Senna/Docusate Sodium (Senna/Docusate Sodium 1 Tablet) 2 tablet PO BID [facility] Last Admin: 04/05/20 10:29 Dose: 2 tablet Documented by: Sodium Chloride (Sodium Cl For Inhalation 15 Ml Vial.Neb.) 5 ml INHALATION Q5M PRN PRN Reason: Suctioning Sodium Chloride (0.9% Saline Lock 10 Ml Syringe) 10 - 40 ml IV UD PRN PRN Reason: SALINE FLUSH Last Admin: 04/05/20 12:58 Dose: 10 ml Documented by: Thiamine HCl (Thiamine Hydrochloride 100 Mg Tablet) [facility] Stop: 04/05/20 17:01 Last Admin: 04/05/20 10:26 Dose: 100 mg Documented by: Trazodone HCl (Trazodone 100 Mg Tablet) 100 mg PO QHS PRN PRN PRN Reason: INSOMNIA Medical Necessity - Tobacco Use Smoking Status: Current every day smoker Tobacco Use: Cigarettes Assessment/Plan All Active Problems Sepsis (Acute) Respiratory failure with hypoxia and hypercapnia (Acute) Pneumonia (Acute) Flash pulmonary edema (Acute) Opiate overdose (Acute) Cardiac arrest (Acute) CORNELIUS (acute kidney injury) (Acute) Elevated LFTs (Acute) 1- Acute kidney injury. Unknown if the patient has CKD at baseline. last Cr from 2017 was 0.9 mg/dl UA showed 100 protein. Patient has severe pulmonary HTN along with reduce R ventricle systolic function. Patient could have CRS contributing to CORNELIUS/CKD CORNELIUS could be hemodynamic from CPA and overdiuresis Cr is 1.6 mg/dl on 04/04. No lab today. ordered it Agree with holding diuretics for now. VS has been stable Keep MAP > 65 No need for PANTOGRAPH [employer]TER Check RFP in am 2- Acute hypoxic RF from aspiration pneumonia. CHF could be contributing too Improved. extubated. continue pneumonia treatment as you are doing Hold lasix for now due to CORNELIUS 3- HTN: BP is above the target from opiate withdrawal Continue Norvasc. received lopressor On hydralazine PRN 4- Opiate and polysubstance over dose. Better. s/p Narcan administration Depression and anxiety management as per the primary service Renal team will continue to follow Please call if any question or concern at [phone] Jens Shen MD
[2020-04-05 14:25] LABS: ALB/GLOB Ratio 0.8 RATIO (0.9-2.4); AST(SGOT) 45 U/L (15-37); Alanine Aminotransfer ALT/SGPT 105 U/L (13-56); Albumin, Serum 3.1 g/dL (3.2-5.0); Alkaline Phosphatase 90 U/L (45-117); Anion Gap 9 (5-15); BUN 21 mg/dL (7-18); BUN/Creat Ratio 23.6 RATIO (10-20); Calcium,Total 9.2 mg/dL (8.5-10.1); Chloride 106 mmol/L (98-107); Creatinine, Serum 0.89 mg/dL (0.55-1.02); EST Glomerular Filtration Rate 68 mL/min (>60); Est Glom Filt Rate - Afr Amer 83 mL/min (>60); Estimated Creatinine Clearance 46.47 ml/min; Glucose 97 mg/dL (74-106); Potassium 3.2 mmol/L (3.5-5.1); Protein, Total 7.1 g/dL (6.4-8.2); Sodium Level 138 mmol/L (136-145)
[2020-04-05] MEDS: Vancomycin IV 1,000 MG/200 ML BAG 200 MG IV (16:31)
--- NOTE | 2020-04-05 16:59 | PCM.RX.CS ---
Consult Pharmacy has been consulted to manage selected antiobiotic: Vancomycin Type of Consult: New start Suspected Infection: Sepsis Labs: Sodium 138 mmol/L (136-145) 04/05/20 13:40 Potassium 3.2 mmol/L (3.5-5.1) L 04/05/20 13:40 Chloride 106 mmol/L (98-107) 04/05/20 13:40 Carbon Dioxide 23.0 mmol/L (21.0-32.0) 04/05/20 13:40 Anion Gap 9 (5-15) 04/05/20 13:40 BUN 21 mg/dL (7-18) H 04/05/20 13:40 Creatinine 0.89 mg/dL (0.55-1.02) 04/05/20 13:40 Est GFR (MDRD) Af Amer 83 mL/min (>60) 04/05/20 13:40 Est GFR (MDRD) Non-Af 68 mL/min (>60) 04/05/20 13:40 BUN/Creatinine Ratio 23.6 RATIO (10-20) H 04/05/20 13:40 Glucose 97 mg/dL (74-106) 04/05/20 13:40 Microbiology: Microbiology 04/03/20 02:30 Sputum, Induced/Lukens Gram Stain - Final 04/03/20 02:30 Sputum, Induced/Lukens Respiratory Culture - Preliminary Streptococcus pneumoniae Haemophilus influenzae Staphylococcus aureus 04/03/20 00:16 Blood Culture (Wb) - Left Hand Blood Culture - Preliminary No growth in 48 hours. 04/03/20 00:10 Blood Culture (Wb) - Neck Bacteria Detection (PCR) - Final Coag Negative Staph 04/03/20 00:10 Blood Culture (Wb) - Neck Blood Culture - Preliminary Coag Negative Staph 04/03/20 07:35 Mucosa - Nose SARS-CoV-2 Antigen (Rapid) - Final 04/03/20 02:30 Mucosa - Nose Respiratory Panel (PCR) - Final 04/03/20 00:08 Urine Catheter - Catheter Legionella Antigen - Final 04/03/20 00:08 Urine Catheter - Catheter Streptococcus pneumoniae Antigen (M - Final Streptococcus pneumonia Ag Goal Trough: 15-20 mcg/mL Pharmacy Plan for Drug Dosing: NEW START IV VANCOMYCIN Consulting Physician: Ronny Indication: Sepsis/Pneumonia Goal Trough: 15-20 SrCr: 0.89 CrCl: 51.7 ml/min Comments: pt was started on Vancomycin 04/03/20, and received at 1500mg x1 dose. The Vancomycin was discontinued on 04/04/20 before any further doses were received. Vancomcyin Dose: pt to receive a 1000mg x1 dose, then a continuing dose of 500mg q12h (at 04,16). Pending Level: 04/07/20 at 0330 Pharmacy Service will continue to monitor and adjust dosing as required. Follow-Up Labs: Trough Vancomycin - 04/07 at 0330
[2020-04-05] MEDS: Loperamide 2 MG Capsule PO (21:27)
[2020-04-05] MEDS: Buprenorphine HCl 2 MG TAB.SUBL SL (22:11)
[2020-04-05] MEDS: LORazepam 1 MG Tablet 2 MG PO (22:40)
[2020-04-05] MEDS: traZODone 100 MG Tablet PO (23:28)
[2020-04-06] VITALS (16 sets, daily range): BP systolic 130–175; BP diastolic 67–102; PULSE 64–85; RESP 15–19; TEMP 36.7–37.1; O2SAT 3–98
[2020-04-06] MEDS: LORazepam 1 MG Tablet 2 MG PO ×2 (02:08→04:23)
[2020-04-06] MEDS: 0.9% Saline Lock 10 ML Syringe IV ×2 (02:09→07:13)
[2020-04-06] MEDS: Acetaminophen 325 MG Tablet 650 MG PO ×2 (04:23→21:08)
[2020-04-06] MEDS: hydrOXYzine PAM 25 MG Capsule 50 MG PO ×2 (04:28→21:08)
[2020-04-06] MEDS: Albuterol 2.5 MG/3 ML VIAL.NEB. INHALATION (04:34)
[2020-04-06] MEDS: Buprenorphine HCl 2 MG TAB.SUBL SL ×3 (05:02→21:08)
[2020-04-06] MEDS: Enoxaparin 30 MG/0.3 ML Syringe SC (05:04)
[2020-04-06] MEDS: Levothyroxine 25 MCG TABLET PO (05:04)
[2020-04-06] MEDS: Vancomycin IV 500 MG/100 ML BAG 100 MG IV (06:12)
--- NOTE | 2020-04-06 06:16 | RAD_ITS ---
STUDY: X-RAY CHEST REASON FOR EXAM: Female, 64 years old. Dyspnea TECHNIQUE: Single AP portable view of the chest. COMPARISON: 04/03/2020 FINDINGS: Interval removal of endotracheal tube and nasogastric tube. The lungs are clear and expanded. There is no demonstrated pleural abnormality. Normal size heart. Normal mediastinum and santiago. Normal visualized pulmonary arteries. Normal visualized aortic arch and descending thoracic aorta. Normal visualized thoracic spine. Normal visualized ribs, clavicles, and shoulders. There is no demonstrated abnormality of the visualized soft tissue structures of the upper abdomen. RAD/Chest 1 View (Portable) IMPRESSION: 1. Interval removal of endotracheal tube and nasogastric tube. 2. No active disease. Electronically Signed: Allen Goncalves MD at 6:50 EST Tel , Service support ,
[2020-04-06] MEDS: Ipratropium/Albuterol Sulfate 3 ML AMPUL.NEB INHALATION ×3 (06:43→18:57)
[2020-04-06] MEDS: Potassium Chloride Oral Tablet 20 MEQ 40 MEQ PO (07:13)
[2020-04-06 07:18] LABS: Absolute Lymphocyte Count 2.69 X10^3/uL (0.83-4.51); Absolute Neutrophil Count 9.6 X10^3/uL (2.0-7.7); Basophil# 0.06 X10^3/uL; Basophil% 0.4 % (0-1); Eosinophil# 0.13 X10^3/uL; Hematocrit 40.5 % (37-47); Hemoglobin 13.1 g/dL (12.0-15.0); Lymphocyte # 2.69 X10^3/ul (4.0); Lymphocyte % 19.9 % (19-41); Mean Corp Hgb Conc 32.3 g/dL (32-36); Mean Corpuscular Volume 98.8 fL (81-99); Mean Platelet Vol. 9.6 fl (6.2-12.0); Monocyte# 1.01 X10^3/uL; Monocyte% 7.5 % (0-10); NRBC Flagged by Analyzer 0 % (0-5); Neutrophil # 9.62 X10^3/uL (2.7-7.7); Neutrophil % 70.9 % (47-70); Platelet Count 248 K/mm3 (150-450); RBC Distribution Width CV 14.2 % (11.6-14.6); RBC Distribution Width SD 51.8 fl (35.1-43.9); White Blood Count 13.6 K/mm3 (4.4-11.0)
[2020-04-06 07:57] LABS: ALB/GLOB Ratio 0.9 RATIO (0.9-2.4); AST(SGOT) 28 U/L (15-37); Alanine Aminotransfer ALT/SGPT 81 U/L (13-56); Alkaline Phosphatase 91 U/L (45-117); Anion Gap 10 (5-15); BUN 27 mg/dL (7-18); BUN/Creat Ratio 29.5 RATIO (10-20); Calcium,Total 9.2 mg/dL (8.5-10.1); Chloride 106 mmol/L (98-107); Creatinine, Serum 0.92 mg/dL (0.55-1.02); EST Glomerular Filtration Rate 66 mL/min (>60); Est Glom Filt Rate - Afr Amer 80 mL/min (>60); Estimated Creatinine Clearance 44.96 ml/min; Globulin 3.2 g/dL (2.2-4.2); Glucose 117 mg/dL (74-106); Magnesium 2.4 mg/dL (1.6-2.6); Phosphorus 2.4 mg/dL (2.5-4.9); Potassium 3.5 mmol/L (3.5-5.1); Protein, Total 6.2 g/dL (6.4-8.2); Sodium Level 139 mmol/L (136-145)
[2020-04-06] MEDS: amLODIPine 5 MG Tablet PO (09:37)
[2020-04-06] MEDS: Famotidine 20 MG Tablet PO (09:38)
[2020-04-06] MEDS: Metoprolol Tartrate 50 MG Tablet PO ×2 (09:38→21:07)
[2020-04-06] MEDS: Multivitamins,Ther W-Minerals Tablet 1 TABLET GT (09:38)
[2020-04-06] MEDS: Aspirin 81 MG TAB.CHEW PO (09:39)
[2020-04-06] MEDS: FLUoxetine 20 MG Capsule PO (09:40)
--- NOTE | 2020-04-06 11:23 | PN_ITS ---
Patient Problems: Active and Suspected Problems Sepsis (Acute) Respiratory failure with hypoxia and hypercapnia (Acute) Pneumonia (Acute) Flash pulmonary edema (Acute) Opiate overdose (Acute) Cardiac arrest (Acute) CORNELIUS (acute kidney injury) (Acute) Elevated LFTs (Acute) Reason for Visit: Follow-up for substance use, acute hypoxic and hypercarbic respiratory failure status post extubation Objective: As per nursing staff, patient was trying to sign AMA last night. Currently she is very drowsy and lethargic. She had Subutex 4 mg sublingual. Blood pressure 145/81. No fever. T-max 99.5 on 04/04. On 2 L of oxygen. Physical exam General: Drowsy, lethargic, disoriented. HEENT: Atraumatic, PERRLA, EOMI, Normocephalic Oral: No Gingival or Mucosal Lesions/ Ulcerations Neck: Supple, No JVD, Negative Carotid Bruits Lungs: Air entry diminished in bilateral lung bases. No crepitation/rhonchi Cardiovascular: Regular rate, Regular Rhythm, Normal S1, Normal S2, No murmurs Abdomen: Bowel Sounds Present, Soft, Non Tender, Non-Distended : No renal angle tenderness. No suprapubic tenderness. Extremities: No edema, Capillary Refill Less than 3 Seconds Skin: No rashes, No breakdown Musculoskeletal: No Tenderness to Palpation of Joints or Extremities Neurological: Cranial nerves II-XII grossly intact, Deep Tendon Reflexes 2+/4 and Symmetrical, Neuro grossly intact Psych/Mental Status: Disoriented. Vitals/I&O's: Vital Signs Temp Pulse Resp BP Pulse Ox 98.7 F 78 16 145/81 H 95 04/06/20 07:36 04/06/20 09:59 04/06/20 07:36 04/06/20 07:36 04/06/20 07:36 Oxygen Flow Rate (L/min) 2 Oxygen Delivery Method Nasal Cannula Weight: 131 lb 9.855 oz Body Mass Index (BMI) 26.4 Finger Stick Blood Glucose 77 Intake and Output for Last 24 Hours 04/04/20 04/05/20 04/06/20 23:59 23:59 23:59 Intake Total 2678.15 / 2678.15 876.25 / 876.25 195.42 / 195.42 Output Total 1225 / 1225 650 / 650 Balance 1453.15 / 1453.15 226.25 / 226.25 195.42 / 195.42 Microbiology Past 72 Hours 04/03/20 02:30 Sputum, Induced/Lukens Gram Stain - Final 04/03/20 02:30 Sputum, Induced/Lukens Respiratory Culture - Final Streptococcus pneumoniae Haemophilus influenzae Staphylococcus aureus 04/03/20 00:16 Blood Culture (Wb) - Left Hand Blood Culture - Preliminary No growth in 48 hours. 04/03/20 00:10 Blood Culture (Wb) - Neck Bacteria Detection (PCR) - Final Coag Negative Staph 04/03/20 00:10 Blood Culture (Wb) - Neck Blood Culture - Preliminary Coag Negative Staph 04/03/20 07:35 Mucosa - Nose SARS-CoV-2 Antigen (Rapid) - Final Laboratory Results 04/05/20 13:40: WBC 12.6 H, RBC 4.35, Hgb 13.8, Hct 43.4, MCV 99.8 H, MCH 31.7, MCHC 31.8 L, RDW Std Deviation 52.3 H, RDW Coeff of Josue 14.3, Plt Count 233, MPV 9.6, Immature Gran % (Auto) 0.200, Neut % (Auto) 80.0 H, Lymph % (Auto) 13.3 L, Wilkin % (Auto) 5.9, Eos % (Auto) 0.3, Baso % (Auto) 0.3, Absolute Neuts (auto) 10.1 H, Absolute Lymphs (auto) 1.67, Nucleated RBC % 0 04/05/20 13:40: Sodium 138, Potassium 3.2 L, Chloride 106, Carbon Dioxide 23.0, Anion Gap 9, BUN 21 H, Creatinine 0.89, Estim Creat Clear Calc 46.47, Est GFR (MDRD) Af Amer 83, Est GFR (MDRD) Non-Af 68, BUN/Creatinine Ratio 23.6 H, Glucose 97, Calcium 9.2, Total Bilirubin 1.10 H, AST 45 H, ALT 105 H, Alkaline Phosphatase 90, Total Protein 7.1, Albumin 3.1 L, Globulin 4.0, Albumin/Globulin Ratio 0.8 L 04/06/20 07:03: WBC 13.6 H, RBC 4.10 L, Hgb 13.1, Hct 40.5, MCV 98.8, MCH 32.0, MCHC 32.3, RDW Std Deviation 51.8 H, RDW Coeff of Josue 14.2, Plt Count 248, MPV 9.6, Immature Gran % (Auto) 0.300, Neut % (Auto) 70.9 H, Lymph % (Auto) 19.9, Wilkin % (Auto) 7.5, Eos % (Auto) 1.0, Baso % (Auto) 0.4, Absolute Neuts (auto) 9.6 H, Absolute Lymphs (auto) 2.69, Nucleated RBC % 0 04/06/20 07:03: Sodium 139, Potassium 3.5, Chloride 106, Carbon Dioxide 23.0, Anion Gap 10, BUN 27 H, Creatinine 0.92, Estim Creat Clear Calc 44.96, Est GFR (MDRD) Af Amer 80, Est GFR (MDRD) Non-Af 66, BUN/Creatinine Ratio 29.5 H, Glucose 117 H, Calcium 9.2, Phosphorus 2.4 L, Magnesium 2.4, Total Bilirubin 0.60, AST 28, ALT 81 H, Alkaline Phosphatase 91, Total Protein 6.2 L, Albumin 3.0 L, Globulin 3.2, Albumin/Globulin Ratio 0.9 Current Medications Acetaminophen (Acetaminophen 325 Mg Tablet) 650 mg PO Q6H PRN PRN PRN Reason: Pain 1-10 or Fever Last Admin: 04/06/20 04:23 Dose: 650 mg Documented by: Al Hydroxide/Mg Hydroxide (Mag Hydrox/Al Hydrox/Simeth 30 Ml Udc) 30 ml PO Q6H PRN PRN PRN Reason: dyspesia Albuterol Sulfate (Albuterol 2.5 Mg/3 Ml Vial.Neb.) 2.5 mg INHALATION Q2H PRN PRN PRN Reason: Dyspnea, wheezing Last Admin: 04/06/20 04:34 Dose: 2.5 mg Documented by: Albuterol/Ipratropium (Ipratropium/Albuterol Sulfate 3 Ml Ampul.Neb) 3 ml INHALATION Q4HWA.RT SHARDA Last Admin: 04/06/20 10:40 Dose: 3 ml Documented by: Amlodipine Besylate (Amlodipine 5 Mg Tablet) 5 mg PO DAILY SHAR[facility] Last Admin: 04/06/20 09:37 Dose: 5 mg Documented by: Aspirin (Aspirin 81 Mg Tab.Chew) 81 mg PO DAILY@0800 [facility] Last Admin: 04/06/20 09:39 Dose: 81 mg Documented by: Bisacodyl (Bisacodyl 10 Mg Suppository) 10 mg RC DAILY PRN PRN Reason: Constipation Buprenorphine HCl (Buprenorphine Hcl 2 Mg Tab.Subl) 4 mg SL Q8H [facility]; Taper Stop: 04/08/20 21:59 Last Admin: 04/06/20 05:02 Dose: 4 mg Documented by: Clonidine (Clonidine Hcl 0.1 Mg Tablet) 0.1 mg PO Q8H PRN PRN PRN Reason: RESTLESSNESS Dicyclomine HCl (Dicyclomine 10 Mg Capsule) 20 mg PO Q6H PRN PRN PRN Reason: Abdominal Discomfort Enoxaparin Sodium (Enoxaparin 30 Mg/0.3 Ml Syringe) 30 mg SC DAILY@0600 [facility] Last Admin: 04/06/20 05:04 Dose: 30 mg Documented by: Famotidine (Famotidine 20 Mg Tablet) 20 mg PO DAILY [facility] Last Admin: 04/06/20 09:38 Dose: 20 mg Documented by: Fluoxetine HCl (Fluoxetine 20 Mg Capsule) 20 mg PO DAILY [facility] Last Admin: 04/06/20 09:40 Dose: 20 mg Documented by: Gabapentin (Gabapentin 300 Mg Capsule) 300 mg PO Q8H PRN PRN PRN Reason: moderate to severe anxiety Hydralazine HCl (Hydralazine 20 Mg/Ml Vial) 10 mg IV Q4H PRN PRN PRN Reason: SBP > 160 Last Admin: 04/04/20 13:14 Dose: 10 mg Documented by: Hydroxyzine Pamoate (Hydroxyzine Carrol 25 Mg Capsule) 50 mg PO Q6H PRN PRN PRN Reason: mild anxiety Last Admin: 04/06/20 04:28 Dose: 50 mg Documented by: Sodium Chloride () 250 mls @ 15 mls/hr IV .[id number] PRN PRN Reason: Saline Flush Last Infusion: 04/05/20 12:00 Dose: Infused Documented by: Sodium Chloride () 250 mls @ 15 mls/hr IV .[id number] PRN PRN Reason: Additional IVPB Infusion Last Infusion: 04/04/20 19:30 Dose: Infused Documented by: Ampicillin Sodium/Sulbactam (Sodium 3 gm/ Sodium Chloride) 112 mls @ 150 mls/hr IV Q8 [facility] Levothyroxine Sodium (Levothyroxine 25 Mcg Tablet) 25 mcg PO DAILY@0600 [facility] Last Admin: 04/06/20 05:04 Dose: 25 mcg Documented by: Loperamide HCl (Loperamide 2 Mg Capsule) 2 mg PO Q4H PRN PRN PRN Reason: LOOSE STOOLS Last Admin: 04/05/20 21:27 Dose: 2 mg Documented by: Lorazepam (Lorazepam 1 Mg Tablet) 2 mg PO Q2H PRN PRN; Protocol PRN Reason: CIWA score > 8 but <15 Lorazepam (Lorazepam 1 Mg Tablet) 2 mg PO UD PRN; Protocol PRN Reason: CIWA score >/=15. Last Admin: 04/06/20 04:23 Dose: 2 mg Documented by: Lorazepam (Lorazepam 2 Mg/Ml Syringe) 2 mg IV Q2H PRN PRN; Protocol PRN Reason: CIWA score > 8 but <15 Last Admin: 04/05/20 12:55 Dose: 2 mg Documented by: Lorazepam (Lorazepam 2 Mg/Ml Syringe) 2 mg IV UD PRN; Protocol PRN Reason: CIWA score >/=15. Methocarbamol (Methocarbamol 750 Mg Tablet) 1,500 mg PO Q6H PRN PRN PRN Reason: MUSCLE SPASM Last Admin: 04/05/20 10:35 Dose: 1,500 mg Documented by: Metoprolol Tartrate (Metoprolol Tartrate 50 Mg Tablet) 50 mg PO BID [facility] Last Admin: 04/06/20 09:38 Dose: 50 mg Documented by: Multivitamins/Minerals (Multivitamins,Ther W-Minerals Tablet) [facility] Last Admin: 04/06/20 09:38 Dose: 1 tablet Documented by: Nicotine (Nicotine 21 Mg Patch) 21 mg TD DAILY [facility] Last Admin: 04/06/20 09:40 Dose: 21 mg Documented by: Ondansetron HCl (Ondansetron 8 Mg Tablet) 8 mg PO Q8H PRN PRN PRN Reason: NAUSEA Potassium Chloride (Potassium Chloride Oral Tablet 20 Meq) 20 meq PO DAILY [facility] Last Admin: 04/06/20 09:49 Dose: Not Given Documented by: Senna (Senna Tablet) 2 tablet PO QHS PRN PRN Reason: Constipation Senna/Docusate Sodium (Senna/Docusate Sodium 1 Tablet) 2 tablet PO BID [facility] Last Admin: 04/06/20 09:47 Dose: Not Given Documented by: Sodium Chloride (Sodium Cl For Inhalation 15 Ml Vial.Neb.) 5 ml INHALATION Q5M PRN PRN Reason: Suctioning Sodium Chloride (0.9% Saline Lock 10 Ml Syringe) 10 - 40 ml IV UD PRN PRN Reason: SALINE FLUSH Last Admin: 04/06/20 07:13 Dose: 10 ml Documented by: Trazodone HCl (Trazodone 100 Mg Tablet) 100 mg PO QHS PRN PRN PRN Reason: INSOMNIA Last Admin: 04/05/20 23:28 Dose: 100 mg Documented by: STROKE Vital Signs/Narrative: Vital Signs Temp Pulse Resp BP Pulse Ox 04/06/20 09:59 78 04/06/20 09:38 80 04/06/20 07:46 80 04/06/20 07:36 98.7 F 77 16 145/81 H 95 Medical Necessity - Tobacco Use Smoking Status: Current every day smoker Tobacco Use: Cigarettes Assessment/Plan All Active Problems Sepsis (Acute) Respiratory failure with hypoxia and hypercapnia (Acute) Pneumonia (Acute) Flash pulmonary edema (Acute) Opiate overdose (Acute) Cardiac arrest (Acute) CORNELIUS (acute kidney injury) (Acute) Elevated LFTs (Acute) This 64-year-old patient female admitted with shortness of breath, apnea, hypoxia with drug paraphernalia resulting into acute combined respiratory failure and then intubation. She is a chronic alcohol and opioid use and dependence/polysubstance dependency. 1. Acute combined respiratory failure mostly secondary to polysubstance use with possible aspiration/pneumococcal pneumonia: Patient is extubated in the morning. Urinary antigen positive for strep pneumonia. Blood culture showed coagulase-negative staph. Respiratory panel rapid SARS-CoV-2 antigen negative. On 2 L of oxygen. On IV Zosyn and vancomycin but seems preliminary blood culture shows staph is coagulase-negative therefore does not need vancomycin. 04/05: Has almost resolved. Only on 1 L of oxygen. 04/06: On 2 L of oxygen 2. Chronic alcohol use, chronic opioid/polysubstance use including methamphetamine, amphetamine, cannabinoids with chronic alcoholic/polysubstance use hepatitis: Patient takes sixpack of beer daily as per the daughter. On admission, EtOH was negative. Transaminases AST more than ALT elevated; improving. Total bili normal. Serum albumin low. 04/05: Patient having opioid withdrawal syndrome. Started on buprenorphine based protocol order set along with other supportive medications. Patient on amlodipine for hypertension. 04/06: Patient still drowsy and lethargic after buprenorphine 4 mg sublingual. Advised to lower 2 mg sublingual when COWS score more than 8 3. Acute kidney injury with rhabdomyolysis, prerenal: Total CK 1742. Continue IV fluid. Repeat CK level. BUN/creatinine elevated. 49/1.61. Patient chest x-ray was reviewed which previously showed vascular congestion hand bilateral pneumonia. Repeat chest x-ray has cleared. Lasix is discontinued. Will consult nephrology. 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 Unknown whether patient has CKD at baseline. Last creatinine from March 2016 was 0.9. Possible cardiorenal syndrome, patient has severe pulmonary hypertension, RVSP 76 mmHg. Creatinine kinase improved to 297. 04/06: CORNELIUS resolved. BUN 27. 4. Acute encephalopathy from polysubstance use: Resolved. Patient is talking coherent and is alert awake oriented x3. 04/06 patient encephalopathy, lethargic and disoriented 5. Cardiac arrest, PEA status post CPR mostly secondary to polysubstance use with elevated troponin, severe pulmonary hypertension: Dive Superintendent is consulted. The echo was reported below. Mild right ventricular failure, chronic diastolic heart failure, mild MR Mild to moderate TR. Interpretation Summary Left ventricular systolic function is hyperdynamic. The estimated ejection fraction is 75 %. Severe assymetric septal hypertrophy. Mildly dilated right ventricle. Mild global right ventricular systolic dysfunction. There is mild mitral annular calcification. Extension of the mitral annular calcification onto the base of the posterior mitral valve leaflet. Mild (1+) mitral valve insufficiency. Mild to moderate (1-2+) tricuspid valve insufficiency. Right ventricular systolic pressure estimated to be 76 mmHg c/w severe pulmonary hypertension. Transmitral doppler flow suggestive of impaired relaxation of left ventricle Other comorbidities include hypertension, dyslipidemia, anxiety and depression, and hypothyroidism: VTE prophylaxis: Lovenox 30 mg subcu daily. CODE STATUS: Full code. Patient status is changed to PCU. Total time of the visit including total time spent in counseling or coordination of care, (more than 50% of the total time, spent in obtaining medical information from nurses and other ancillary care providers,explaining to the patient about labs, imaging, diagnosis and management), discussion with cisco consultant, review of labs and imaging is 30 minutes. Clinical Impression(s) from Imaging Studies Chest X-Ray 04/03/20 00:00 IMPRESSION: Support tubes in their expected locations. Mild vascular congestion and/or bilateral pneumonia. Electronically Signed: Raad Farrell MD at 1:14 EST , Service support , Chest X-Ray 04/03/20 05:55 IMPRESSION: Resolving vascular congestion. Enteric tube tip at the gastric cardia. Consider repositioning tube. Endotracheal tube in its expected location. Electronically Signed: Raad Farrell MD at 6:51 EST , Service support , KUB X-Ray 04/03/20 10:45 IMPRESSION: Enteric tube extends to the left upper abdomen/gastric fundus. Electronically Signed: Tj Shepherd MD ([place]) at 11:24 EST , Service support , KUB X-Ray 04/03/20 11:11 IMPRESSION: Enteric tube extends to the left upper abdomen/gastric fundus. Electronically Signed: Tj Shepherd MD ([place]) at 11:25 EST , Service support , Brain CT 04/03/20 23:54 IMPRESSION: Normal unenhanced CT scan of the brain. Electronically Signed: Raad Farrell MD at 1:45 EST , Service support , Inpatient E&M: [id number] Subs Hosp L2
[2020-04-06] MEDS: Amox/Clavulanate 875 MG Tablet PO ×2 (12:22→16:58)
[2020-04-06] MEDS: Dicyclomine 10 MG Capsule 20 MG PO (13:51)
[2020-04-06] MEDS: cloNIDine HCl 0.1 MG Tablet PO (13:51)
--- NOTE | 2020-04-06 15:59 | NURSING ---
Pt rouses easily when her name is called, and opens eyes and looks at nurse. Blind partially opened.
--- NOTE | 2020-04-06 17:15 | PN.RENAL_ITS ---
Patient Problems: Active and Suspected Problems Sepsis (Acute) Respiratory failure with hypoxia and hypercapnia (Acute) Pneumonia (Acute) Flash pulmonary edema (Acute) Opiate overdose (Acute) Cardiac arrest (Acute) CORNELIUS (acute kidney injury) (Acute) Elevated LFTs (Acute) Subjective: no new events - Physical Exam Vitals/I&O's: Vital Signs Temp Pulse Resp BP Pulse Ox 98.1 F 85 18 156/85 H 3 04/06/20 13:44 04/06/20 15:30 04/06/20 15:30 04/06/20 15:30 04/06/20 15:30 Oxygen Flow Rate (L/min) 3 Oxygen Delivery Method Nasal Cannula Weight: 59.7 kg Body Mass Index (BMI) 26.4 Finger Stick Blood Glucose 77 Intake and Output for Last 24 Hours 04/04/20 04/05/20 04/06/20 23:59 23:59 23:59 Intake Total 2678.15 / 2678.15 876.25 / 876.25 195.42 / 195.42 Output Total 1225 / 1225 650 / 650 Balance 1453.15 / 1453.15 226.25 / 226.25 195.42 / 195.42 General: Alert, Oriented x3, Cooperative HEENT: Atraumatic, PERRLA, EOMI, Normocephalic Neck: Supple, No JVD, Negative Carotid Bruits Lungs: Clear to auscultation, Normal air movement Cardiovascular: Regular rate, No murmurs Abdomen: Bowel Sounds Present, Soft, Non Tender Extremities: No edema, Capillary Refill Less than 3 Seconds Skin: No rashes, No breakdown Musculoskeletal: No Tenderness to Palpation of Joints or Extremities Neurological: Cranial nerves II-XII grossly intact Psych/Mental Status: Normal Affect, Appropriate Microbiology Past 72 Hours 04/03/20 02:30 Sputum, Induced/Lukens Gram Stain - Final 04/03/20 02:30 Sputum, Induced/Lukens Respiratory Culture - Final Streptococcus pneumoniae Haemophilus influenzae Staphylococcus aureus 04/03/20 00:16 Blood Culture (Wb) - Left Hand Blood Culture - Preliminary No growth in 48 hours. 04/03/20 00:10 Blood Culture (Wb) - Neck Bacteria Detection (PCR) - Final Coag Negative Staph 04/03/20 00:10 Blood Culture (Wb) - Neck Blood Culture - Preliminary Coag Negative Staph Laboratory Results 04/06/20 07:03: WBC 13.6 H, RBC 4.10 L, Hgb 13.1, Hct 40.5, MCV 98.8, MCH 32.0, MCHC 32.3, RDW Std Deviation 51.8 H, RDW Coeff of Josue 14.2, Plt Count 248, MPV 9.6, Immature Gran % (Auto) 0.300, Neut % (Auto) 70.9 H, Lymph % (Auto) 19.9, Fannin % (Auto) 7.5, Eos % (Auto) 1.0, Baso % (Auto) 0.4, Absolute Neuts (auto) 9.6 H, Absolute Lymphs (auto) 2.69, Nucleated RBC % 0 04/06/20 07:03: Sodium 139, Potassium 3.5, Chloride 106, Carbon Dioxide 23.0, Anion Gap 10, BUN 27 H, Creatinine 0.92, Estim Creat Clear Calc 44.96, Est GFR (MDRD) Af Amer 80, Est GFR (MDRD) Non-Af 66, BUN/Creatinine Ratio 29.5 H, Glucose 117 H, Calcium 9.2, Phosphorus 2.4 L, Magnesium 2.4, Total Bilirubin 0.60, AST 28, ALT 81 H, Alkaline Phosphatase 91, Total Protein 6.2 L, Albumin 3.0 L, Globulin 3.2, Albumin/Globulin Ratio 0.9 Current Medications Acetaminophen (Acetaminophen 325 Mg Tablet) 650 mg PO Q6H PRN PRN PRN Reason: Pain 1-10 or Fever Last Admin: 04/06/20 04:23 Dose: 650 mg Documented by: Al Hydroxide/Mg Hydroxide (Mag Hydrox/Al Hydrox/Simeth 30 Ml Udc) 30 ml PO Q6H PRN PRN PRN Reason: dyspesia Albuterol Sulfate (Albuterol 2.5 Mg/3 Ml Vial.Neb.) 2.5 mg INHALATION Q2H PRN PRN PRN Reason: Dyspnea, wheezing Last Admin: 04/06/20 04:34 Dose: 2.5 mg Documented by: Albuterol/Ipratropium (Ipratropium/Albuterol Sulfate 3 Ml Ampul.Neb) 3 ml INHALATION Q4HWA.RT SHARDA Last Admin: 04/06/20 10:40 Dose: 3 ml Documented by: Amlodipine Besylate (Amlodipine 5 Mg Tablet) 5 mg PO DAILY [facility] Last Admin: 04/06/20 09:37 Dose: 5 mg Documented by: Amoxicillin/Clavulanate Potassium (Amox/Clavulanate 875 Mg Tablet) 875 mg PO BIDCM [facility] Last Admin: 04/06/20 16:58 Dose: 875 mg Documented by: Aspirin (Aspirin 81 Mg Tab.Chew) 81 mg PO DAILY@0800 [facility] Last Admin: 04/06/20 09:39 Dose: 81 mg Documented by: Bisacodyl (Bisacodyl 10 Mg Suppository) 10 mg RC DAILY PRN PRN Reason: Constipation Buprenorphine HCl (Buprenorphine Hcl 2 Mg Tab.Subl) 4 mg SL Q8H [facility]; Taper Stop: 04/08/20 21:59 Last Admin: 04/06/20 13:52 Dose: 4 mg Documented by: Clonidine (Clonidine Hcl 0.1 Mg Tablet) 0.1 mg PO Q8H PRN PRN PRN Reason: RESTLESSNESS Last Admin: 04/06/20 13:51 Dose: 0.1 mg Documented by: Dicyclomine HCl (Dicyclomine 10 Mg Capsule) 20 mg PO Q6H PRN PRN PRN Reason: Abdominal Discomfort Last Admin: 04/06/20 13:51 Dose: 20 mg Documented by: Enoxaparin Sodium (Enoxaparin 30 Mg/0.3 Ml Syringe) 30 mg SC DAILY@0600 [facility] Last Admin: 04/06/20 05:04 Dose: 30 mg Documented by: Famotidine (Famotidine 20 Mg Tablet) 20 mg PO DAILY [facility] Last Admin: 04/06/20 09:38 Dose: 20 mg Documented by: Fluoxetine HCl (Fluoxetine 20 Mg Capsule) 20 mg PO DAILY [facility] Last Admin: 04/06/20 09:40 Dose: 20 mg Documented by: Gabapentin (Gabapentin 300 Mg Capsule) 300 mg PO Q8H PRN PRN PRN Reason: moderate to severe anxiety Hydralazine HCl (Hydralazine 20 Mg/Ml Vial) 10 mg IV Q4H PRN PRN PRN Reason: SBP > 160 Last Admin: 04/04/20 13:14 Dose: 10 mg Documented by: Hydroxyzine Pamoate (Hydroxyzine Carrol 25 Mg Capsule) 50 mg PO Q6H PRN PRN PRN Reason: mild anxiety Last Admin: 04/06/20 04:28 Dose: 50 mg Documented by: Sodium Chloride () 250 mls @ 15 mls/hr IV .[id number] PRN PRN Reason: Saline Flush Last Infusion: 04/05/20 12:00 Dose: Infused Documented by: Sodium Chloride () 250 mls @ 15 mls/hr IV .[id number] PRN PRN Reason: Additional IVPB Infusion Last Infusion: 04/04/20 19:30 Dose: Infused Documented by: Levothyroxine Sodium (Levothyroxine 25 Mcg Tablet) 25 mcg PO DAILY@0600 [facility] Last Admin: 04/06/20 05:04 Dose: 25 mcg Documented by: Loperamide HCl (Loperamide 2 Mg Capsule) 2 mg PO Q4H PRN PRN PRN Reason: LOOSE STOOLS Last Admin: 04/05/20 21:27 Dose: 2 mg Documented by: Lorazepam (Lorazepam 1 Mg Tablet) 2 mg PO Q2H PRN PRN; Protocol PRN Reason: CIWA score > 8 but <15 Lorazepam (Lorazepam 1 Mg Tablet) 2 mg PO UD PRN; Protocol PRN Reason: CIWA score >/=15. Last Admin: 04/06/20 04:23 Dose: 2 mg Documented by: Lorazepam (Lorazepam 2 Mg/Ml Syringe) 2 mg IV Q2H PRN PRN; Protocol PRN Reason: CIWA score > 8 but <15 Last Admin: 04/05/20 12:55 Dose: 2 mg Documented by: Lorazepam (Lorazepam 2 Mg/Ml Syringe) 2 mg IV UD PRN; Protocol PRN Reason: CIWA score >/=15. Methocarbamol (Methocarbamol 750 Mg Tablet) 1,500 mg PO Q6H PRN PRN PRN Reason: MUSCLE SPASM Last Admin: 04/05/20 10:35 Dose: 1,500 mg Documented by: Metoprolol Tartrate (Metoprolol Tartrate 50 Mg Tablet) 50 mg PO BID [facility] Last Admin: 04/06/20 09:38 Dose: 50 mg Documented by: Multivitamins/Minerals (Multivitamins,Ther W-Minerals Tablet) [facility] Last Admin: 04/06/20 09:38 Dose: 1 tablet Documented by: Nicotine (Nicotine 21 Mg Patch) 21 mg TD DAILY [facility] Last Admin: 04/06/20 09:40 Dose: 21 mg Documented by: Ondansetron HCl (Ondansetron 8 Mg Tablet) 8 mg PO Q8H PRN PRN PRN Reason: NAUSEA Potassium Chloride (Potassium Chloride Oral Tablet 20 Meq) 40 meq PO DAILY@0800 [facility] Senna (Senna Tablet) 2 tablet PO QHS PRN PRN Reason: Constipation Senna/Docusate Sodium (Senna/Docusate Sodium 1 Tablet) 2 tablet PO BID [facility] Last Admin: 04/06/20 09:47 Dose: Not Given Documented by: Sodium Chloride (Sodium Cl For Inhalation 15 Ml Vial.Neb.) 5 ml INHALATION Q5M PRN PRN Reason: Suctioning Sodium Chloride (0.9% Saline Lock 10 Ml Syringe) 10 - 40 ml IV UD PRN PRN Reason: SALINE FLUSH Last Admin: 04/06/20 07:13 Dose: 10 ml Documented by: Trazodone HCl (Trazodone 100 Mg Tablet) 100 mg PO QHS PRN PRN PRN Reason: INSOMNIA Last Admin: 04/05/20 23:28 Dose: 100 mg Documented by: Medical Necessity - Tobacco Use Smoking Status: Current every day smoker Tobacco Use: Cigarettes Assessment/Plan All Active Problems Sepsis (Acute) Respiratory failure with hypoxia and hypercapnia (Acute) Pneumonia (Acute) Flash pulmonary edema (Acute) Opiate overdose (Acute) Cardiac arrest (Acute) CORNELIUS (acute kidney injury) (Acute) Elevated LFTs (Acute) 1- Acute kidney injury. Unknown if the patient has CKD at baseline. last Cr from 2017 was 0.9 mg/dl UA showed 100 protein. Patient has severe pulmonary HTN along with reduce R ventricle systolic function. Patient could have CRS contributing to CONRELIUS/CKD CORNELIUS could be hemodynamic from CPA and overdiuresis cr is normal now 2- Acute hypoxic RF from aspiration pneumonia. CHF could be contributing too Improved. extubated.
[2020-04-06] MEDS: Methocarbamol 750 MG Tablet 1500 MG PO (21:07)
[2020-04-06] MEDS: Senna/Docusate Sodium 1 Tablet 2 TABLET PO (21:07)
[2020-04-06] MEDS: traZODone 100 MG Tablet PO (21:08)
[2020-04-07] VITALS (9 sets, daily range): BP systolic 116–140; BP diastolic 62–71; PULSE 58–73; RESP 17–20; TEMP 36.6–36.9; O2SAT 92–98
[2020-04-07] MEDS: Methocarbamol 750 MG Tablet 1500 MG PO ×2 (03:35→10:03)
[2020-04-07] MEDS: Acetaminophen 325 MG Tablet 650 MG PO ×2 (03:35→10:08)
[2020-04-07] MEDS: hydrOXYzine PAM 25 MG Capsule 50 MG PO (03:35)
[2020-04-07 03:51] LABS: Absolute Lymphocyte Count 3.67 X10^3/uL (0.83-4.51); Absolute Neutrophil Count 5.5 X10^3/uL (2.0-7.7); Basophil# 0.05 X10^3/uL; Basophil% 0.5 % (0-1); Eosinophil# 0.29 X10^3/uL; Eosinophils% 2.8 % (0-5); Hematocrit 41.7 % (37-47); Hemoglobin 13.1 g/dL (12.0-15.0); Lymphocyte # 3.67 X10^3/ul (4.0); Lymphocyte % 35.4 % (19-41); Mean Corp Hgb Conc 31.4 g/dL (32-36); Mean Corpuscular Hgb 31.6 pg (27.0-32.0); Mean Corpuscular Volume 100.7 fL (81-99); Mean Platelet Vol. 9.5 fl (6.2-12.0); Monocyte# 0.84 X10^3/uL; Monocyte% 8.1 % (0-10); NRBC Flagged by Analyzer 0 % (0-5); Neutrophil # 5.49 X10^3/uL (2.7-7.7); Neutrophil % 52.9 % (47-70); Platelet Count 268 K/mm3 (150-450); RBC Distribution Width CV 14.2 % (11.6-14.6); RBC Distribution Width SD 52.6 fl (35.1-43.9); Red Blood Count 4.14 M/mm3 (4.2-5.4); White Blood Count 10.4 K/mm3 (4.4-11.0)
[2020-04-07 04:33] LABS: ALB/GLOB Ratio 0.7 RATIO (0.9-2.4); AST(SGOT) 23 U/L (15-37); Alanine Aminotransfer ALT/SGPT 63 U/L (13-56); Albumin, Serum 2.7 g/dL (3.2-5.0); Alkaline Phosphatase 81 U/L (45-117); Anion Gap 8 (5-15); BUN 21 mg/dL (7-18); BUN/Creat Ratio 22.9 RATIO (10-20); Calcium,Total 9.3 mg/dL (8.5-10.1); Chloride 108 mmol/L (98-107); Creatinine, Serum 0.92 mg/dL (0.55-1.02); EST Glomerular Filtration Rate 66 mL/min (>60); Est Glom Filt Rate - Afr Amer 80 mL/min (>60); Estimated Creatinine Clearance 44.96 ml/min; Globulin 3.7 g/dL (2.2-4.2); Glucose 96 mg/dL (74-106); Protein, Total 6.4 g/dL (6.4-8.2); Sodium Level 140 mmol/L (136-145)
[2020-04-07 04:34] LABS: Vancomycin, Trough Level 8.7 ug/mL (5.0-15.0)
--- NOTE | 2020-04-07 04:46 | EKG12_ITS ---
Test Reason : CP Blood Pressure : / mmHG Vent. Rate : 069 BPM Atrial Rate : 069 BPM P-R Int : 160 ms QRS Dur : 088 ms QT Int : 432 ms P-R-T Axes : 033 075 036 degrees QTc Int : 462 ms Normal sinus rhythm Normal ECG When compared with ECG of 03-APR-2020 05:01, Nonspecific T wave abnormality no longer evident in Lateral leads Confirmed by MAYA FARRAR, PAPITO ([id number]), web editor ROBERT BA ([id number]) on 04/09/2020 1:06:39 PM Referred By: DARY Confirmed By:PAPITO TREJO MD
[2020-04-07] MEDS: Levothyroxine 25 MCG TABLET PO (05:03)
[2020-04-07] MEDS: Enoxaparin 30 MG/0.3 ML Syringe SC (05:03)
[2020-04-07] MEDS: Gabapentin 300 MG Capsule PO (05:03)
[2020-04-07] MEDS: Buprenorphine HCl 2 MG TAB.SUBL SL (05:04)
[2020-04-07] MEDS: Multivitamins,Ther W-Minerals Tablet 1 TABLET GT (08:21)
[2020-04-07] MEDS: Potassium Chloride Oral Tablet 20 MEQ 40 MEQ PO (08:21)
[2020-04-07] MEDS: Aspirin 81 MG TAB.CHEW PO (08:21)
--- NOTE | 2020-04-07 09:41 | DCINST_ITS ---
- Discharge Diagnoses Current Active Problems: Current Active and Chronic Problems Sepsis (Acute) Respiratory failure with hypoxia and hypercapnia (Acute) Pneumonia (Acute) Flash pulmonary edema (Acute) Opiate overdose (Acute) Cardiac arrest (Acute) CORNELIUS (acute kidney injury) (Acute) Elevated LFTs (Acute) Tobacco use (Chronic) HTN (hypertension) (Chronic) HLD (hyperlipidemia) (Chronic) Anxiety and depression (Chronic) Opiate abuse, continuous (Chronic) Alcohol abuse (Chronic) You will use the following diet at home:: Cardiac Your food should be the consistency of: Regular Discharge Activity: May Not Drive Weight Bearing Status: Weight bearing as tolerated Call your doctor if you observe: Fever of 101 or Higher, Coldness, Increased Pain, Numbness or Tingling, Change in Color, Inability to urinate, Inability to have a bowel movement, Using more than one pad per hour, Shortness of breath, Dizziness, Fainting spells, Swelling in the ankles, Chest pain, Prolonged hiccoughing, Increased palpitations (irregular heartbeat), Calf discomfort, Uncontrolled pain Additional Instructions: Follow-up 180 for outpatient opioid drug rehab Allergies/Adverse Reactions: Allergies No Known Allergies Allergy (Verified 01/21/17 17:53) Medications to take at Discharge Amlodipine [Norvasc] 5 mg PO DAILY #30 tab 01/24/17 Fluoxetine [Prozac] 20 mg PO DAILY #30 cap 01/24/17 Levothyroxine [Synthroid] 25 mcg PO DAILY@0600 #30 tab 01/24/17 Potassium Chloride Oral Tablet [K-Dur] 20 meq PO DAILY #30 tab 01/24/17 Amlodipine [Norvasc] 5 mg PO DAILY #30 tab 04/07/20 Amox/Clavulanate Tablet [Augmentin Tablet] 875 mg PO Q12H #10 tab 04/07/20 Aspirin [Aspirin, Baby] 81 mg PO DAILY@0800 #30 tab.chew 04/07/20 Folic Acid 1 mg PO DAILY@0800 #30 tab 04/07/20 Metoprolol Tartrate [Lopressor (beta esha)] 50 mg PO BID #90 tab 04/07/20 Nicotine [Nicoderm Cq] 21 mg TRANSDERM. DAILY #30 patch 04/07/20 Senna/Docusate Sodium [Senokot-S] 2 tab PO BID PRN PRN tab 04/07/20 Thiamine Hydrochloride [Vitamin B1] 100 mg PO DAILYCM #30 tab 04/07/20 The following prescriptions were given: Aspirin [Aspirin, Baby] 81 mg PO DAILY@0800 #30 tab.chew Transmission Status: Pending to [id number] Amox/Clavulanate Tablet [Augmentin Tablet] 875 mg PO Q12H #10 tab Transmission Status: [facility]ending to [id number] Folic Acid 1 mg PO DAILY@0800 #30 tab Transmission Status: Pending to [id number] Nicotine [Nicoderm Cq] 21 mg TRANSDERM. DAILY #30 patch Transmission Status: Pending to [id number] Amlodipine [Norvasc] 5 mg PO DAILY #30 tab Transmission Status: [facility]ending to [id number] Thiamine Hydrochloride [Vitamin B1] 100 mg PO DAILYCM #30 tab Transmission Status: [id number] Primary Care Physician: Care Physician,No Primary [Primary Care Provider] - Please follow up with your Primary Care Physician in: in 2 weeks Test Results: Test results from this visit will be discussed in further detail at your follow- up appointment, if applicable. Please Follow Up With: Orville Walker DO When: in 2 weeks for Pneumonia, PFT Please Follow Up With: Tierra Cervantes MD When: cardiac arrest in 2-4 weeks
--- NOTE | 2020-04-07 09:42 | DS.PCM_ITS ---
Discharge Date and Diagnosis - Problem List Patient Problems: Active and Suspected Problems Sepsis (Acute) Respiratory failure with hypoxia and hypercapnia (Acute) Pneumonia (Acute) Flash pulmonary edema (Acute) Opiate overdose (Acute) Cardiac arrest (Acute) CORNELIUS (acute kidney injury) (Acute) Elevated LFTs (Acute) Date of Admission: 04/03/20 Date of Discharge: 04/06/20 - Primary Discharge Diagnosis Acute Problems: Active Problems Sepsis (Acute) Respiratory failure with hypoxia and hypercapnia (Acute) Pneumonia (Acute) Flash pulmonary edema (Acute) Opiate overdose (Acute) Cardiac arrest (Acute) CORNELIUS (acute kidney injury) (Acute) Elevated LFTs (Acute) - Secondary Discharge Diagnosis Chronic Problems: Chronic Problems Tobacco use (Chronic) HTN (hypertension) (Chronic) HLD (hyperlipidemia) (Chronic) Anxiety and depression (Chronic) Opiate abuse, continuous (Chronic) Alcohol abuse (Chronic) Hospital Course and Treatment Imaging Results: 04/06/20 06:16 CXR [Chest 1 View (Portable)] [RAD] Urgent Operations: None Summary of Care Provided: This 64-year-old patient female admitted with shortness of breath, apnea, hypoxia with drug paraphernalia resulting into acute combined respiratory failure and then intubation. She is a chronic alcohol and opioid use and dependence/polysubstance dependency. 1. Acute combined respiratory failure mostly secondary to polysubstance use with possible aspiration/pneumococcal, Haemophilus influenzae and MSSA pneumonia: Patient is extubated in the morning. Urinary antigen positive for strep pneumonia. Blood culture showed coagulase-negative staph. Respiratory panel rapid SARS-CoV-2 antigen negative. On 2 L of oxygen. On IV Zosyn and vancomycin but seems preliminary blood culture shows staph is coagulase- negative, therefore vancomycin discontinued. ID was consulted. He change the antibiotic to Unasyn and discontinued vancomycin and Zosyn. Final sputum culture shows strep pneumoniae, Haemophilus influenzae and MSSA. Patient had about 5 days of IV antibiotics and discharged on 5 more days of Augmentin to complete a total of 10 days of antibiotics. 2. Chronic alcohol use, chronic opioid/polysubstance use including methamphetamine, amphetamine, cannabinoids with chronic alcoholic/polysubstance use hepatitis: Patient takes sixpack of beer daily as per the daughter. On admission, EtOH was negative. Transaminases AST more than ALT elevated; improving. Total bili normal. Serum albumin low. Patient had severe opioid withdrawal syndrome which was controlled with buprenorphine and other supportive medications. Patient home medication of morphine was discontinued. Advised to follow-up on opioid outpatient rehab 180. 3. Acute kidney injury with rhabdomyolysis, prerenal in etiology: Total CK 1742. Continue IV fluid. Repeat CK level. BUN/creatinine elevated. 49/1.61. Patient chest x-ray was reviewed which previously showed vascular congestion hand bilateral pneumonia. Repeat chest x-ray has cleared. Lasix is discontinued. Upholstery Tech was consulted and was unclear whether patient has CKD at baseline or CORNELIUS but creatinine resolved to normal, creatinine 0.92, therefore retrospectively CORNELIUS. Rhabdomyolysis resolved. There was concern of possible cardiorenal syndrome, as patient has severe pu lmonary hypertension, RVSP 26 with mildly dilated right ventricle. 4. Acute encephalopathy from polysubstance use: Resolved. Patient is talking coherent and is alert awake oriented x3. Resolved. 5. Cardiac arrest, PEA status post CPR mostly secondary to polysubstance use with elevated troponin, severe pulmonary hypertension: Director Hospice Operations is consulted. The echo was reported below. Mild right ventricular failure, chronic diastolic heart failure, mild MR Mild to moderate TR. Interpretation Summary Left ventricular systolic function is hyperdynamic. The estimated ejection fraction is 75 %. Severe assymetric septal hypertrophy. Mildly dilated right ventricle. Mild global right ventricular systolic dysfunction. There is mild mitral annular calcification. Extension of the mitral annular calcification onto the base of the posterior mitral valve leaflet. Mild (1+) mitral valve insufficiency. Mild to moderate (1-2+) tricuspid valve insufficiency. Right ventricular systolic pressure estimated to be 76 mmHg c/w severe pulmonary hypertension. Transmitral doppler flow suggestive of impaired relaxation of left ventricle Other comorbidities include hypertension, dyslipidemia, anxiety and depression, and hypothyroidism: VTE prophylaxis: Lovenox 30 mg subcu daily. CODE STATUS: Full code. Patient status is changed to PCU. Discharge medication reconciliation done. Discharge follow-up instructions completed. Discharge process discussed with the patient and all questions were answered to patient's satisfaction. Total time spent, exact 35 minutes on discharge meds reconciliation, examination, coordination of care with nurses and ancillary staff, review of imaging and blood test and discussion with the patient on follow-up instructions Patient Problems: Active and Suspected Problems Sepsis (Acute) Respiratory failure with hypoxia and hypercapnia (Acute) Pneumonia (Acute) Flash pulmonary edema (Acute) Opiate overdose (Acute) Cardiac arrest (Acute) CORNELIUS (acute kidney injury) (Acute) Elevated LFTs (Acute) Objective: Heart rate and blood pressure in normal range. No hypoxia or tachypnea. Still has mild midsternal chest pain due to CPR Physical exam General: Alert, awake, oriented x3. HEENT: Atraumatic, PERRLA, EOMI, Normocephalic Oral: No Gingival or Mucosal Lesions/ Ulcerations Neck: Supple, No JVD, Negative Carotid Bruits Lungs: Air entry diminished in bilateral lung bases. No crepitation/rhonchi Cardiovascular: Regular rate, Regular Rhythm, Normal S1, Normal S2, No murmurs Abdomen: Bowel Sounds Present, Soft, Non Tender, Non-Distended : No renal angle tenderness. No suprapubic tenderness. Extremities: No edema, Capillary Refill Less than 3 Seconds Skin: No rashes, No breakdown Musculoskeletal: No Tenderness to Palpation of Joints or Extremities Neurological: Cranial nerves II-XII grossly intact, Deep Tendon Reflexes 2+/4 and Symmetrical, Neuro grossly intact Psych/Mental Status: Appropriate - Physical Exam Vitals/I&O's: Vital Signs Temp Pulse Resp BP Pulse Ox 98.7 F 78 16 145/81 H 95 04/06/20 07:36 04/06/20 09:59 04/06/20 07:36 04/06/20 07:36 04/06/20 07:36 Oxygen Flow Rate (L/min) 2 Oxygen Delivery Method Nasal Cannula Weight: 131 lb 9.855 oz Body Mass Index (BMI) 26.4 Finger Stick Blood Glucose 77 Intake and Output for Last 24 Hours 04/04/20 04/05/20 04/06/20 23:59 23:59 23:59 Intake Total 2678.15 / 2678.15 876.25 / 876.25 150.00 / 150.00 Output Total 1225 / 1225 650 / 650 Balance 1453.15 / 1453.15 226.25 / 226.25 150.00 / 150.00 Microbiology Past 72 Hours 04/03/20 02:30 Sputum, Induced/Lukens Gram Stain - Final 04/03/20 02:30 Sputum, Induced/Lukens Respiratory Culture - Final Streptococcus pneumoniae Haemophilus influenzae Staphylococcus aureus 04/03/20 00:16 Blood Culture (Wb) - Left Hand Blood Culture - Preliminary No growth in 48 hours. 04/03/20 00:10 Blood Culture (Wb) - Neck Bacteria Detection (PCR) - Final Coag Negative Staph 04/03/20 00:10 Blood Culture (Wb) - Neck Blood Culture - Preliminary Coag Negative Staph 04/03/20 07:35 Mucosa - Nose SARS-CoV-2 Antigen (Rapid) - Final Laboratory Results 04/05/20 13:40: WBC 12.6 H, RBC 4.35, Hgb 13.8, Hct 43.4, MCV 99.8 H, MCH 31.7, MCHC 31.8 L, RDW Std Deviation 52.3 H, RDW Coeff of Josue 14.3, Plt Count 233, MPV 9.6, Immature Gran % (Auto) 0.200, Neut % (Auto) 80.0 H, Lymph % (Auto) 13.3 L, Bennett % (Auto) 5.9, Eos % (Auto) 0.3, Baso % (Auto) 0.3, Absolute Neuts (auto) 10.1 H, Absolute Lymphs (auto) 1.67, Nucleated RBC % 0 04/05/20 13:40: Sodium 138, Potassium 3.2 L, Chloride 106, Carbon Dioxide 23.0, Anion Gap 9, BUN 21 H, Creatinine 0.89, Estim Creat Clear Calc 46.47, Est GFR (MDRD) Af Amer 83, Est GFR (MDRD) Non-Af 68, BUN/Creatinine Ratio 23.6 H, Glucose 97, Calcium 9.2, Total Bilirubin 1.10 H, AST 45 H, ALT 105 H, Alkaline Phosphatase 90, Total Protein 7.1, Albumin 3.1 L, Globulin 4.0, Albumin/Globulin Ratio 0.8 L 04/06/20 07:03: WBC 13.6 H, RBC 4.10 L, Hgb 13.1, Hct 40.5, MCV 98.8, MCH 32.0, MCHC 32.3, RDW Std Deviation 51.8 H, RDW Coeff of Josue 14.2, Plt Count 248, MPV 9.6, Immature Gran % (Auto) 0.300, Neut % (Auto) 70.9 H, Lymph % (Auto) 19.9, Bennett % (Auto) 7.5, Eos % (Auto) 1.0, Baso % (Auto) 0.4, Absolute Neuts (auto) 9.6 H, Absolute Lymphs (auto) 2.69, Nucleated RBC % 0 04/06/20 07:03: Sodium 139, Potassium 3.5, Chloride 106, Carbon Dioxide 23.0, Anion Gap 10, BUN 27 H, Creatinine 0.92, Estim Creat Clear Calc 44.96, Est GFR (MDRD) Af Amer 80, Est GFR (MDRD) Non-Af 66, BUN/Creatinine Ratio 29.5 H, Glucose 117 H, Calcium 9.2, Phosphorus 2.4 L, Magnesium 2.4, Total Bilirubin 0.60, AST 28, ALT 81 H, Alkaline Phosphatase 91, Total Protein 6.2 L, Albumin 3.0 L, Globulin 3.2, Albumin/Globulin Ratio 0.9 Current Medications Acetaminophen (Acetaminophen 325 Mg Tablet) 650 mg PO Q6H PRN PRN PRN Reason: Pain 1-10 or Fever Last Admin: 04/06/20 04:23 Dose: 650 mg Documented by: Al Hydroxide/Mg Hydroxide (Mag Hydrox/Al Hydrox/Simeth 30 Ml Udc) 30 ml PO Q6H PRN PRN PRN Reason: dyspesia Albuterol Sulfate (Albuterol 2.5 Mg/3 Ml Vial.Neb.) 2.5 mg INHALATION Q2H PRN PRN PRN Reason: Dyspnea, wheezing Last Admin: 04/06/20 04:34 Dose: 2.5 mg Documented by: Albuterol/Ipratropium (Ipratropium/Albuterol Sulfate 3 Ml Ampul.Neb) 3 ml INHALATION Q4HWA.RT [facility] Last Admin: 04/06/20 06:43 Dose: 3 ml Documented by: Amlodipine Besylate (Amlodipine 5 Mg Tablet) 5 mg PO DAILY [facility] Last Admin: 04/06/20 09:37 Dose: 5 mg Documented by: Aspirin (Aspirin 81 Mg Tab.Chew) 81 mg PO DAILY@0800 [facility] Last Admin: 04/06/20 09:39 Dose: 81 mg Documented by: Bisacodyl (Bisacodyl 10 Mg Suppository) 10 mg RC DAILY PRN PRN Reason: Constipation Buprenorphine HCl (Buprenorphine Hcl 2 Mg Tab.Subl) 4 mg SL Q8H [facility]; Taper Stop: 04/08/20 21:59 Last Admin: 04/06/20 05:02 Dose: 4 mg Documented by: Clonidine (Clonidine Hcl 0.1 Mg Tablet) 0.1 mg PO Q8H PRN PRN PRN Reason: RESTLESSNESS Dicyclomine HCl (Dicyclomine 10 Mg Capsule) 20 mg PO Q6H PRN PRN PRN Reason: Abdominal Discomfort Enoxaparin Sodium (Enoxaparin 30 Mg/0.3 Ml Syringe) 30 mg SC DAILY@0600 [facility] Last Admin: 04/06/20 05:04 Dose: 30 mg Documented by: Famotidine (Famotidine 20 Mg Tablet) 20 mg PO DAILY [facility] Last Admin: 04/06/20 09:38 Dose: 20 mg Documented by: Fluoxetine HCl (Fluoxetine 20 Mg Capsule) 20 mg PO DAILY [facility] Last Admin: 04/06/20 09:40 Dose: 20 mg Documented by: Gabapentin (Gabapentin 300 Mg Capsule) 300 mg PO Q8H PRN PRN PRN Reason: moderate to severe anxiety Hydralazine HCl (Hydralazine 20 Mg/Ml Vial) 10 mg IV Q4H PRN PRN PRN Reason: SBP > 160 Last Admin: 04/04/20 13:14 Dose: 10 mg Documented by: Hydroxyzine Pamoate (Hydroxyzine Carrol 25 Mg Capsule) 50 mg PO Q6H PRN PRN PRN Reason: mild anxiety Last Admin: 04/06/20 04:28 Dose: 50 mg Documented by: Sodium Chloride () 250 mls @ 15 mls/hr IV .[id number] PRN PRN Reason: Saline Flush Last Infusion: 04/05/20 12:00 Dose: Infused Documented by: Sodium Chloride () 250 mls @ 15 mls/hr IV .[id number] PRN PRN Reason: Additional IVPB Infusion Last Infusion: 04/04/20 19:30 Dose: Infused Documented by: Ampicillin Sodium/Sulbactam (Sodium 3 gm/ Sodium Chloride) 112 mls @ 150 mls/hr IV Q8 [facility] Levothyroxine Sodium (Levothyroxine 25 Mcg Tablet) 25 mcg PO DAILY@0600 [facility] Last Admin: 04/06/20 05:04 Dose: 25 mcg Documented by: Loperamide HCl (Loperamide 2 Mg Capsule) 2 mg PO Q4H PRN PRN PRN Reason: LOOSE STOOLS Last Admin: 04/05/20 21:27 Dose: 2 mg Documented by: Lorazepam (Lorazepam 1 Mg Tablet) 2 mg PO Q2H PRN PRN; Protocol PRN Reason: CIWA score > 8 but <15 Lorazepam (Lorazepam 1 Mg Tablet) 2 mg PO UD PRN; Protocol PRN Reason: CIWA score >/=15. Last Admin: 04/06/20 04:23 Dose: 2 mg Documented by: Lorazepam (Lorazepam 2 Mg/Ml Syringe) 2 mg IV Q2H PRN PRN; Protocol PRN Reason: CIWA score > 8 but <15 Last Admin: 04/05/20 12:55 Dose: 2 mg Documented by: Lorazepam (Lorazepam 2 Mg/Ml Syringe) 2 mg IV UD PRN; Protocol PRN Reason: CIWA score >/=15. Methocarbamol (Methocarbamol 750 Mg Tablet) 1,500 mg PO Q6H PRN PRN PRN Reason: MUSCLE SPASM Last Admin: 04/05/20 10:35 Dose: 1,500 mg Documented by: Metoprolol Tartrate (Metoprolol Tartrate 50 Mg Tablet) 50 mg PO BID [facility] Last Admin: 04/06/20 09:38 Dose: 50 mg Documented by: Multivitamins/Minerals (Multivitamins,Ther W-Minerals Tablet) [facility] Last Admin: 04/06/20 09:38 Dose: 1 tablet Documented by: Nicotine (Nicotine 21 Mg Patch) 21 mg TD DAILY [facility] Last Admin: 04/06/20 09:40 Dose: 21 mg Documented by: Ondansetron HCl (Ondansetron 8 Mg Tablet) 8 mg PO Q8H PRN PRN PRN Reason: NAUSEA Potassium Chloride (Potassium Chloride Oral Tablet 20 Meq) 20 meq PO DAILY [facility] Last Admin: 04/06/20 09:49 Dose: Not Given Documented by: Senna (Senna Tablet) 2 tablet PO QHS PRN PRN Reason: Constipation Senna/Docusate Sodium (Senna/Docusate Sodium 1 Tablet) 2 tablet PO BID [facility] Last Admin: 04/06/20 09:47 Dose: Not Given Documented by: Sodium Chloride (Sodium Cl For Inhalation 15 Ml Vial.Neb.) 5 ml INHALATION Q5M PRN PRN Reason: Suctioning Sodium Chloride (0.9% Saline Lock 10 Ml Syringe) 10 - 40 ml IV UD PRN PRN Reason: SALINE FLUSH Last Admin: 04/06/20 07:13 Dose: 10 ml Documented by: Trazodone HCl (Trazodone 100 Mg Tablet) 100 mg PO QHS PRN PRN PRN Reason: INSOMNIA Last Admin: 04/05/20 23:28 Dose: 100 mg Documented by: Home Medications: Medications to take at Discharge Amlodipine [Norvasc] 5 mg PO DAILY #30 tab 01/24/17 Levothyroxine [Synthroid] 25 mcg PO DAILY@0600 #30 tab 01/24/17 Potassium Chloride Oral Tablet [K-Dur] 20 meq PO DAILY #30 tab 01/24/17 Amlodipine [Norvasc] 5 mg PO DAILY #30 tab 04/07/20 Amox/Clavulanate Tablet [Augmentin Tablet] 875 mg PO Q12H #10 tab 04/07/20 Aspirin [Aspirin, Baby] 81 mg PO DAILY@0800 #30 tab.chew 04/07/20 Fluoxetine [Prozac] 20 mg PO DAILY #30 cap 04/07/20 Folic Acid 1 mg PO DAILY@0800 #30 tab 04/07/20 Metoprolol Tartrate [Lopressor (beta esha)] 50 mg PO BID #90 tab 04/07/20 Nicotine [Nicoderm Cq] 21 mg TRANSDERM. DAILY #30 patch 04/07/20 Senna/Docusate Sodium [Senokot-S] 2 tab PO BID PRN PRN tab 04/07/20 Thiamine Hydrochloride [Vitamin B1] 100 mg PO DAILYCM #30 tab 04/07/20 Following Prescriptions Were Given to Patient: Aspirin [Aspirin, Baby] 81 mg PO DAILY@0800 #30 tab.chew Transmission Status: [id number] Amox/Clavulanate Tablet [Augmentin Tablet] 875 mg PO Q12H #10 tab Transmission Status: Received by [facility][id number] Folic Acid 1 mg PO DAILY@0800 #30 tab Transmission Status: Received by [facility][id number] Nicotine [Nicoderm Cq] 21 mg TRANSDERM. DAILY #30 patch Transmission Status: Received by [facility][id number] Amlodipine [Norvasc] 5 mg PO DAILY #30 tab Transmission Status: Received by [facility][id number] Fluoxetine [Prozac] 20 mg PO DAILY #30 cap Transmission Status: Received by [facility][id number] Thiamine Hydrochloride [Vitamin B1] 100 mg PO DAILYCM #30 tab Transmission Status: [facility] by [id number] Primary Care Physician: Care Physician,No Primary [Primary Care Provider] - Medical Necessity - Tobacco Use Smoking Status: Current every day smoker Tobacco Use: Cigarettes Meaningful Use Info Meaningful Use Diagnoses (Choose all that apply): None applicable Inpatient E&M: [id number] [facility]
[2020-04-07] MEDS: Amox/Clavulanate 875 MG Tablet PO (09:50)
[2020-04-07] MEDS: FLUoxetine 20 MG Capsule PO (09:57)
[2020-04-07] MEDS: Famotidine 20 MG Tablet PO (09:57)
[2020-04-07] MEDS: Metoprolol Tartrate 50 MG Tablet PO (09:57)
[2020-04-07] MEDS: amLODIPine 5 MG Tablet PO (09:57)
== END 2020-04-07 11:38 | disposition home or self-care (01) | DRG 917 ==
LOC: ED 04-03 00:21 → ICU 04-03 02:08 → PCU 04-05 16:01
PROVIDERS: Internal Medicine; Internal Medicine Critical Care Medicine; Internal Medicine Infectious Disease; Admitting Provider Family Medicine; Emergency Provider Emergency Medicine; Visit Provider Internal Medicine
DX: T40.601A Poisoning by unspecified narcotics, accidental (unintentional), initial encounter (principal); A40.3 Sepsis due to Streptococcus pneumoniae; I46.8 Cardiac arrest due to other underlying condition; J69.0 Pneumonitis due to inhalation of food and vomit; J96.01 Acute respiratory failure with hypoxia; G92 Toxic encephalopathy; J15.211 Pneumonia due to Methicillin susceptible Staphylococcus aureus; J96.02 Acute respiratory failure with hypercapnia; J15.4 Pneumonia due to other streptococci; N17.9 Acute kidney failure, unspecified; I50.32 Chronic diastolic (congestive) heart failure; M62.82 Rhabdomyolysis; I27.29 Other secondary pulmonary hypertension; I11.0 Hypertensive heart disease with heart failure; T43.621A Poisoning by amphetamines, accidental (unintentional), initial encounter; B96.3 Hemophilus influenzae [H. influenzae] as the cause of diseases classified elsewhere; F17.210 Nicotine dependence, cigarettes, uncomplicated; F32.9 Major depressive disorder, single episode, unspecified; F41.9 Anxiety disorder, unspecified; F10.10 Alcohol abuse, uncomplicated; E03.9 Hypothyroidism, unspecified; Z79.899 Other long term (current) drug therapy; E66.9 Obesity, unspecified; Z68.30 Body mass index [BMI] 30.0-30.9, adult; R74.01 Elevation of levels of liver transaminase levels
CPT/HCPCS: 31500; 31720; 36415; 36600; 51702; 70450; 71045; 74018; 80053; 80061; 80202; 80307; 81001; 82077; 82550; 82803; 83605; 83690; 83735; 83880; 84100; 84478; 84484; 85025; 85610; 86703; 86706; 86803; 87040; 87070; 87077; 87149; 87186; 87205; 87340; 87426; 87449; 87633; 87641; 92950; 93005; 93306; 94002; 94003; 94640; 94660; 97162; 97530; 97802; 97803; 99251; 99285; 99406; J7030; J7040; J7050; A4216; G0463; J1940; J3010